=== PATIENT | male | born 1980 | race Caucasian/White ===

== ENCOUNTER 2020-01-01 17:26 | Emergency (ER) | payer MEDICARE, SELFPAY ==
[2020-01-01 17:37] VITALS: BP 135/84; PULSE 85; RESP 17; TEMP 37; O2SAT 96; BMI 36.6
--- NOTE | 2020-01-01 18:02 | ED_ITS ---
Entered by Sabrina Gilmore, acting as scribe for Jeny Michelle DO Jan 01, 2020 17:26 HPI - Extremity Problem General: Chief complaint: Extremity Injury, Lower Stated complaint: Left leg pain Time Seen by Provider: 01/01/20 18:02 Source: patient Mode of arrival: ambulatory Limitations: other (DEAF) History of Present Illness: HPI Narrative: 39 yo Male presents to ED with complaint of left lower extremity pain. Pt has had a DVT in the past and states that the pain is in the same place and feels the same. MD Complaint: extremity pain Onset (ago): hour(s) Pain Consistency: constant Location: left and lower extremity Severity scale (1-10): 10 Quality: sharp Relieving factors: nothing Exacerbating factors: nothing Associated symptoms: Deny chest pain, fever(s) or rash Context: history of DVT Review of Systems Const: Denies: fever, chills, change in appetite or malaise Eyes: Denies: change in vision, blurry vision, eye discharge or eye redness ENMT: Denies: throat pain, uvular edema, painful swallowing, mouth pain, dental pain, nasal congestion or facial/sinus pain Card: Denies: chest pain, irregular heart rhythm, swelling of feet/ankles, shortness of breath on exertion, shortness of breath when lying down or leg pain with exertion Resp: Denies: shortness of breath, productive cough, wheezing or coughing up blood GI: Denies: abdominal pain, nausea, vomiting, diarrhea, constipation or fecal incontinence : Denies: flank pain, painful urination, urinary frequency, urinary urgency or urinary hesitancy Musc: Reports: extremity pain (left lower); Denies: neck pain, back pain or extremity swelling Skin/Breast: Denies: rash, itching, redness, yellow skin or dry skin Neuro: Denies: headache, numbness in extremities, weakness in extremities, changes in sensation, lack of coordination or difficulty walking Psych: Denies: anxiety, depression, mood swings, panic attacks, sleeping less, suicidal ideation or homicidal ideation Endo: Denies: excessive urination, excessive thirst or tired all the time [place]/Lymph: Denies: easy bruising, petechiae or enlarged lymph nodes All/Imm: Denies: hives, throat swelling, facial swelling, acute wheezing or seasonal allergies PFSH ED PFSH: Statuses (acute, chronic, etc) shown below reflect problem list status as previously entered and may not be historically accurate Medical History (Updated 01/01/20 @ 19:00 by Jeny Michelle DO) DVT (deep venous thrombosis) (Acute) Social History Smoking and tobacco status: never smoked Physical Exam Const: COMMON NORMALS: no apparent distress, oriented x3, no limitations, healthy appearing, alert and well nourished GENERAL APPEARANCE: cooperative, comfortable, well kempt and well developed ORIENTATION/CONSCIOUSNESS: Yes awake, Yes oriented to person, Yes oriented to place and Yes oriented to time HENMT: COMMON NORMALS: normocephalic, head/scalp atraumatic, hearing grossly normal bilaterally, external ears normal, EAC's normal, TM's normal bilaterally, external nose normal, nasal mucous membranes and turbinates normal, moist oral mucous membranes, oropharynx normal, dentition normal and gingiva normal HEAD & SCALP: normal to inspection, normocephalic and atraumatic FACE & SINUS: normal facial exam NOSE: external nose normal and nasal mucous membranes and turbinates normal EXTERNAL EAR: Yes external ears normal EXTERNAL AUDITORY CANAL: EAC's normal TYMPANIC MEMBRANE: TM's normal bilaterally MOUTH: oral and palatal mucosa normal, lip normal and tongue normal THROAT: no uvular edema Eye: COMMON NORMALS: PERRL, EOMs intact bilaterally, conjunctivae normal, no scleral icterus and normal visual randall by confrontation GENERAL EYE: normal appearance of both eyes and normal light reflex VISUAL ACUITY: Yes acuity normal ALIGNMENT: Yes alignment normal PERIORBITAL: periorbital findings normal EYELID: eyelids normal CONJUNCTIVA: Yes conjunctivae normal SCLERA: sclerae normal PUPIL: Yes PERRL and Yes accommodation reflex normal DIRECT OPHTHALMOSCOPY: Yes normal light reflex Neck/C-Spine: COMMON NORMALS: full ROM, no lymphadenopathy, supple, no meningeal signs and no JVD GENERAL: Yes normal visual inspection CAROTIDS: Yes normal carotid upstroke CERVICAL SPINE: Yes cervical ROM normal Lymph: LYMPHATIC: no lymphadenopathy noted Chest: COMMONS NORMALS: inspection of chest normal CHEST: Yes symmetrical chest wall rise Resp: COMMON NORMALS: normal respiratory effort, no retractions, no use of accessory muscles and clear to auscultation bilaterally EFFORT & INSPECTION: Yes able to speak in complete sentences and Yes symmetric chest movement AUSCULTATION: clear to auscultation bilaterally Cardio: COMMON NORMALS: no JVD, regular rate, regular rhythm, S1 normal heart sound, S2 normal heart sound, no murmurs and peripheral pulses 2+ throughout RATE: regular rate RHYTHM: regular rhythm HEART SOUNDS: S1 normal and S2 normal PERIPHERAL PULSES: pulses 2+ throughout GI: COMMON NORMALS: normal to inspection, nondistended, normoactive bowel sounds and non-tender : COMMON NORMALS: Yes no CVA tenderness BLADDER/KIDNEY EXAM: Yes no CVA tenderness Back/Pelvis: COMMON NORMALS: no CVA tenderness, thoracic and lumbar spine normal to inspection, no thoracic nor lumbar tenderness and thoraco-lumbar ROM normal Extremity: COMMON NORMALS: normal to inspection, full ROM, normal capillary refill, no calf tenderness and no pedal edema Neuro: COMMON NORMALS: oriented x3, CN's II-XII intact bilaterally, moves all extremities, no focal motor deficits, no sensory deficits noted and gait normal SENSORIUM/ORIENTATION: Yes alert, Yes oriented to person, Yes oriented to place and Yes oriented to time MENINGEAL SIGNS: Yes no meningeal signs SPEECH: speech normal GAIT: Yes normal gait MOTOR EXAM: strength 5/5 throughout, no pronator drift and no tremor noted Psych: COMMON NORMALS: mental status grossly normal, thought process normal, cooperative, affect normal, speech normal and activity/motor behavior normal APPEARANCE: Yes well kempt SPEECH: Yes normal speech THOUGHT PROCESS: normal thought process THOUGHT CONTENT: Yes normal thought content INSIGHT: insight good Skin: COMMON NORMALS: no rashes or lesions noted, no wounds, skin turgor normal and no jaundice GENERAL SKIN EXAM: no rashes or lesions noted and turgor normal Course Vital Signs: Vital signs: Vital Signs Temperature 98.6 F 01/01/20 17:37 Pulse Rate 85 01/01/20 17:37 Respiratory Rate 17 01/01/20 17:37 Blood Pressure 135/84 01/01/20 17:37 Pulse Oximetry 96 01/01/20 17:37 Discharge Plan Discharge Patient Disposition: Home, Self-Care Clinical Impression: Claudication, intermittent Leg pain, posterior Qualifiers: Laterality: left Qualified Code(s): M79.605 - Pain in left leg Condition: Stable Prescriptions: [employer] Aspirin 325 mg tablet 325 mg PO DAILY Qty: 30 RF: 0 Discharge Orders: Discharge Order (Routine); Ordered 01/01/20 Ordered By: Jeny Michelle Referrals: Bunny Friend MD [Primary Care Provider] - Discharge Diet: Usual diet Discharge Activity: Resume usual activity Patient Instructions: Leg Cramps (ED) Coding Level of Care Code ED Pediatric Anesthesiologist for Chg Fwd Exam Problem Focused The documentation recorded by the Mando hanna Carmen, accurately reflects the service I personally performed and the decisions made by Viviana cardoza Amanda, DO Jan 01, 2020 17:26
--- NOTE | 2020-01-01 18:06 | USCV_ITS ---
Raad Miguel Angel Age: 39 Gender: M : 1980 Exam Date: 01/01/2020 18:21 Ordering Phys: Jeny Michelle DO Technologist: Celi Beltre [place] [facility] [place]: KNOWN SUPERFICIAL THROMBUS LT LSV. TODAY IT HURTS AT THAT AREA HISTORY: Known superficial thrombus lt LSV. Today it hurts at that same area PROCEDURES: Venous duplex imaging was performed in only the left lower extremity. The following venous structures were evaluated: common femoral vein, profunda vein, proximal portion of the greater saphenous vein, superficial femoral vein, and the popliteal vein. In addition, the posterior tibial, Lt LSV andd peroneal trunk were evaluated. Serial compression, augmentation maneuvers, and spectral Doppler flow evaluation were performed. FINDINGS: No DVT seen in any vessel examined today. There is old thrombus in the Lt LSV in the Pop fossa. There is flow in the Lt LSV. CONCLUSIONS 1. No evidence of left lower extremity occlusive or obvious non occlusive DVT. 2. Improved left lower extremity superficial thrombophlebitis. Jens Kirkland MD (Electronically Signed) Final Date: 02 January 2020 11:29 S
[2020-01-01 19:05] VITALS: BP 182/92; PULSE 86; RESP 18; O2SAT 97
== END 2020-01-01 19:05 | disposition home or self-care (01) ==
PROVIDERS: Emergency Provider Emergency Medicine; Family Provider Family Medicine; PCP Family Medicine
DX: M79.605 Pain in left leg (principal); I73.9 Peripheral vascular disease, unspecified; Z86.718 Personal history of other venous thrombosis and embolism
CPT/HCPCS: 93971; 99281; 99282

== ENCOUNTER 2020-02-22 13:25 | Emergency (ER) | payer MEDICARE, MEDICAID, SELFPAY ==
[2020-02-22 13:27] VITALS: BP 151/92; PULSE 74; RESP 16; TEMP 36.7; O2SAT 96; BMI 36.6
--- NOTE | 2020-02-22 13:36 | W.ED.BACK ---
HPI - Back Pain/Injury General: Chief Complaint: Back Pain/Injury Stated Complaint: BACK PAIN Time Seen by Provider: 02/22/20 13:35 Source: patient Mode of arrival: ambulatory Limitations: language barrier (pt is deaf) History of Present Illness: HPI Narrative: Patient is a 40-year-old male who presents to ED today with complaints of lower back pain. Patient is deaf and all communication involved writing questions and answers on paper. He tells me back pain initially began about 5 days ago. He had no known injury or trauma. He denies any radicular symptoms to his pain. Patient does have a history of previous back pains. He denies any saddle anesthesia. He has not had any problems with urinating or defecating. Patient was seen at urgent care recently but continues to have pain. Patient states his primary care provider is at [facility]. MD elicited complaint: back pain Pertinent past history: prior back pain Onset (ago): day(s) Timing: constant Severity: moderate Similar Symptoms Previously: Yes Location: lumbar spine Radiation: none Exacerbating factors: movement and lifting Relieving factors: none Associated symptoms: Reports no associated symptoms; Deny abdominal pain, chills, dysuria, fever(s), nausea, urinary urgency or vomiting Review of Systems Const: Denies: fever or chills Card: Denies: chest pain Resp: Denies: shortness of breath GI: Denies: abdominal pain, nausea or vomiting : Denies: flank pain, difficulty urinating, painful urination, urinary frequency or urinary urgency Musc: Reports: back pain; Denies: neck pain, extremity pain, extremity swelling, joint pain or joint swelling Neuro: Denies: headache, numbness in extremities, weakness in extremities or changes in sensation [facility] PFSH: Medical History (Updated 02/22/20 @ 14:01 by ZEKE Johnson) DVT (deep venous thrombosis) Social History Smoking and tobacco status: never smoked Physical Exam Const: COMMON NORMALS: no apparent distress, oriented x3 and alert NUTRITIONAL APPEARANCE: obese HENMT: COMMON NORMALS: normocephalic and head/scalp atraumatic HEAD & SCALP: normocephalic and atraumatic Resp: COMMON NORMALS: normal respiratory effort and clear to auscultation bilaterally AUSCULTATION: clear to auscultation bilaterally Cardio: COMMON NORMALS: regular rate and regular rhythm RATE: regular rate RHYTHM: regular rhythm : COMMON NORMALS: Yes no CVA tenderness BLADDER/KIDNEY EXAM: Yes no CVA tenderness Back/Pelvis: COMMON NORMALS: no CVA tenderness, thoraco-lumbar ROM normal and straight leg raise negative bilaterally THORACIC SPINE/UPPER BACK: Yes normal to inspection, No thoracic spinal tenderness and No paraspinal muscle spasm LUMBAR SPINE/LOWER BACK: Yes lumbar spinal tenderness Lumbar spinal tenderness location: L3, L4 and L5 and Yes paraspinal muscle tenderness Lumbar paraspinal muscle tenderness: bilateral PELVIS: Yes buttocks normal SACROILIAC JOINTS: Yes SI joints normal Extremity: COMMON NORMALS: normal to inspection, full ROM, normal capillary refill, no joint enlargement, no calf tenderness and no pedal edema Neuro: COMMON NORMALS: oriented x3, no focal motor deficits, no sensory deficits noted and gait normal SENSORIUM/ORIENTATION: Yes alert GAIT: Yes normal gait MOTOR EXAM: strength 5/5 throughout Skin: COMMON NORMALS: no rashes or lesions noted GENERAL SKIN EXAM: no rashes or lesions noted Course Vital Signs: Vital signs: Vital Signs Temperature 98.1 F 02/22/20 13:27 Pulse Rate 74 02/22/20 13:27 Respiratory Rate 16 02/22/20 14:28 Blood Pressure 171/91 02/22/20 14:28 Pulse Oximetry 96 02/22/20 13:27 MDM - Back Pain/Injury MDM Narrative: Medical decision making narrative: Explained to patient how XRs will be of very low yield on today's visit. There is no neurological deficits to warrant emergent CT imaging. Recommend he follow-up with his primary care provider for continued pain. Discharge Plan Discharge Patient Disposition: Home, Self-Care Clinical Impression: Acute back pain Qualifiers: Back pain location: low back pain Back pain laterality: midline Sciatica presence: without sciatica Qualified Code(s): M54.5 - Low back pain Condition: Stable Prescriptions: New cyclobenzaprine 10 mg tablet 10 mg PO TID Qty: 14 RF: 0 tramadol 50 mg tablet 50 mg PO Q6H PRN (Reason: pain) Qty: 14 RF: 0 No Action ketorolac 30 mg/mL solution 60 mg IM ONCE Qty: 2 RF: 0 baclofen 10 mg tablet 10 mg PO TID PRN (Reason: muscle spasm) Qty: 15 RF: 0 aspirin 325 mg tablet 325 mg PO DAILY PRN (Reason: pain) Qty: 30 RF: 0 Discharge Orders: Discharge Order (Routine); Ordered 02/22/20 Ordered By: Michelle Powers Referrals: Bunny Friend MD [Primary Care Provider] - Discharge Diet: Usual diet Discharge Activity: Increase activity as tolerated Patient Instructions: Acute Low Back Pain (ED), Back Pain (ED) Activity Restrictions/Additional Instructions: 1) Finish your prednisone prescription as directed 2) You may take the cyclobenzaprine prescription for a muscle relaxer if you are out of your baclofen-DO NOT TAKE THESE MEDICATIONS TOGETHER 3) You may continue the aspirin that was prescribed OR you may try 800mg Ibuprofen ever 6-8 hours. DO NOT TAKE BOTH TOGETHER. 4) Please follow up with your primary care provider for further evaluation. Coding Level of Care Code ED Nursing Resident for Nati Pierce
[2020-02-22] MEDS: orphenadrine 30 mg/mL Inj 2 mL 60 MG IM (14:02)
[2020-02-22] MEDS: dexamethasone 10 mg/mL INJ IM (14:02)
[2020-02-22 14:28] VITALS: BP 171/91; RESP 16
== END 2020-02-22 14:38 | disposition home or self-care (01) ==
PROVIDERS: Emergency Provider Physician Assistant; Family Provider Family Medicine; PCP Family Medicine
DX: M54.5 Low back pain (principal); E66.9 Obesity, unspecified; Z68.36 Body mass index [BMI] 36.0-36.9, adult
CPT/HCPCS: 12345; 96372; 99281; 99283; J1100; J2360

== ENCOUNTER 2020-05-30 08:42 | Emergency (ER) | payer MEDICARE, MEDICAID, SELFPAY ==
[2020-05-30 08:48] VITALS: BP 164/113; PULSE 81; RESP 18; TEMP 36.6; O2SAT 96; BMI 36.6
[2020-05-30 09:07] VITALS: BP 147/91; PULSE 78; RESP 17; O2SAT 96
--- NOTE | 2020-05-30 09:08 | ECG_ITS ---
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 Measurements Intervals [place] Rate: 82 P: 57 [place]: 185 QRS: 23 QRSD: 112 T: 35 QT: 366 QTc: 429 Interpretive Statements SINUS RHYTHM POSSIBLE LEFT ATRIAL ENLARGEMENT [-0.1mV P WAVE IN V1/V2] MODERATE INTRAVENTRICULAR CONDUCTION DELAY [110+ ms QRS DURATION] NONSPECIFIC T-WAVE ABNORMALITY Compared to ECG 01/20/2016 09:16:03 Intraventricular conduction delay now present T-wave abnormality now present Electronically Signed On 05-30-2020 21:40:43 CDT by Joseph Otero M.D. [id number] f
--- NOTE | 2020-05-30 09:08 | XRR_ITS ---
PROCEDURE INFORMATION: Exam: XR Chest, 1 View Exam date and time: 05/30/2020 9:33 AM Age: 40 years old Clinical indication: Chest pain; Type not specified TECHNIQUE: Imaging protocol: XR of the chest Views: 1 view. COMPARISON: CR Chest 2 views* [id number] 10/06/2018 9:28 PM FINDINGS: Lungs: Unremarkable. No consolidation. Pleural space: Unremarkable. No pleural effusion. No pneumothorax. Heart/Mediastinum: Unremarkable. No cardiomegaly. Bones/joints: Unremarkable. XR/XR chest 1V portable [id number] IMPRESSION: No acute findings.
--- NOTE | 2020-05-30 09:16 | W.ED.CHESTPA ---
HPI - Chest Pain General: Chief Complaint: Chest Pain Stated Complaint: CP/GOLDBERG Time Seen by Provider: 05/30/20 08:50 History of Present Illness: HPI narrative: 40-year-old male presents emergency room with complaint of chest pain. Patient is a chest pain for last 2 to 3 days is worse with moving his arms when he pushes or pulls things he has been slightly short of breath with it he is diaphoretic. Patient is not able to speak he is mute and deaf he communicated with me with a friend who signs for him. He denies any nausea or vomitiing. He has noticed that with palpation across the chest wall it actually gets worse he can reproduce the pain in the chest pressure on the lateral left chest wall. He denies any GI or symptoms not had any cough or shortness of breath or fevers not been around anyone positive for [place] that he is aware of. MD complaint: chest pain Onset (ago): day(s) (2) Timing of current episode: episodic Prior episodes: No Onset: during exertion Pain location: left chest Pain radiation: none Quality: aching Relieving factors: remaining still and sitting upright Exacerbating factors: palpation (Left chest wall and lateral pectoralis muscle) Associated symptoms: Reports no associated symptoms; Deny abdominal pain, dyspnea, fever(s), nausea or vomiting Review of Systems Const: Denies: fever(s), chills, body aches, change in appetite, fatigue or malaise ENMT: Denies: throat pain, ear or mastoid pain, nasal discharge or nasal congestion Card: Denies: chest pain, edema, dyspnea on exertion or orthopnea Resp: Denies: dyspnea, productive cough or non-productive cough GI: Denies: abdominal pain, nausea, vomiting, hematemesis, coffee ground emesis, diarrhea, constipation, bloating, hematochezia or melena : Denies: flank pain, dysuria, urinary frequency or urinary urgency Skin/Breast: Denies: rash or pruritus PFSH ED PFSH: Medical History Deaf DVT (deep venous thrombosis) Surgical History H/O left knee surgery Social History Smoking and tobacco status: never smoked Physical Exam Const: COMMON NORMALS: no acute distress GENERAL APPEARANCE: cooperative and comfortable ORIENTATION/CONSCIOUSNESS: Yes awake, Yes oriented to person, Yes oriented to place and Yes oriented to time HENMT: COMMON NORMALS: normocephalic, atraumatic, Normal nasal mucous membranes and turbinates present, moist oral mucous membranes and oropharynx normal HEAD & SCALP: normocephalic and atraumatic NOSE: Normal nasal mucous membranes and turbinates present Eye: COMMON NORMALS: Equal, round and reactive pupils present, EOMs intact bilaterally, conjunctivae normal and no scleral icterus CONJUNCTIVA: Yes conjunctivae normal PUPIL: Yes Equal, round and reactive pupils present Neck/C-Spine: COMMON NORMALS: full ROM, no lymphadenopathy, supple and no JVD Lymph: LYMPHATIC: no lymphadenopathy noted and no lymphedema noted Chest: OTHER: Reproducible chest wall pain in the left lateral pectoralis muscle and anterior axillary line patient states that reproduce the pain that brought him in today. Resp: COMMON NORMALS: normal respiratory effort, No retractions, No use of accessory muscles and clear to auscultation bilaterally AUSCULTATION: clear to auscultation bilaterally Cardio: COMMON NORMALS: no JVD, regular rate, regular rhythm and No murmurs present (Cardio) RATE: regular rate RHYTHM: regular rhythm GI: COMMON NORMALS: Soft to palpation and No hepatosplenomegaly present AUSCULTATION: Yes normoactive bowel sounds PALPATION: Yes Soft to palpation, No Tenderness to palpation present (GI), No Guarding due to palpation present (GI) and Yes No hepatosplenomegaly present Extremity: COMMON NORMALS: normal to inspection, capillary refill normal, no clubbing, cyanosis or edema, no calf tenderness and no pedal edema Neuro: SENSORIUM/ORIENTATION: Yes oriented to person, Yes oriented to place and Yes oriented to time Skin: COMMON NORMALS: no rashes or lesions noted GENERAL SKIN EXAM: no rashes or lesions noted Course Vital Signs: Vital signs: Vital Signs Temperature 97.8 F 05/30/20 08:48 Pulse Rate 85 05/30/20 12:17 Respiratory Rate 15 05/30/20 12:17 Blood Pressure 144/105 05/30/20 12:17 Pulse Oximetry 96 05/30/20 12:17 MDM - Chest Pain MDM Narrative: Medical decision making narrative: His blood pressure did improve slightly while he was here we will hold off on treating anything that have him follow-up with his primary care doctor we will have him start taking an aspirin daily and we will set him up for an exercise test as worsening change symptoms return to the emergency room Lab Data: Labs: Lab Results 05/30/20 05/30/20 05/30/20 Range/Units 09:07 09:07 09:07 WBC 8.9 (4.0-10.0) 10^3/ uL RBC 5.28 (4.1-5.3) 10^6/u L Hgb 14.9 (11.7-16.6) g/dL Hct 45.1 (42.0-52.0) % MCV 85.4 (80-94) fL MCH 28.2 (28.0-34.0) pg MCHC 33.0 (30.0-36.0) g/dL RDW 12.5 (12.1-15.1) % Plt Count 339 (130-400) 10^3/c mm MPV 9.4 (7.4-10.4) fL Neut % (Auto) 57.5 % Lymph % (Auto) 28.5 % [place] % (Auto) 8.7 % Eos % (Auto) 4.2 % Baso % (Auto) 0.7 % Neut # (Auto) 5.1 (1.8-7.7) 10^3/u L Lymph # (Auto) 2.5 (0.8-4.8) 10^3/u L [place] # (Auto) 0.8 (0.2-0.9) 10^3/u L Eos # (Auto) 0.4 (0.0-0.8) 10^3/u L Baso # (Auto) 0.1 (0.0-0.1) 10^3/u L Nucleated RBC % (a uto) 0 % Nucleated RBCs # 0.0 /100WBC Sodium 139 (136-145) mmol/L Potassium 4.2 (3.5-5.1) mmol/L Chloride 102 (98-107) mmol/L Carbon Dioxide 25 (22-29) mmol/L Anion Gap 16.2 (5-19) BUN 15 (6-20) mg/dL Creatinine 0.9 (0.7-1.2) mg/dL GFR Calculation 94.4 (90-130) mL/min Glucose 96 (65-115) mg/dL Calculated Osmolal ity 284 L (285-295) mOsm/k g Calcium 10.2 (8.5-10.5) mg/dL Total Bilirubin 0.3 (0.15-1.2) mg/dL AST 19 (0-40) U/L ALT 27 (0-41) U/L Alkaline Phosphata se 94 (40-130) IU/L Troponin T Baselin e 8 (0-15) ng/L Troponin T 120 Min [place] (0-15) ng/L Delta Troponin T (0-10) ABS# Total Protein 7.0 (6.6-8.7) g/dL Albumin 4.9 (3.5-5.2) g/dL Globulin 2.1 (1.3-4.6) g/dL 05/30/20 Range/Units 11:07 WBC (4.0-10.0) 10^3/ uL RBC (4.1-5.3) 10^6/u L Hgb (11.7-16.6) g/dL Hct (42.0-52.0) % MCV (80-94) fL MCH (28.0-34.0) pg MCHC (30.0-36.0) g/dL RDW (12.1-15.1) % Plt Count (130-400) 10^3/c mm MPV (7.4-10.4) fL Neut % (Auto) % Lymph % (Auto) % [place] % (Auto) % Eos % (Auto) % Baso % (Auto) % Neut # (Auto) (1.8-7.7) 10^3/u L Lymph # (Auto) (0.8-4.8) 10^3/u L [place] # (Auto) (0.2-0.9) 10^3/u L Eos # (Auto) (0.0-0.8) 10^3/u L Baso # (Auto) (0.0-0.1) 10^3/u L Nucleated RBC % (a uto) % Nucleated RBCs # /100WBC Sodium (136-145) mmol/L Potassium (3.5-5.1) mmol/L Chloride (98-107) mmol/L Carbon Dioxide (22-29) mmol/L Anion Gap (5-19) BUN (6-20) mg/dL Creatinine (0.7-1.2) mg/dL GFR Calculation (90-130) mL/min Glucose (65-115) mg/dL Calculated Osmolal ity (285-295) mOsm/k g Calcium (8.5-10.5) mg/dL Total Bilirubin (0.15-1.2) mg/dL AST (0-40) U/L ALT (0-41) U/L Alkaline Phosphata se (40-130) IU/L Troponin T Baselin e (0-15) ng/L Troponin T 120 Min [place] 7.76 (0-15) ng/L Delta Troponin T -0.24 L (0-10) ABS# Total Protein (6.6-8.7) g/dL Albumin (3.5-5.2) g/dL Globulin (1.3-4.6) g/dL Discharge Plan Discharge Patient Disposition: Home, Self-Care Clinical Impression: Atypical chest pain, Hypertension Condition: Stable Prescriptions: New Adult Low Dose Aspirin 81 mg tablet,delayed release (DR/EC) 81 mg PO DAILY Qty: 30 RF: 0 No Action No Known Home Medications RF: 0 Discharge Orders: Discharge Order (Routine); Ordered 05/30/20 Ordered By: Román Richard Referrals: Bunny Friend MD [Primary Care Provider] - Discharge Diet: Usual diet Discharge Activity: Resume usual activity Activity Restrictions/Additional Instructions: Case management will call to make an appointment for exercise test Interventions: ED Discharge Assessment Last Done: 05/30/20 12:17 ED Charges Last Done: 05/30/20 12:17 Discharge Date/Time: 05/30/20 12:17 Coding Level of Care Code ED Manufacturing Design Engineer for Nati Pierce
[2020-05-30] MEDS: HYDROcodone-acetaminophen 7.5-325 mg Tablet 1 TAB PO (09:30)
[2020-05-30 09:34] LABS: Basophils # 0.1 10^3/uL (0.0-0.1); Basophils % 0.7 %; Eosinophils # 0.4 10^3/uL (0.0-0.8); Eosinophils % 4.2 %; Hematocrit 45.1 % (42.0-52.0); Hemoglobin 14.9 g/dL (11.7-16.6); Lymphocytes # 2.5 10^3/uL (0.8-4.8); Lymphocytes % 28.5 %; Mean Corpuscular Hemoglobin 28.2 pg (28.0-34.0); Mean Corpuscular Volume 85.4 fL (80-94); Mean Platelet Volume 9.4 fL (7.4-10.4); Monocytes # 0.8 10^3/uL (0.2-0.9); Monocytes % 8.7 %; Neutrophils # 5.1 10^3/uL (1.8-7.7); Neutrophils % 57.5 %; Nucleated Red Blood Cells % 0 %; Platelet Count 339 10^3/cmm (130-400); Red Blood Count 5.28 10^6/uL (4.1-5.3); Red Cell Distribution Width 12.5 % (12.1-15.1); White Blood Count 8.9 10^3/uL (4.0-10.0)
[2020-05-30 09:53] LABS: Alanine Aminotransferase 27 U/L (0-41); Albumin Level 4.9 g/dL (3.5-5.2); Alkaline Phosphatase 94 IU/L (40-130); Anion Gap 16.2 (5-19); Aspartate Amino Transferase 19 U/L (0-40); Blood Urea Nitrogen 15 mg/dL (6-20); Calcium 10.2 mg/dL (8.5-10.5); Carbon Dioxide 25 mmol/L (22-29); Chloride 102 mmol/L (98-107); Globulin 2.1 g/dL (1.3-4.6); Glomerular Filtration Rate 94.4 mL/min (90-130); Glucose 96 mg/dL (65-115); Osmolality Calculated 284 mOsm/kg (285-295); Potassium 4.2 mmol/L (3.5-5.1); Sodium 139 mmol/L (136-145); Total Bilirubin 0.3 mg/dL (0.15-1.2)
[2020-05-30 09:55] LABS: Troponin(5th) Baseline 8 ng/L (0-15)
[2020-05-30 10:25] VITALS: BP 153/97; PULSE 76; RESP 15; O2SAT 96
[2020-05-30 11:03] VITALS: BP 154/100; PULSE 69; RESP 18; O2SAT 97
--- NOTE | 2020-05-30 11:08 | ECG_ITS ---
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 Measurements Intervals [place] Rate: 63 P: 43 [place]: 197 QRS: 16 QRSD: 100 T: 29 QT: 403 QTc: 413 Interpretive Statements SINUS RHYTHM Compared to ECG 05/30/2020 09:00:11 Intraventricular conduction delay no longer present T-wave abnormality no longer present Electronically Signed On 05-30-2020 21:45:53 CDT by Joseph Otero M.D. [id number]
[2020-05-30 11:30] LABS: Troponin 5 2HR 7.76 ng/L (0-15)
[2020-05-30 11:33] LABS: Troponin 5 2HR Delta -0.24 ABS# (0-10)
[2020-05-30 12:17] VITALS: BP 144/105; PULSE 85; RESP 15; O2SAT 96
--- NOTE | 2020-05-31 15:28 | DCPLANNER ---
water resource project manager had message to schedule an out patient stress test for patient. water resource project manager faxed order to centralized scheduling, will call for appointment information.
--- NOTE | 2020-06-06 14:56 | DCPLANNER ---
Patient has a stress scheduled for 06.07.20, the test has been cancelled.
== END 2020-05-30 12:17 | disposition home or self-care (01) ==
PROVIDERS: Emergency Provider Family Medicine; Family Provider Family Medicine; PCP Family Medicine
DX: R07.89 Other chest pain (principal); I10 Essential (primary) hypertension
CPT/HCPCS: 12345; 36415; 71045; 80053; 84484; 85025; 93005; 99283

== ENCOUNTER 2020-08-02 12:58 | Emergency (ER) | payer MEDICARE, MEDICAID, SELFPAY ==
[2020-08-02 13:09] VITALS: BP 154/100; PULSE 63; RESP 18; TEMP 36.2; O2SAT 95; BMI 37.2
[2020-08-02 15:25] VITALS: BP 177/107; PULSE 67; RESP 19
--- NOTE | 2020-08-02 15:42 | ED_ITS ---
HPI - Headache General: Chief Complaint: Headache Stated Complaint: head ache/ thinks from hit head in 2002-3/not sure Time Seen by Provider: 08/02/20 15:09 History of Present Illness: HPI Narrative: 40-year-old male patient presents to the emergency department with complaints of headache that started this morning. He reports headache is located in the back of his head. He reports ear pain and slight sore throat. He denies ill contacts. He reports attempted to take [id number] medication this morning without help. He denies nausea vomiting, cough congestion, fever or chills. He reports sore throat and earache started this afternoon. He denies further symptoms. Associated symptoms: Deny chest pain, confusion, diaphoresis, fever(s), nausea, rash or vomiting Review of Systems General: Reports: 10 or more systems reviewed and unremarkable except in HPI and below Const: Denies: fever(s), chills, body aches or diaphoresis Eyes: Denies: blurry vision or eye redness ENMT: Reports: throat pain, ear or mastoid pain and nasal congestion; Denies: dental pain or disequilibrium Card: Denies: chest pain, palpitations or irregular heart rhythm Resp: Denies: dyspnea, productive cough, non-productive cough or wheezing GI: Denies: abdominal pain, nausea or vomiting : Denies: dysuria Musc: Denies: back pain Skin/Breast: Denies: rash or pruritus Neuro: Reports: headache(s); Denies: numbness in extremities, weakness in extremities, lack of coordination, difficulty walking, frequent falls, dizziness, vertigo, confusion, behavioral changes, Slurred speech present, difficulty communicating thoughts, seizure-like activity or involuntary movements Carlton/Lymph: Denies: easy bruising [facility] ED PFS: Medical History (Updated 08/02/20 @ 15:59 by ROSEMARIE Bob) Deaf DVT (deep venous thrombosis) Surgical History H/O left knee surgery Social History Smoking and tobacco status: never smoked Physical Exam Const: COMMON NORMALS: no acute distress, patient oriented x3, healthy appearing and alert GENERAL APPEARANCE: cooperative, comfortable, well developed and well hydrated NUTRITIONAL APPEARANCE: obese ORIENTATION/CONSCIOUSNESS: Yes awake, Yes oriented to person and Yes oriented to place; not confused HENMT: COMMON NORMALS: normocephalic, external ears normal, Normal external nose present and moist oral mucous membranes HEAD & SCALP: normocephalic FACE & SINUS: normal facial exam and sinus tenderness maxillary (Bilateral) NOSE: Normal external nose present EXTERNAL EAR: Yes external ears normal TYMPANIC MEMBRANE: TM abnormal (Slight erythema, no deviation of light reflex, slightly retracted) TM laterality: bilateral MOUTH: Normal oral and palatal mucosa present THROAT: posterior oropharynx normal, tonsils normal and uvula midline Eye: COMMON NORMALS: Equal, round and reactive pupils present and EOMs intact bilaterally GENERAL EYE: appearance normal, both eyes and all related structures PUPIL: Yes Equal, round and reactive pupils present Neck/C-Spine: COMMON NORMALS: full ROM, no lymphadenopathy and no meningeal signs GENERAL: Yes normal visual inspection and Yes trachea midline CERVICAL SPINE: Yes cervical ROM normal Lymph: LYMPHATIC: lymphadenopathy (Slight tenderness of the right sub- tonsillar node, no enlargement) Chest: COMMONS NORMALS: normal inspection of the chest Resp: COMMON NORMALS: normal respiratory effort and clear to auscultation bilaterally AUSCULTATION: clear to auscultation bilaterally Cardio: COMMON NORMALS: regular rhythm, S1 normal heart sound present and S2 normal heart sound present RHYTHM: regular rhythm HEART SOUNDS: S1 normal heart sound present and S2 normal heart sound present GI: COMMON NORMALS: Soft to palpation and non-tender INSPECTION: Yes normal to inspection PALPATION: Yes Soft to palpation : COMMON NORMALS: Yes no CVA tenderness BLADDER/KIDNEY EXAM: Yes no CVA tenderness Back/Pelvis: COMMON NORMALS: no CVA tenderness and thoracic and lumbar spine normal to inspection Extremity: COMMON NORMALS: normal to inspection and capillary refill normal Neuro: SAKSHI COMA SCALE: document GCS findings Smilax coma scale eye opening: Spontaneous Sakshi coma scale verbal response: Orientated Smilax coma scale motor response: Obey commands Sakshi coma scale total score: 15 COMMON NORMALS: patient oriented x3 and no focal motor deficits SENSORIUM/ORIENTATION: Yes alert, Yes oriented to person and Yes oriented to place MENINGEAL SIGNS: Yes no meningeal signs CRANIAL NERVES: Yes CN normal except as noted COORDINATION/BALANCE: [id number] test normal SPEECH: abnormal speech (deaf since childhood) GAIT: Yes Normal gait present MOTOR EXAM: 5/5 motor strength present throughout COORDINATION: [id number] test normal and Romberg test normal Right pupil size (mm): 4 Left pupil size (mm): 4 Psych: COMMON NORMALS: mental status grossly normal, Normal thought process present and cooperative ACTIVITY/MOTOR BEHAVIOR: Yes appropriate eye contact THOUGHT PROCESS: Normal thought process present Skin: COMMON NORMALS: no rashes or lesions noted and turgor normal GENERAL SKIN EXAM: no rashes or lesions noted and turgor normal Course Vital Signs: Vital signs: Vital Signs Temperature 97.2 F L 08/02/20 13:09 Pulse Rate 67 08/02/20 16:35 Respiratory Rate 19 H 08/02/20 16:35 Blood Pressure 150/82 08/02/20 16:35 Pulse Oximetry 95 08/02/20 13:09 Discharge Plan Discharge Patient Disposition: Home Clinical Impression: Headache Qualifiers: Headache type: unspecified Headache chronicity pattern: episodic headache Intractability: intractable Qualified Code(s): R51 - Headache Sinusitis Qualifiers: Sinusitis location: maxillary Chronicity: acute Recurrence: non-recurrent Qualified Code(s): J01.00 - Acute maxillary sinusitis, unspecified Condition: Stable Prescriptions: New fluticasone propionate 50 mcg/actuation spray,suspension 2 spray INTRANASAL Q12H PRN (Reason: nasal congestion) Qty: 15.8 RF: 0 No Action aspirin [Adult Low Dose Aspirin] 81 mg tablet,delayed release (DR/EC) 81 mg PO DAILY Qty: 30 RF: 0 Discharge Orders: Discharge Order (Routine); Ordered 08/02/20 Ordered By: Milli Cox Referrals: Bunny Friend MD [Primary Care Provider] - Discharge Diet: Usual diet Discharge Activity: Resume usual activity Patient Instructions: Sinusitis (ED), Acute Headache (ED) Activity Restrictions/Additional Instructions: Use nasal spray as needed for nasal congestion You may take Tylenol as needed for headache If fever or chills occur, contact your primary care provider, antibiotics may be warranted Antibiotics were not warranted at this time as you do not have fever or chills. Symptoms have not persisted for longer than 10 days. If you develop the worst headache of your life, return to the emergency department for further evaluation especially if nausea vomiting and confusion occur. Discharge Date/Time: 08/02/20 16:30 Coding Level of Care Code ED Colon And Rectal Surgeon for Chg Fwd Exam Comprehensive
[2020-08-02] MEDS: diphenhydrAMINE 50 mg/mL SDV 1mL IM (15:55)
[2020-08-02] MEDS: ketorolac 60 mg/2 mL INJ IM (15:55)
[2020-08-02 16:35] VITALS: BP 150/82; PULSE 67; RESP 19
== END 2020-08-02 16:30 | disposition home or self-care (01) ==
PROVIDERS: Emergency Provider Nurse Practitioner Family; PCP Family Medicine
DX: R51 Headache (principal); J01.00 Acute maxillary sinusitis, unspecified
CPT/HCPCS: 12345; 96375; 99283; J1200; J1885

== ENCOUNTER 2021-04-25 07:12 | Emergency (ER) | payer MEDICARE, MEDICAID, SELFPAY ==
--- NOTE | 2021-04-25 07:15 | ED_ITS ---
HPI - Extremity Injury (Upper) General: Chief Complaint: Extremity Injury, Upper Stated Complaint: RUE INJURY - PATIENT IS DEAF Time Seen by Provider: 04/25/21 07:14 History of Present Illness: HPI narrative: 41 year old male with complaints of R wrist pain. Began after he was at work he was lifting something in felt like a popping sensation in his wrist and discomfort after that no other injury. No previous injury to the wrist injury. Patient is deaf communication via written MD complaint: injury to: left and wrist Onset (ago): day(s) Other injuries: none Handedness: right Place: work Severity: moderate Relieving factors: immobilization and rest Exacerbating factors: movement of extremity Context: other Associated symptoms: Denies crepitus, foreign body sensation, numbness or weakness in extremities Review of Systems Musc: Reports: joint pain; Denies: extremity swelling, joint swelling, joint redness, joint warmth or joint stiffness Neuro: Denies: weakness in extremities PFSH ED PFSH: Medical History Bursitis and tendinitis of shoulder region Deaf Deaf, nonspeaking DVT (deep venous thrombosis) Elevated blood pressure reading in office with diagnosis of hypertension Obesity (BMI 35.0-39.9 without comorbidity) Surgical History H/O left knee surgery Social History Smoking and tobacco status: never smoked Physical Exam Const: COMMON NORMALS: no acute distress GENERAL APPEARANCE: cooperative and comfortable ORIENTATION/CONSCIOUSNESS: Yes awake, Yes oriented to person, Yes oriented to place and Yes oriented to time HENMT: COMMON NORMALS: normocephalic and atraumatic HEAD & SCALP: normocephalic and atraumatic Neck/C-Spine: COMMON NORMALS: no JVD Resp: COMMON NORMALS: normal respiratory effort, No retractions, No use of accessory muscles and clear to auscultation bilaterally AUSCULTATION: clear to auscultation bilaterally Cardio: COMMON NORMALS: no JVD, regular rate, regular rhythm and No murmurs present (Cardio) RATE: regular rate RHYTHM: regular rhythm Extremity: NARRATIVE EXTREMITY EXAM: Mild discomfort with range of motion no pain to anatomical snuffbox no pain with axial loading no deformity on examination of the right wrist. Neuro: SENSORIUM/ORIENTATION: Yes oriented to person, Yes oriented to place and Yes oriented to time Course Vital Signs: Vital signs: Vital Signs Temperature 97.3 F L 04/25/21 07:49 Pulse Rate 67 04/25/21 07:49 Respiratory Rate 20 H 04/25/21 07:49 Blood Pressure 163/91 04/25/21 07:49 Pulse Oximetry 97 04/25/21 07:49 MDM - Extremity Injury (Upper) MDM Narrative: Medical decision making narrative: Right wrist x-ray is negative. Discharge home with anti-inflammatories increase activity as tolerated recheck if not improving Discharge Plan Discharge Patient Disposition: Home Clinical Impression: Sprain of left wrist Condition: Stable Prescriptions: No Action naproxen [EC-Naproxen] 500 mg tablet,delayed release (DR/EC) 500 mg PO BID Qty: 20 RF: 0 Discharge Orders: Discharge ED (Routine); Ordered 04/25/21 Ordered By: Román Richard Referrals: Kirit Martino MD [Primary Care Provider] - Discharge Diet: Usual diet Discharge Activity: Resume usual activity Patient Instructions: Opioid Safety Coding Level of Care Code ED Food Safety Director for Nati Pierce
[2021-04-25 07:49] VITALS: BP 163/91; PULSE 67; RESP 20; TEMP 36.3; O2SAT 97; BMI 37.2
--- NOTE | 2021-04-25 07:57 | XRR_ITS ---
PROCEDURE INFORMATION: Exam: XR Right Wrist Exam date and time: 04/25/2021 7:59 AM Age: 41 years old Clinical indication: Injury or trauma; Fall; Blunt trauma (contusions or hematomas); Wrist; Right; Injury details: Fell off horse; Additional info: Wrist pain TECHNIQUE: Imaging protocol: XR Right wrist. Views: 3 or more views. COMPARISON: No relevant prior studies available. FINDINGS: Bones/joints: Radial ulnar joint normal. Carpus is normal. Metacarpals normal. Visualized portions of the phalanges normal. No triquetral fracture. Soft tissues: Normal. XR/XR wrist RT w scaphoid [id number] IMPRESSION: Normal wrist.
[2021-04-25 09:00] VITALS: RESP 18
== END 2021-04-25 09:00 | disposition home or self-care (01) ==
PROVIDERS: Emergency Provider Family Medicine; PCP Family Medicine Adult Medicine
DX: S63.502A Unspecified sprain of left wrist, initial encounter (principal); X50.0XXA Overexertion from strenuous movement or load, initial encounter; Y99.0 Civilian activity done for income or pay
CPT/HCPCS: 73110; 99282

== ENCOUNTER → 2021-05-12 10:45 | Outpatient (BNVA) | payer MEDICARE, MEDICAID, SELFPAY | PROVIDERS: PCP Family Medicine Adult Medicine; Visit Provider Nurse Practitioner | DX: M79.641 Pain in right hand (principal) | CPT/HCPCS: 73130 ==

== ENCOUNTER 2021-05-13 | Emergency (ER) | payer MEDICARE, MEDICAID, SELFPAY ==
[2021-05-13 00:39] VITALS: BP 166/99; PULSE 83; RESP 18; TEMP 36.8; O2SAT 96; BMI 29.6
--- NOTE | 2021-05-13 01:17 | W.ED.EXTPRO ---
HPI - Extremity Problem General: Chief complaint: Extremity Injury, Upper Stated complaint: Rt hand is swollen, PT dizzy Time Seen by Provider: 05/13/21 01:17 History of Present Illness: HPI Narrative: 41-year-old fit male patient comes in today with redness and swelling to the fourth knuckle on the right hand. Patient had been seen earlier today at primary care office and had an x-ray which showed no fracture. Patient was then placed on some cephalexin to help with a probable cellulitis. Patient reports that the cephalexin causes him to feel dizzy. Patient denies any other concerns. Review of Systems General: Reports: 10 or more systems reviewed and unremarkable except in HPI and below Skin/Breast: Reports: erythema PFSH ED PFSH: Medical History Bursitis and tendinitis of shoulder region Deaf Deaf, nonspeaking DVT (deep venous thrombosis) Elevated blood pressure reading in office with diagnosis of hypertension Obesity (BMI 35.0-39.9 without comorbidity) Surgical History H/O left knee surgery Social History Smoking and tobacco status: never smoked Physical Exam Const: COMMON NORMALS: no acute distress and patient oriented x3 GENERAL APPEARANCE: cooperative HENMT: COMMON NORMALS: normocephalic and Normal external nose present HEAD & SCALP: normal to inspection and normocephalic NOSE: Normal external nose present MOUTH: Normal oral and palatal mucosa present Eye: GENERAL EYE: appearance normal, both eyes and all related structures Neck/C-Spine: COMMON NORMALS: full ROM Chest: COMMONS NORMALS: normal inspection of the chest Resp: COMMON NORMALS: normal respiratory effort EFFORT & INSPECTION: Yes able to speak in complete sentences Cardio: COMMON NORMALS: regular rate and regular rhythm RATE: regular rate RHYTHM: regular rhythm GI: COMMON NORMALS: non-tender Back/Pelvis: COMMON NORMALS: thoracic and lumbar spine normal to inspection Extremity: NARRATIVE EXTREMITY EXAM: Redness and mild swelling noted to the dorsal right hand. Some decreased range of motion due to swelling. Distal cap refill is intact. Neuro: COMMON NORMALS: patient oriented x3 and moves all extremities Psych: COMMON NORMALS: mental status grossly normal and cooperative Skin: COMMON NORMALS: no rashes or lesions noted GENERAL SKIN EXAM: no rashes or lesions noted Course Vital Signs: Vital signs: Vital Signs Temperature 98.2 F 05/13/21 00:39 Pulse Rate 83 05/13/21 00:39 Respiratory Rate 18 05/13/21 00:39 Blood Pressure 166/99 05/13/21 00:39 Pulse Oximetry 96 05/13/21 00:39 MDM - Extremity (Nontraumatic) MDM Narrative: Medical decision making narrative: Patient presents with some redness and swelling to the dorsal right hand. The redness and swelling seems to be located around the ring finger MCP joint. Patient has range of motion of the hand with decrease flexion due to swelling. Pulses are intact. Differential diagnosis includes arthritis, cellulitis, contusion. Patient had an x-ray done at a primary care office earlier in the day which showed no fracture. Patient came in tonight due to the cephalexin causing dizziness. We plan to give the patient a dose of ceftriaxone, and then we will continue patient on Augmentin. Patient was also given a dose of Toradol and dexamethasone to help with pain and inflammation. Patient will continue Augmentin at home. And follow-up with primary care for further treatment and instructions. Patient reported understanding. Discharge Plan Discharge Patient Disposition: Home Clinical Impression: Cellulitis of hand Adverse drug effect Qualifiers: Encounter type: initial encounter Qualified Code(s): T50.905A - Adverse effect of unspecified drugs, medicaments and biological substances, initial encounter Condition: Stable Prescriptions: New Augmentin 875-125 mg tablet 1 tab PO BID Qty: 14 RF: 0 diclofenac sodium 75 mg tablet,delayed release (DR/EC) 75 mg PO BID Qty: 14 RF: 0 Discontinued cephalexin 500 mg capsule 500 mg PO TID 7 Days Qty: 21 RF: 0 No Action methylprednisolone [Medrol (Vaibhav)] 4 mg tablets,dose pack See Rx Instructions PO PER PKG DIR Qty: 21 RF: 0 Discharge Orders: Discharge ED (Routine); Ordered 05/13/21 Ordered By: Roberto Sánchez Discharge Diet: Usual diet Discharge Activity: Increase activity as tolerated Patient Instructions: Cellulitis (ED), Opioid Safety Activity Restrictions/Additional Instructions: Take antibiotic as directed. Drink plenty of water with antibiotic. Use medication diclofenac twice a day to help with pain and inflammation. Use acetaminophen, Tylenol, otherwise for other pain relief. Increase activity as tolerated. Follow-up with primary care as needed. Return to the ER for new concerns or worsening symptoms. Coding Level of Care Code ED Senior Environmental Scientist for Nati Pierce
[2021-05-13 02:23] VITALS: BP 166/99; PULSE 83; RESP 20; O2SAT 96
== END 2021-05-13 02:10 | disposition home or self-care (01) ==
PROVIDERS: Emergency Provider Nurse Practitioner Family
DX: L03.113 Cellulitis of right upper limb (principal); T50.905A Adverse effect of unspecified drugs, medicaments and biological substances, initial encounter
CPT/HCPCS: 99282

== ENCOUNTER 2021-05-21 12:46 | Emergency (ER) | payer MEDICARE, MEDICAID, SELFPAY ==
[2021-05-21 13:16] VITALS: BP 183/107; PULSE 75; RESP 16; TEMP 36.7; O2SAT 96; BMI 37.3
--- NOTE | 2021-05-21 13:28 | W.ED.SKABFB ---
HPI - Skin/Abscess/Foreign Bdy General: Chief complaint: Skin/Abscess/Foreign Body Stated complaint: RUE pain/swelling Time Seen by Provider: 05/21/21 12:50 History of Present Illness: HPI narrative: Presents with swelling still present in the right hand has pain with that. Has improved slightly compared to last visit has been his medicine. complaint: other (Right hand cellulitis) Onset (ago): week(s) Tetanus up to date: unsure Location: R hand Severity: mild Severity scale (1-10): 2 Quality: aching Associated symptoms: Reports no associated symptoms; Deny chills, fever(s), nausea or vomiting Review of Systems Const: Denies: fever(s), chills or body aches Eyes: Denies: change in vision or blurry vision ENMT: Denies: throat pain or nasal congestion Card: Denies: chest pain or dyspnea on exertion Resp: Denies: dyspnea, productive cough or non-productive cough GI: Denies: abdominal pain, nausea or vomiting : Denies: difficulty urinating Musc: Reports: extremity pain and extremity swelling Skin/Breast: Denies: rash Neuro: Denies: headache(s) Psych: Denies: anxiety or depression Carlton/Lymph: Denies: easy bruising PFSH ED PFSH: Medical History Bursitis and tendinitis of shoulder region Deaf Deaf, nonspeaking DVT (deep venous thrombosis) Elevated blood pressure reading in office with diagnosis of hypertension Obesity (BMI 35.0-39.9 without comorbidity) Surgical History H/O left knee surgery Social History Smoking and tobacco status: never smoked Physical Exam Const: COMMON NORMALS: no acute distress Extremity: RIGHT UPPER EXTREMITY: Yes hand & digits (Mild swelling above #4 digit tender to the touch has good range of motion) Right hand and digits: Yes neurovascular exam ( neurovascular intact hand is warm) Psych: COMMON NORMALS: mental status grossly normal Course Vital Signs: Vital signs: Vital Signs Temperature 98.5 F 05/21/21 13:57 Pulse Rate 72 05/21/21 13:57 Respiratory Rate 18 05/21/21 13:57 Blood Pressure 152/90 05/21/21 13:57 Pulse Oximetry 99 05/21/21 13:57 MDM - Skin/Abscess/Foreign Bdy MDM Narrative: Medical decision making narrative: Patient's hand did not look bad although no real erythema does have swelling compared to the right but patient is in pain and said he did not feel it is improving. Patient has not been febrile. Discharge Plan Discharge Patient Disposition: Home Clinical Impression: Cellulitis Qualifiers: Site of cellulitis: extremity Site of cellulitis of extremity: upper extremity Laterality: right Qualified Code(s): L03.113 - Cellulitis of right upper limb Condition: Stable Prescriptions: New Bactrim DS 800-160 mg tablet 1 tab PO BID 7 Days Qty: 14 RF: 0 tramadol 50 mg tablet 50 mg PO TID PRN (Reason: pain) Qty: 7 RF: 0 No Action methylprednisolone [Medrol (Vaibhav)] 4 mg tablets,dose pack See Rx Instructions PO PER PKG DIR Qty: 21 RF: 0 Augmentin 875-125 mg tablet 1 tab PO BID Qty: 14 RF: 0 diclofenac sodium 75 mg tablet,delayed release (DR/EC) 75 mg PO BID Qty: 14 RF: 0 Discharge Orders: Discharge ED (Routine); Ordered 05/21/21 Ordered By: Carl Escalera Discharge Diet: Usual diet Discharge Activity: Resume usual activity Patient Instructions: Opioid Safety Activity Restrictions/Additional Instructions: Follow-up with medical provider as directed. Take medications as prescribed. Return to the ER or your medical provider if condition worsens. Please read and understand discharge instructions. If any questions ask please. Follow-up primary care provider in the next week. Coding Level of Care Code ED Manager Quality Compliance for Nati Fwd Exam Expanded Problem Focused
[2021-05-21] MEDS: cefTRIAXone 1,000 MG in lidocaine 1% 2.1 ML 3 MG IM (13:43)
[2021-05-21 13:48] VITALS: PULSE 74; RESP 16; O2SAT 98
[2021-05-21 13:57] VITALS: BP 152/90; PULSE 72; RESP 18; TEMP 36.9; O2SAT 99
== END 2021-05-21 14:02 | disposition home or self-care (01) ==
PROVIDERS: Emergency Provider Nurse Practitioner Family
DX: L03.113 Cellulitis of right upper limb (principal)
CPT/HCPCS: 96372; 99283; J0696

== ENCOUNTER 2021-06-23 06:35 | Outpatient (CLI) | payer MEDICARE, MEDICAID, SELFPAY ==
--- NOTE | 2021-06-23 06:51 | US_ITS ---
WS: [id number] INDICATION: Lump right hand TECHNIQUE: Ultrasound right fourth metacarpal head FINDINGS: Ultrasound area of concern right fourth metacarpal head. In the area of concern, there is a hypoechoic subcutaneous lesion measuring 2.3 x 0.6 x 2.2 cm. Small amount of peripheral vascularity. This has a nonspecific appearance and is not cystic or drainable. This can be further evaluated with MRI without and with gadolinium enhancement for better anatomic detail. US/US soft tissue/extremity [id number] IMPRESSION: 1. In the area of concern, there is a hypoechoic subcutaneous lesion measuring 2.3 x 0.6 x 2.2 CM. This has a nonspecific appearance on ultrasound and could be further evaluated with MRI without and with gadolinium for better anatomic detail. Some differential considerations include lipoma, fibroma, giant cell tu mor of tendon sheath, and nerve sheath lesions. 2. No drainable fluid collections.
== END 2021-06-23 06:36 | disposition home or self-care (01) ==
PROVIDERS: Visit Provider Nurse Practitioner Family
DX: R22.9 Localized swelling, mass and lump, unspecified (principal)
CPT/HCPCS: 76882

== ENCOUNTER 2021-08-18 17:43 | Emergency (ER) | payer MEDICARE, MEDICAID, SELFPAY ==
[2021-08-18 17:51] VITALS: BP 152/101; PULSE 87; RESP 18; TEMP 35.9; O2SAT 98; BMI 37.7
--- NOTE | 2021-08-18 18:04 | CTR_ITS ---
PROCEDURE INFORMATION: Exam: CT Abdomen And Pelvis Without Contrast Exam date and time: 08/18/2021 6:04 PM Age: 41 years old Clinical indication: Abdominal pain; Left; Patient HX: New onset L flank pain; Additional info: Left flank pain, sudden onset, PT is deaf TECHNIQUE: Imaging protocol: Computed tomography of the abdomen and pelvis without contrast. Radiation optimization: All CT scans at this facility use at least one of these dose optimization techniques: automated exposure control; mA and/or kV adjustment per patient size (includes targeted exams where dose is matched to clinical indication); or iterative reconstruction. COMPARISON: US soft tissue/extremity [id number] 06/23/2021 7:08 AM RADIATION DOSE METRICS: Total DLP (mGy-cm): 2031.27 FINDINGS: Lungs: Lung bases are clear. Liver: The liver is normal. Gallbladder and bile ducts: The gallbladder is decompressed, preventing meaningful evaluation of wall thickness. Pancreas: Normal. No ductal dilation. Spleen: The spleen is unremarkable. Adrenal glands: The adrenal glands are unremarkable. Kidneys and ureters: There is a 2 mm obstructive stone in the distal left ureter at the ureterovesical junction. There is mild left hydronephrosis. There is a nonobstructive intrarenal stone in the left lower pole collecting system. There is a nonobstructive stone in the right kidney. There is no hydronephrosis or ureteral dilation on the right. Stomach and bowel: The stomach is unremarkable. The small bowel is nondilated. The colon is unremarkable. Appendix: The appendix is normal. Intraperitoneal space: There is no free air or significant intraperitoneal free fluid. Vasculature: The aorta is unremarkable. There is no aneurysm. Lymph nodes: There is no lymphadenopathy in the retroperitoneum, mesentery, pelvis or inguinal regions. Urinary bladder: The urinary bladder is unremarkable. Reproductive: The prostate and seminal vesicles are unremarkable. Bones/joints: There is mild degenerative disease in the lumbar spine. The pelvis and proximal femora are intact. Soft tissues: The abdominal wall is intact. CT/CT kidney stone [id number] IMPRESSION: 1. 2 mm obstructive stone at the left ureterovesical junction producing mild hydronephrosis. 2. Bilateral nonobstructive nephrolithiasis. Radiation Dose CTDIVOL = (mGy): DLP = 2.27 (mGy-cm)
--- NOTE | 2021-08-18 18:06 | ED_ITS ---
HPI - General Adult General: Chief complaint: General Medical Stated complaint: POSS KIDNEY STONE Time Seen by Provider: 08/18/21 17:49 History of Present Illness: HPI narrative: Mr. Shankar presents here with left flank pain sudden onset about 1700 this afternoon with difficulty voiding since then. Denies any other health problems presently patient is deaf and does communicate through written language. MD complaint: Left flank pain Onset (ago): hour(s) Location: abdomen Severity: moderate Severity scale (1-10): 5 Quality: aching Pain Consistency: constant Relieving factors: none Exacerbating factors: none Associated symptoms: Reports nausea; Deny chest pain, headache(s) or rash Treatments prior to arrival: none Review of Systems Const: Denies: fever(s), chills or body aches Eyes: Denies: eye discharge ENMT: Reports: other (Patient is deaf); Denies: throat pain, oral sores or nasal congestion Card: Denies: chest pain or dyspnea on exertion Resp: Reports: non-productive cough; Denies: wheezing or stridor GI: Reports: nausea : Reports: flank pain (Left side started at 1700 today) and difficulty urinating Musc: Denies: back pain Skin/Breast: Denies: rash Neuro: Denies: headache(s) Psych: Denies: anxiety or depression Carlton/Lymph: Denies: easy bruising PFSH ED PFSH: Medical History Bursitis and tendinitis of shoulder region Deaf Deaf, nonspeaking DVT (deep venous thrombosis) Elevated blood pressure reading in office with diagnosis of hypertension Obesity (BMI 35.0-39.9 without comorbidity) Surgical History H/O left knee surgery Social History Smoking and tobacco status: never smoked Physical Exam Narrative: EXAM NARRATIVE: Patient is bending over table classic kidney stone posterior. Appears uncomfortable. Const: COMMON NORMALS: no acute distress, average body habitus and patient oriented x3 GENERAL APPEARANCE: cooperative HENMT: COMMON NORMALS: normocephalic, external ears normal, EAC's normal, TM's normal bilaterally and Normal external nose present HEAD & SCALP: normal to inspection and normocephalic FACE & SINUS: normal facial exam NOSE: Normal external nose present and No nasal discharge present EXTERNAL EAR: Yes external ears normal EXTERNAL AUDITORY CANAL: EAC's normal TYMPANIC MEMBRANE: TM's normal bilaterally MOUTH: Normal oral and palatal mucosa present THROAT: posterior oropharynx normal Eye: COMMON NORMALS: conjunctivae normal GENERAL EYE: appearance normal, b oth eyes and all related structures CONJUNCTIVA: Yes conjunctivae normal Neck/C-Spine: COMMON NORMALS: no JVD Lymph: LYMPHATIC: no lymphadenopathy noted Chest: COMMONS NORMALS: normal inspection of the chest Resp: COMMON NORMALS: normal respiratory effort, No retractions, No use of accessory muscles and clear to auscultation bilaterally AUSCULTATION: clear to auscultation bilaterally Cardio: COMMON NORMALS: no JVD, regular rate and regular rhythm RATE: regular rate RHYTHM: regular rhythm GI: COMMON NORMALS: Normal to inspection, nondistended, normoactive bowel sounds present : BLADDER/KIDNEY EXAM: Yes CVA tenderness (Radiates to groin) on the left Back/Pelvis: GENERAL BACK: Yes CVA tenderness (Radiates to groin) Extremity: COMMON NORMALS: normal to inspection Neuro: COMMON NORMALS: patient oriented x3 Skin: COMMON NORMALS: no rashes or lesions noted GENERAL SKIN EXAM: no rashes or lesions noted Course Vital Signs: Vital signs: Vital Signs Temperature 96.7 F L 08/18/21 17:51 Pulse Rate 87 08/18/21 17:51 Respiratory Rate 18 08/18/21 17:51 Blood Pressure 152/101 08/18/21 17:51 Pulse Oximetry 98 08/18/21 17:51 Coding Level of Care Code ED Sheetmetal Patternmaker for Nati Pierce
[2021-08-18 18:25] LABS: Basophils % 0.4 %; Eosinophils # 0.3 10^3/uL (0.0-0.8); Eosinophils % 2.2 %; Hematocrit 44.2 % (42.0-52.0); Hemoglobin 15.1 g/dL (11.7-16.6); Lymphocytes # 2.7 10^3/uL (0.8-4.8); Lymphocytes % 23.7 %; Mean Corpuscular HGB Conc 34.2 g/dL (30.0-36.0); Mean Platelet Volume 9.4 fL (7.4-10.4); Monocytes % 8.7 %; Neutrophils # 7.33 10^3/uL (1.8-7.7); Neutrophils % 64.6 %; Nucleated Red Blood Cells % 0 %; Platelet Count 329 10^3/cmm (130-400); Red Cell Distribution Width 12.2 % (12.1-15.1); White Blood Count 11.3 10^3/uL (4.0-10.0)
[2021-08-18] MEDS: sodium chloride 0.9% 1,000 ML 999 ML IV (18:30)
[2021-08-18] MEDS: ketorolac 30 mg/mL INJ IVP (18:30)
[2021-08-18] MEDS: ondansetron 2 mg/ML SDV 2 mL 4 MG IVP (18:30)
[2021-08-18 18:43] VITALS: BP 124/97; PULSE 88; RESP 12; TEMP 36.6; O2SAT 100
[2021-08-18 18:51] LABS: Alanine Aminotransferase 21 U/L (0-41); Albumin Level 4.6 g/dL (3.5-5.2); Alkaline Phosphatase 112 IU/L (40-130); Anion Gap 15.8 (5-19); Aspartate Amino Transferase 15 U/L (0-40); Blood Urea Nitrogen 14 mg/dL (6-20); Calcium 9.1 mg/dL (8.5-10.5); Carbon Dioxide 25 mmol/L (22-29); Chloride 101 mmol/L (98-107); Globulin 2.9 g/dL (1.3-4.6); Glomerular Filtration Rate 93.9 mL/min (90-130); Glucose 96 mg/dL (65-115); Lipase 18 U/L (13-60); Osmolality Calculated 286 mOsm/kg (285-295); Potassium 3.8 mmol/L (3.5-5.1); Sodium 138 mmol/L (136-145); Total Bilirubin 0.4 mg/dL (0.15-1.2); Total Protein 7.5 g/dL (6.6-8.7)
[2021-08-18 19:00] LABS: Add Urine Microscopic? YES; Bilirubin Urine Neg (Negative); Blood Urine 3+ (Negative); Glucose Urine UA Norm (Normal); Ketones Urine 1+ (Negative); Leukocyte Esterase Urine Negative (Negative); Nitrate Urine Negative (Negative); Protein Urine 1+ (Negative); Specific Gravity, Urine 1.025 (1.005-1.030); Urine Appearance SL Hazy (CLEAR); Urine Color Yellow (Yellow); Urobilinogen Urine Norm (Negative); pH Urine 5 (5-7)
[2021-08-18 19:01] LABS: Add Urine Culture? Yes; Bacteria Urine TRACE /hpf; Calcium Oxalate Crystals Urine 0-4 /hpf; Mucus Urine 2+ /hpf; RBC Urine 25-40 /hpf (0-2); Squamous Epithelial Cell Urine 0-4 /hpf (0-5); WBC Urine 0-4 /hpf (0-5)
[2021-08-18] MEDS: HYDROcodone-acetaminophen 7.5-325 mg Tablet 2 TAB PO (20:29)
[2021-08-18] MEDS: tamsulosin 0.4 mg Capsule 0.8 MG PO (20:29)
--- NOTE | 2021-08-21 14:15 | DCPLANNER ---
terminal operations manager had message to schedule a follow up appointment for patient with Dr. Trivedi. terminal operations manager called the office of Dr. Trivedi, spoke with Shashi, gave clinic patients information. terminal operations manager was told that patients information would be printed and reviewed. Clinic will call patient with appointment information.
--- NOTE | 2021-08-25 08:48 | DCPLANNER ---
Patient had a follow up appointment scheduled for 08.23.[address] Trivedi - patient did attend appointment.
== END 2021-08-18 21:03 | disposition home or self-care (01) ==
PROVIDERS: Emergency Provider Nurse Practitioner Family
DX: R10.9 Unspecified abdominal pain (principal)
CPT/HCPCS: 74176; 80053; 81001; 83690; 85025; 87086; 96361; 96374; 96375; 99284; J1885; J2405; J7030

== ENCOUNTER 2021-08-22 09:57 | Emergency (ER) | payer MEDICARE, MEDICAID, SELFPAY ==
[2021-08-22 10:06] VITALS: BP 133/87; PULSE 79; RESP 16; TEMP 36.7; O2SAT 96; BMI 37.7
--- NOTE | 2021-08-22 10:49 | W.ED.MALEGU ---
HPI - Male Genitourinary General: Chief complaint: Urogenital-Male Stated complaint: Lower Back Pain, Kidney Time Seen by Provider: 08/22/21 09:59 History of Present Illness: HPI Narrative: 41-year-old male who presents to the emergency room with a renal stone. He was seen several days ago here in the emergency room discharged home with Zofran tamsulosin one hydrocodone and ketorolac he states he had a little bit of relief from the ketorolac but not from the hydrocodone. He still having flank pain. No fevers no vomiting or diarrhea reported. Patient is unable to speak or hear all communication done written. Onset (ago): day(s) Duration: constant Location: left flank Severity: moderate Quality: sharp Relieving factors: none Exacerbating factors: none Associated symptoms: Reports hematuria; Deny dysuria, fevers/chills, nausea or vomiting Review of Systems GI: Denies: nausea or vomiting : Reports: hematuria; Denies: dysuria [facility] ED PFSH: Medical History Bursitis and tendinitis of shoulder region Deaf Deaf, nonspeaking DVT (deep venous thrombosis) Elevated blood pressure reading in office with diagnosis of hypertension Obesity (BMI 35.0-39.9 without comorbidity) Surgical History H/O left knee surgery Social History Smoking and tobacco status: never smoked Physical Exam Const: COMMON NORMALS: no acute distress GENERAL APPEARANCE: cooperative and comfortable HENMT: COMMON NORMALS: normocephalic and atraumatic HEAD & SCALP: normocephalic and atraumatic Neck/C-Spine: COMMON NORMALS: no JVD Resp: COMMON NORMALS: normal respiratory effort, No retractions, No use of accessory muscles and clear to auscultation bilaterally AUSCULTATION: clear to auscultation bilaterally Cardio: COMMON NORMALS: no JVD, regular rate, regular rhythm and No murmurs present (Cardio) RATE: regular rate RHYTHM: regular rhythm : BLADDER/KIDNEY EXAM: Yes CVA tenderness Back/Pelvis: GENERAL BACK: Yes CVA tenderness CVA tenderness: left (Mild) Extremity: COMMON NORMALS: normal to inspection, capillary refill normal, no clubbing, cyanosis or edema, no calf tenderness and no pedal edema Skin: COMMON NORMALS: no rashes or lesions noted GENERAL SKIN EXAM: no rashes or lesions noted Course Vital Signs: Vital signs: Vital Signs Temperature 98.1 F 08/22/21 10:06 Pulse Rate 79 08/22/21 10:06 Respiratory Rate 16 08/22/21 10:06 Blood Pressure 133/87 08/22/21 10:06 Pulse Oximetry 96 08/22/21 10:06 Discharge Plan Discharge Prescriptions: No Action hydrocodone-acetaminophen 5-325 mg tablet 1 tab PO TID PRN (Reason: pain) Qty: 14 RF: 0 ibuprofen 800 mg tablet 800 mg PO Q8H PRN (Reason: Pain) RF: 0 ondansetron HCl 4 mg tablet 4 mg PO Q8H PRN (Reason: Nausea And Vomiting) RF: 0 ketorolac 10 mg tablet 10 mg PO Q8H PRN (Reason: Pain) RF: 0 simvastatin 20 mg tablet 20 mg PO DAILY RF: 0 lisinopril 10 mg tablet 10 mg PO DAILY RF: 0 Flomax 0.4 mg capsule 0.4 mg PO DAILY RF: 0 Coding Level of Care Code ED Informatica Developer for Nati Pierce
[2021-08-22] MEDS: sodium chloride 0.9% 1,000 ML 999 ML IV (11:10)
[2021-08-22] MEDS: ondansetron 2 mg/ML SDV 2 mL 4 MG IVP (11:11)
[2021-08-22 11:12] VITALS: RESP 18; O2SAT 98
[2021-08-22] MEDS: morphine 4 mg/mL SDV 1 mL 6 MG IVP (11:12)
--- NOTE | 2021-08-22 11:12 | PC.PHAR ---
PT AND PTS FAMILY IS DEF SO THEY WROTE OUT SOME OF THE MEDICATIONS THE PT TAKES-WROTE THE PT IS OUT OF THE MEDICATION THAT STARTS WITH K KETOROLAC 10MG Q8H PRN FILLED ON 08/19/21 2D/S-MEDICATIONS ENTERED ARE SOME OF THE MEDS THE PT AND FAMILY VERIFIED AND WHAT SHOWS ON EXT MED HISTORY HAS BEEN FILLED
[2021-08-22 11:19] LABS: Basophils # 0.1 10^3/uL (0.0-0.1); Basophils % 0.6 %; Eosinophils # 0.3 10^3/uL (0.0-0.8); Eosinophils % 3.4 %; Hematocrit 41.4 % (42.0-52.0); Hemoglobin 13.7 g/dL (11.7-16.6); Lymphocytes # 1.7 10^3/uL (0.8-4.8); Lymphocytes % 19.7 %; Mean Corpuscular HGB Conc 33.1 g/dL (30.0-36.0); Mean Corpuscular Hemoglobin 28.6 pg (28.0-34.0); Mean Corpuscular Volume 86.4 fl (80-94); Mean Platelet Volume 9.2 fL (7.4-10.4); Monocytes # 0.6 10^3/uL (0.2-0.9); Monocytes % 6.4 %; Neutrophils # 6.12 10^3/uL (1.8-7.7); Neutrophils % 69.7 %; Nucleated Red Blood Cells % 0 %; Platelet Count 292 10^3/cmm (130-400); Red Blood Count 4.79 10^6/uL (4.1-5.3); Red Cell Distribution Width 12.1 % (12.1-15.1); White Blood Count 8.8 10^3/uL (4.0-10.0)
[2021-08-22 11:42] LABS: Anion Gap 13.1 (5-19); Blood Urea Nitrogen 15 mg/dL (6-20); Calcium 9.3 mg/dL (8.5-10.5); Carbon Dioxide 28 mmol/L (22-29); Chloride 100 mmol/L (98-107); Glomerular Filtration Rate 93.9 mL/min (90-130); Glucose 88 mg/dL (65-115); Osmolality Calculated 284 mOsm/kg (285-295); Potassium 4.1 mmol/L (3.5-5.1); Sodium 137 mmol/L (136-145)
[2021-08-22 12:28] LABS: Urine Appearance Clear (CLEAR); Urine Color Yellow (Yellow)
[2021-08-22 12:29] LABS: Bilirubin Urine Neg (Negative); Blood Urine 3+ (Negative); Glucose Urine UA Norm (Normal); Ketones Urine Negative (Negative); Leukocyte Esterase Urine Negative (Negative); Nitrate Urine Negative (Negative); Protein Urine Neg (Negative); Urobilinogen Urine Norm (Negative); pH Urine 5 (5-7)
[2021-08-22 12:30] LABS: Add Urine Culture? No; Add Urine Microscopic? YES; Bacteria Urine TRACE /hpf; Mucus Urine TRACE /hpf; Squamous Epithelial Cell Urine 0-4 /hpf (0-5); WBC Urine 0-4 /hpf (0-5)
== END 2021-08-22 12:40 | disposition home or self-care (01) ==
PROVIDERS: Emergency Provider Family Medicine; PCP Urology
DX: M54.5 Low back pain (principal)
CPT/HCPCS: 80048; 81001; 85025; 96361; 96374; 96375; 99284; J2270; J2405; J7030

== ENCOUNTER 2021-08-23 12:50 | Outpatient (CLI) | payer MEDICARE, MEDICAID, SELFPAY ==
--- NOTE | 2021-08-23 13:01 | XR_ITS ---
WS: [id number] Exam: XR KUB [id number] Date/Time of Exam: 08/23/2021 1:03 PM Reason For Exam: KIDNEY STONE No bowel obstruction or free air. Tiny calcification superimpose the left kidney and may represent re nal stones. No sign of organ enlargement. Regional bony elements are intact. XR/XR KUB [id number] IMPRESSION: 1. No acute abdominal finding. 2. Tiny calcification superimpose the lower pole the left kidney and may repres ent tiny renal stones.
== END 2021-08-23 12:51 | disposition home or self-care (01) ==
PROVIDERS: PCP Urology; Visit Provider Urology
DX: N20.0 Calculus of kidney (principal)
CPT/HCPCS: 74018; 81003

== ENCOUNTER 2021-09-01 09:00 | Outpatient (CLI) | payer MEDICARE, MEDICAID, SELFPAY ==
--- NOTE | 2021-09-01 09:00 | XR_ITS ---
WS: [id number] XR KUB [id number] REASON FOR EXAM: RENAL AND URETERAL STONE FINDINGS: Cannot identify previously demonstrated by CT 08/18/2021 less than 2 mm calculus in the right kidney. 2 to 3 mm calculus overlying the lower pole of the left kidney congruent with previous CT scan. 2 mm calcific density seen in the left pelvis adjacent to 2 phleboliths. No change from the previous examination of 08/23/2021. No other significant abdominal abnormality. XR/XR KUB [id number] IMPRESSION: Equivocal identification of previously CT demonstrated calculus at the left ure teral vesicle junction.
== END 2021-09-01 09:01 | disposition home or self-care (01) ==
LOC: RAD 09:01
PROVIDERS: PCP Urology; Visit Provider Urology
DX: N20.2 Calculus of kidney with calculus of ureter (principal)
CPT/HCPCS: 74018; 81003

== ENCOUNTER 2022-03-23 08:19 | Emergency (ER) | payer MEDICARE, MEDICAID, SELFPAY ==
[2022-03-23 08:32] VITALS: BP 151/111; PULSE 69; RESP 14; O2SAT 96; BMI 36.6
[2022-03-23 08:43] VITALS: BP 151/111; PULSE 90; RESP 18; O2SAT 100
--- NOTE | 2022-03-23 08:44 | XRR_ITS ---
PROCEDURE INFORMATION: Exam: XR Left Knee Exam date and time: 03/23/2022 8:49 AM Age: 42 years old Clinical indication: Left; Prior surgery; Patient HX: PT is deaf and i could not get history from him. Order states PT is having lt knee pain and has HX of surgery; Additional info: Pain, HX of surgery, PT is deaf TECHNIQUE: Imaging protocol: XR Left knee. Views: 3 views. COMPARISON: CR Knee 3 views, LEFT* [id number] 10/30/2017 11:59 AM FINDINGS: Bones/joints: Normal. Soft tissues: Normal. XR/XR knee LT 3V* [id number] IMPRESSION: No acute findings.
--- NOTE | 2022-03-23 08:45 | ED_ITS ---
HPI - Extremity Problem General: Chief complaint: Extremity Injury, Lower Stated complaint: left knee pain Time Seen by Provider: 03/23/22 08:37 History of Present Illness: Patient states ongoing worsening pain in his left knee. He has a history of surgery and had some arthroscopic work done on it. Patient complains about pain that radiates from the medial aspect over to the lateral aspect almost right below the kneecap. Denies any recent injury. Patient is deaf and I communicated with him and his significant other through written communication. Associated symptoms: Deny fever(s) or rash Review of Systems Const: Denies: fever(s) GI: Denies: abdominal pain Musc: Reports: joint pain (Left knee has been getting worse over the last few months); Denies: back pain or limited range of motion Skin/Breast: Denies: rash Psych: Denies: depression or suicidal ideation PFSH ED PFSH: Medical History Bilateral renal stones Bursitis and tendinitis of shoulder region Deaf Deaf, nonspeaking DVT (deep venous thrombosis) Elevated blood pressure reading in office with diagnosis of hypertension Left ureteral stone Obesity (BMI 35.0-39.9 without comorbidity) Surgical History H/O left knee surgery Social History Alcohol intake: never Marital status: Single Current occupational status: employed Physical Exam Const: COMMON NORMALS: no acute distress Resp: COMMON NORMALS: normal respiratory effort Cardio: COMMON NORMALS: regular rate and regular rhythm RATE: regular rate RHYTHM: regular rhythm Extremity: LEFT LOWER EXTREMITY: Yes knee joint Left knee: Yes inspection (Normal), Yes ROM (Full), Yes neurovascular exam (Intact) and Yes special tests (Hypertension test was positive for pain) Left knee special tests: Maryjo test: Negative, Anterior drawer sign: Negative and Anterior Jovita test: Negative Course Vital Signs: Vital signs: Vital Signs Pulse Rate 86 03/23/22 09:16 Respiratory Rate 18 03/23/22 08:43 Blood Pressure 148/90 03/23/22 09:16 Pulse Oximetry 100 03/23/22 09:16 MDM - Extremity (Nontraumatic) Medical Decision Making Knee abrasions and contusion from fall. Lab Data Radiology Impressions Knee X-Ray 03/23/22 08:44 IMPRESSION: No acute findings. Discharge Plan Discharge Patient Disposition: Home Clinical Impression: Chronic knee pain Qualifiers: Laterality: left Qualified Code(s): M25.562 - Pain in left knee Condition: Stable Prescriptions: New Voltaren Arthritis Pain 1 % gel 4 g topical QID Qty: 100 0RF No Action hydrocodone-acetaminophen 5-325 mg tablet 1 tab PO TID PRN (Reason: pain) Qty: 14 0RF simvastatin 20 mg tablet 20 mg PO QPM 0RF Discharge Orders: Discharge ED (Routine); Ordered 03/23/22 Ordered By: Carl Escalera Discharge Diet: Usual diet Discharge Activity: Increase activity as tolerated Patient Instructions: Meniscus Tear (ED) Activity Restrictions/Additional Instructions: Follow-up with medical provider as directed. Take medications as prescribed. Return to the ER or your medical provider if condition worsens. Please read and understand discharge instructions. If any questions ask please. Hands knee brace. Follow-up with orthopedic as scheduled Hospital will contact you with appointment. Stand Alone Forms: Work/School Release Coding Level of Care Code ED Artist And Repertoire Manager for Courtg Fwd Exam Expanded Problem Focused
--- NOTE | 2022-03-23 08:54 | PC.NURSE ---
PT AND ARE DEAF. COMMUNICATION WITH NURSE AND PROVIDER DONE THROUGH WRITTEN COMMUNICATION.
--- NOTE | 2022-03-23 08:56 | PC.PHAR ---
PTS WROTE OUT THAT THE PT ONLY TAKES SIMVASTATIN DAILY-PTS WROTE THE PT TOOK HIS LAST NORCO 5/325MG TABS LAST NIGHT EXT MED HISTORY SHOWS LAST FILLED 08/19/21 4D/S
[2022-03-23 09:16] VITALS: BP 148/90; PULSE 86; O2SAT 100
--- NOTE | 2022-03-23 10:38 | DCPLANNER ---
Addendum entered by Makenzie Richard 03/28/22 19:37: Patient had a follow up appointment scheduled with ortho - patient did attend appointment. Addendum entered by Makenzie Richard 03/27/22 06:59: Patient has a follow up appointment scheduled for Sunday, March 27, 2022 at 3:15 with Sandeep Winters at ortho. Clinic will call patient with appointment information. Original Note: airline managerial supervisor had message to schedule a follow up appointment for patient with ortho. airline managerial supervisor sent patients information to the front office staff at ortho. Patients information will be printed and reviewed. Clinic will call patient with appointment information.
== END 2022-03-23 09:18 | disposition home or self-care (01) ==
PROVIDERS: Emergency Provider Nurse Practitioner Family
DX: M25.562 Pain in left knee (principal); G89.29 Other chronic pain; H91.90 Unspecified hearing loss, unspecified ear; I10 Essential (primary) hypertension
CPT/HCPCS: 73562; 99282

== ENCOUNTER → 2022-03-27 14:48 | Outpatient (BNVA) | payer MEDICARE, MEDICAID, SELFPAY | PROVIDERS: Referring Provider Nurse Practitioner Family; Visit Provider Physician Assistant | DX: M25.562 Pain in left knee (principal) | CPT/HCPCS: 99203; 99999 ==

== ENCOUNTER 2022-09-30 11:48 | Emergency (ER) | payer MEDICARE, MEDICAID, SELFPAY ==
[2022-09-30 11:56] VITALS: BP 146/90; PULSE 77; RESP 14; TEMP 36.8; O2SAT 97; BMI 37.0
--- NOTE | 2022-09-30 12:40 | ED_ITS ---
HPI - Abdominal Pain General: Chief Complaint: Abdominal Pain Stated Complaint: Pain Time Seen by Provider: 09/30/22 12:05 History of Present Illness: 42-year-old male presents with left lower quadrant abdominal pain. He reports it started yesterday. Patient denies any other associated complaints. He denies nausea, vomiting, urinary symptoms, fever, chills, flank pain. Patient does have a history of kidney stones. Patient is deaf and his son was signing for him so HPI may be incomplete and limited Associated Symptoms: Denies chills, constipation, dysuria, fever(s), nausea and vomiting Review of Systems Const: Denies: fever(s) or chills Card: Denies: chest pain or palpitations Resp: Denies: dyspnea or productive cough GI: Reports: abdominal pain; Denies: nausea, vomiting or constipation : Denies: flank pain, difficulty urinating or dysuria Musc: Denies: back pain Skin/Breast: Denies: rash Neuro: Denies: headache(s) or dizziness [facility] ED PFSH: Medical History (Updated 08/21/22 @ 09:28 by Kirit Martino MD) Bilateral renal stones Bursitis and tendinitis of shoulder region Deaf Deaf, nonspeaking DVT (deep venous thrombosis) Elevated blood pressure reading in office with diagnosis of hypertension Left ureteral stone Obesity (BMI 35.0-39.9 without comorbidity) Osteoarthritis of left hip Urolithiasis Multistone former. Spontaneously passed 2mm stone 2020. Additional bilateral small calculi Stone risk reduction strategies employed. Surgical History H/O left knee surgery Social History Smoking and tobacco status: never smoked Alcohol intake: never Marital status: Single Current occupational status: employed Physical Exam Const: COMMON NORMALS: no acute distress, average body habitus, patient orient ed x3 and healthy appearing HENMT: GENERAL EAR: hearing grossly impaired Eye: COMMON NORMALS: Equal, round and reactive pupils present and EOMs intact bilaterally PUPIL: Yes Equal, round and reactive pupils present Resp: COMMON NORMALS: normal respiratory effort, No use of accessory muscles and clear to auscultation bilaterally AUSCULTATION: clear to auscultation bilaterally Cardio: COMMON NORMALS: regular rate and regular rhythm RATE: regular rate RHYTHM: regular rhythm GI: COMMON NORMALS: Soft to palpation PALPATION: Yes Soft to palpation and Yes Tenderness to palpation present (GI) Details: LUQ : COMMON NORMALS: Yes no CVA tenderness BLADDER/KIDNEY EXAM: Yes no CVA tenderness Back/Pelvis: COMMON NORMALS: no CVA tenderness Extremity: COMMON NORMALS: normal to inspection and capillary refill normal Neuro: COMMON NORMALS: patient oriented x3, moves all extremities and no focal motor deficits Psych: COMMON NORMALS: mental status grossly normal, Normal thought process present and cooperative THOUGHT PROCESS: Normal thought process present Skin: COMMON NORMALS: no rashes or lesions noted and turgor normal GENERAL SKIN EXAM: no rashes or lesions noted and turgor normal Course Vital Signs: Vital signs: Vital Signs Temperature 98.2 F 09/30/22 11:56 Pulse Rate 77 09/30/22 11:56 Respiratory Rate 14 09/30/22 11:56 Blood Pressure 146/90 09/30/22 11:56 Pulse Oximetry 97 09/30/22 11:56 Oxygen Delivery Me thod 09/30/22 11:56 MDM - Abdominal Pain Medical Decision Making Patient with negative CT abdomen pelvis along with negative labs. I will prescribe him Bentyl since he states he still having some discomfort and Tylenol has not helped. I also recommended he try ibuprofen. He should follow-up with his primary care provider in 3 to 4 days if symptoms or not improving. Lab Data : 09/30/22 13:50 09/30/22 13:50 Labs/Radiology: Radiology Impressions Abdomen/Pelvis CT 09/30/22 14:29 IMPRESSION: There are no acute concerning abnormalities. Laboratory Results WBC 10.2 10^3/uL (4.0-10.0) H 09/30/22 13:50 Corrected WBC Cancelled 09/30/22 12:35 RBC 5.17 10^6/uL (4.1-5.3) 09/30/22 13:50 Hgb 14.7 g/dL (11.7-16.6) 09/30/22 13:50 Hct 43.6 % (42.0-52.0) 09/30/22 13:50 MCV 84.3 fl (80-94) 09/30/22 13:50 MCH 28.4 pg (28.0-34.0) 09/30/22 13:50 MCHC 33.7 g/dL (30.0-36.0) 09/30/22 13:50 RDW 12.2 % (12.1-15.1) 09/30/22 13:50 Plt Count 279 10^3/cmm (130-400) 09/30/22 13:50 MPV 9.8 fL (7.4-10.4) 09/30/22 13:50 Gran % Cancelled 09/30/22 12:35 Neut % (Auto) 68.5 % 09/30/22 13:50 Lymph % (Auto) 20.1 % 09/30/22 13:50 Carlton % (Auto) 7.4 % 09/30/22 13:50 Eos % (Auto) 3.0 % 09/30/22 13:50 Baso % (Auto) 0.6 % 09/30/22 13:50 Neut # (Auto) 6.97 10^3/uL (1.8-7.7) 09/30/22 13:50 Lymph # (Auto) 2.0 10^3/uL (0.8-4.8) 09/30/22 13:50 Carlton # (Auto) 0.8 10^3/uL (0.2-0.9) 09/30/22 13:50 Eos # (Auto) 0.3 10^3/uL (0.0-0.8) 09/30/22 13:50 Baso # (Auto) 0.1 10^3/uL (0.0-0.1) 09/30/22 13:50 Absolute Gran (auto) Cancelled 09/30/22 12:35 Nucleated RBC % (auto) 0 % 09/30/22 13:50 Nucleated RBCs # 0.0 /100WBC 09/30/22 13:50 Sodium 137 mmol/L (136-145) 09/30/22 13:50 Potassium 3.8 mmol/L (3.5-5.1) 09/30/22 13:50 Chloride 98 mmol/L (98-107) 09/30/22 13:50 Carbon Dioxide 25 mmol/L (22-29) 09/30/22 13:50 Anion Gap 17.8 (5-19) 09/30/22 13:50 BUN 16 mg/dL (6-20) 09/30/22 13:50 Creatinine 1.0 mg/dL (0.7-1.2) 09/30/22 13:50 GFR Calculation 82.8 mL/min (90-130) L 09/30/22 13:50 Glucose 136 mg/dL (65-115) H 09/30/22 13:50 Calculated Osmolality 287 mOsm/kg (285-295) 09/30/22 13:50 Calcium 9.4 mg/dL (8.5-10.5) 09/30/22 13:50 Total Bilirubin 0.6 mg/dL (0.15-1.2) 09/30/22 13:50 AST 15 U/L (0-40) 09/30/22 13:50 ALT 21 U/L (0-41) 09/30/22 13:50 Alkaline Phosphatase 107 U/L (40-130) 09/30/22 13:50 C-Reactive Protein 5.3 mg/L (0.0-4.9) H 09/30/22 13:50 Total Protein 6.6 g/dL (6.6-8.7) 09/30/22 13:50 Albumin 4.4 g/dL (3.5-5.2) 09/30/22 13:50 Globulin 2.2 g/dL (1.3-4.6) 09/30/22 13:50 Urine Color Yellow (Yellow) 09/30/22 12:50 Urine Appearance Clear (CLEAR) 09/30/22 12:50 Urine pH 7 (5-7) 09/30/22 12:50 Ur Specific [place] 1.010 (1.005-1.030) 09/30/22 12:50 Urine Protein Neg (Negative) 09/30/22 12:50 Urine Glucose (UA) Norm (Normal) 09/30/22 12:50 Urine Ketones Negative (Negative) 09/30/22 12:50 Urine Blood Neg (Negative) 09/30/22 12:50 Urine Nitrate Negative (Negative) 09/30/22 12:50 Urine Bilirubin Neg (Negative) 09/30/22 12:50 Urine Urobilinogen Norm mg/dL (Negative) 09/30/22 12:50 Ur Leukocyte Esterase Negative (Negative) 09/30/22 12:50 Discharge Plan Discharge Condition: Stable Prescriptions: No Action naproxen 500 mg tablet,delayed release (DR/EC) 500 mg PO BID PRN (Reason: pain) Qty: 60 1RF hydrochlorothiazide 25 mg tablet 25 mg PO DAILY lisinopril 40 mg tablet 40 mg PO DAILY Coding Level of Care Code ED Acupressure Therapist for Nati Fwd Exam Comprehensive
[2022-09-30 14:02] LABS: Basophils # 0.1 10^3/uL (0.0-0.1); Basophils % 0.6 %; Eosinophils # 0.3 10^3/uL (0.0-0.8); Hematocrit 43.6 % (42.0-52.0); Hemoglobin 14.7 g/dL (11.7-16.6); Lymphocytes % 20.1 %; Mean Corpuscular HGB Conc 33.7 g/dL (30.0-36.0); Mean Corpuscular Hemoglobin 28.4 pg (28.0-34.0); Mean Corpuscular Volume 84.3 fl (80-94); Mean Platelet Volume 9.8 fL (7.4-10.4); Monocytes # 0.8 10^3/uL (0.2-0.9); Monocytes % 7.4 %; Neutrophils # 6.97 10^3/uL (1.8-7.7); Neutrophils % 68.5 %; Nucleated Red Blood Cells % 0 %; Platelet Count 279 10^3/cmm (130-400); Red Blood Count 5.17 10^6/uL (4.1-5.3); Red Cell Distribution Width 12.2 % (12.1-15.1); White Blood Count 10.2 10^3/uL (4.0-10.0)
[2022-09-30 14:12] LABS: Add Urine Microscopic? NO; Charge for UA Resulting for Rev
[2022-09-30 14:21] LABS: Alanine Aminotransferase 21 U/L (0-41); Albumin Level 4.4 g/dL (3.5-5.2); Alkaline Phosphatase 107 U/L (40-130); Aspartate Amino Transferase 15 U/L (0-40); Blood Urea Nitrogen 16 mg/dL (6-20); C Reactive Protein 5.3 mg/L (0.0-4.9); Calcium 9.4 mg/dL (8.5-10.5); Carbon Dioxide 25 mmol/L (22-29); Chloride 98 mmol/L (98-107); Creatinine Clr Calc Pharmacy 141.3267; Globulin 2.2 g/dL (1.3-4.6); Glomerular Filtration Rate 82.8 mL/min (90-130); Glucose 136 mg/dL (65-115); Osmolality Calculated 287 mOsm/kg (285-295); Sodium 137 mmol/L (136-145); Total Bilirubin 0.6 mg/dL (0.15-1.2); Total Protein 6.6 g/dL (6.6-8.7)
[2022-09-30 14:22] LABS: Anion Gap 17.8 (5-19); Potassium 3.8 mmol/L (3.5-5.1)
[2022-09-30 14:27] LABS: Bilirubin Urine Neg (Negative); Blood Urine Neg (Negative); Glucose Urine UA Norm (Normal); Ketones Urine Negative (Negative); Leukocyte Esterase Urine Negative (Negative); Nitrate Urine Negative (Negative); Protein Urine Neg (Negative); Urine Appearance Clear (CLEAR); Urine Color Yellow (Yellow); Urobilinogen Urine Norm (Negative); pH Urine 7 (5-7)
--- NOTE | 2022-09-30 14:29 | CTR_ITS ---
PROCEDURE INFORMATION: Exam: CT Abdomen And Pelvis With Contrast Exam date and time: 09/30/2022 3:59 PM Age: 42 years old Clinical indication: Abdominal pain; Additional info: Left sided abd pain TECHNIQUE: Imaging protocol: Computed tomography of the abdomen and pelvis with contrast. Radiation optimization: All CT scans at this facility use at least one of these dose optimization techniques: automated exposure control; mA and/or kV adjustment per patient size (includes targeted exams where dose is matched to clinical indication); or iterative reconstruction. Contrast material: OMNIPAQUE 350; Contrast volume: 100 ml; Contrast route: INTRAVENOUS (IV); COMPARISON: CT kidney stone [id number] 08/18/2021 7:13 PM RADIATION DOSE METRICS: Total DLP (mGy-cm): 1395.03 FINDINGS: Liver: Findings consistent with fatty infiltration of the liver are identified. Gallbladder and bile ducts: Normal. No calcified stones. No ductal dilation. Pancreas: Normal. No ductal dilation. Spleen: Normal. No splenomegaly. Adrenal glands: Normal. No mass. Kidneys and ureters: Normal. No hydronephrosis. Stomach and bowel: Unremarkable. No obstruction. No mucosal thickening. Appendix: The appendix is visualized and appears normal. Intraperitoneal space: Unremarkable. No free air. No significant fluid collection. Vasculature: Unremarkable. No abdominal aortic aneurysm. Lymph nodes: Unremarkable. No enlarged lymph nodes. Urinary bladder: Unremarkable as visualized. Reproductive: Unremarkable as visualized. Bones/joints: There is deformity of the left femoral head. There is no evidence for acute fracture or malalignment. Soft tissues: Unremarkable. CT/CT abdomen pelvis w con* [id number] IMPRESSION: There are no acute concerning abnormalities.
[2022-09-30] MEDS: iohexol 350 mg/mL 500 mL Btl (per mL) IV (15:02)
[2022-09-30 16:55] VITALS: BP 146/90; PULSE 77; RESP 14; TEMP 36.8; O2SAT 97
== END 2022-09-30 16:56 | disposition home or self-care (01) ==
PROVIDERS: Emergency Provider Student in an Organized Health Care Education/Training Program
DX: R10.32 Left lower quadrant pain (principal); H91.90 Unspecified hearing loss, unspecified ear
CPT/HCPCS: 74177; 80053; 81003; 85025; 86140; 99284; Q9967

== ENCOUNTER → 2023-04-09 10:46 | Outpatient (BNVA) | payer MEDICARE, MEDICAID, SELFPAY | PROVIDERS: Visit Provider Emergency Medicine | DX: S89.91XA Unspecified injury of right lower leg, initial encounter (principal); X58.XXXA Exposure to other specified factors, initial encounter | CPT/HCPCS: 73562 ==

== ENCOUNTER 2023-05-13 12:16 | Emergency (ER) | payer MEDICARE, MEDICAID, SELFPAY ==
[2023-05-13 12:32] VITALS: BP 154/95; PULSE 80; RESP 16; TEMP 37; O2SAT 96
--- NOTE | 2023-05-13 12:32 | XR_ITS ---
WS: [id number] EXAMINATION: XR foot RT min 3V* [id number] REASON FOR EXAM: right foot pierced by nail COMPARISON: None available. ORDER DATE: 05/13/2023 12:34 PM TECHNIQUE: 3 views of the right foot were obtained. X-RAY FINDINGS: There are no fractures or dislocations. No focal abnormal soft tissue swelling. Joint spaces are pres erved. XR/XR foot RT min 3V* [id number] IMPRESSION: No fractures or dislocations of the right foot.
--- NOTE | 2023-05-13 12:42 | W.ED.EXTPRO ---
HPI - Extremity Problem General: Chief complaint: Extremity Injury, Lower Stated complaint: rt foot pierced by nail Time Seen by Provider: 05/13/23 12:39 History of Present Illness: Patient is a 43-year-old male who comes to the ED with right foot injury. Patient is deaf and nonverbal and communicates through writing. He states that 3 days ago he got a nail pierced into his right heel. There was a point of a nail sticking out on some steps a deep back to his right heel into the nail causing penetrating injury. He pulled his foot off the nail and there was a puncture wound on his right heel. Denies any embedded nail in right foot. He is now having pain in his right foot that he rates a 10 out of 10 and he describes it as an electric shocking type pain. Denies any purulent drainage from wound. He states he has been cleaning it and putting some cream on it and keeping it covered with a bandage. He is unsure of his last tetanus. Associated symptoms: Deny chest pain, fever(s) or rash Review of Systems Const: Denies: fever(s), chills or fatigue Eyes: Denies: change in vision or eye discomfort ENMT: Denies: throat pain, odynophagia, nasal discharge or nasal congestion Card: Denies: chest pain, palpitations, edema, swelling of feet/ankles, dyspnea on exertion or orthopnea Resp: Denies: dyspnea, productive cough or non-productive cough GI: Denies: abdominal pain, nausea, vomiting, diarrhea, constipation or hematochezia : Denies: flank pain, difficulty urinating, dysuria or hematuria Musc: Reports: extremity pain (Right foot); Denies: neck pain, back pain or extremity swelling Skin/Breast: Denies: rash or new lesions Neuro: Denies: headache(s), numbness in extremities or weakness in extremities PFSH ED PFSH: Medical History Bilateral renal stones Bursitis and tendinitis of shoulder region Deaf Deaf, nonspeaking DVT (deep venous thrombosis) Elevated blood pressure reading in office with diagnosis of hypertension Left ureteral stone Obesity (BMI 35.0-39.9 without comorbidity) Osteoarthritis of left hip Urolithiasis Multistone former. Spontaneously passed 2mm stone 2020. Additional bilateral small calculi Stone risk reduction strategies employed. Surgical History H/O left knee surgery Social History Smoking and tobacco status: never smoked Alcohol intake: never Marital status: Single Current occupational status: employed Physical Exam Const: COMMON NORMALS: no acute distress, patient oriented x3, healthy appearing and alert GENERAL APPEARANCE: cooperative and comfortable HENMT: COMMON NORMALS: normocephalic HEAD & SCALP: normocephalic MOUTH: Normal oral and palatal mucosa present THROAT: posterior oropharynx normal and uvula midline Neck/C-Spine: COMMON NORMALS: supple GENERAL: Yes normal visual inspection Resp: COMMON NORMALS: normal respiratory effort, No retractions, No use of accessory muscles and clear to auscultation bilaterally AUSCULTATION: clear to auscultation bilaterally Cardio: COMMON NORMALS: regular rate, regular rhythm, S1 normal heart sound present, S2 normal heart sound present, No gallops present (Cardio), No clicks present (Cardio), No murmurs present (Cardio) and Peripheral pulses 2+ throughout RATE: regular rate RHYTHM: regular rhythm HEART SOUNDS: S1 normal heart sound present and S2 normal heart sound present PERIPHERAL PULSES: Peripheral pulses 2+ throughout GI: COMMON NORMALS: Normal to inspection, nondistended, normoactive bowel sounds present, Soft to palpation, non-tender and no masses PALPATION: Yes Soft to palpation : COMMON NORMALS: Yes no CVA tenderness BLADDER/KIDNEY EXAM: Yes no CVA tenderness Back/Pelvis: COMMON NORMALS: no CVA tenderness Extremity: NARRATIVE EXTREMITY EXAM: Right foot?small puncture wound noted in back of right heel. Tender to palpation. No erythema, warmth or purulent drainage seen. Rest of exam of foot is benign. GENERAL: Yes normal exam except as noted Neuro: COMMON NORMALS: patient oriented x3 SENSORIUM/ORIENTATION: Yes alert GAIT: Yes Normal gait present Skin: GENERAL SKIN EXAM: dry skin Course Vital Signs: Vital signs: Vital Signs Temperature 98.6 F 05/13/23 12:32 Pulse Rate 72 05/13/23 14:04 Respiratory Rate 16 05/13/23 12:32 Blood Pressure 161/92 05/13/23 14:04 Pulse Oximetry 96 05/13/23 14:04 Oxygen Delivery Me thod Room Air 05/13/23 12:32 MDM - Extremity (Nontraumatic) Medical Decision Making Patient is a 43-year-old male who comes to the ED with right foot injury. Patient is deaf and nonverbal and communicates through writing. He states that 3 days ago he got a nail pierced into his right heel. There was a point of a nail sticking out on some steps a deep back to his right heel into the nail causing penetrating injury. He pulled his foot off the nail and there was a puncture wound on his right heel. Denies any embedded nail in right foot. He is now having pain in his right foot that he rates a 10 out of 10 and he describes it as an electric shocking type pain. Denies any purulent drainage from wound. He states he has been cleaning it and putting some cream on it and keeping it covered with a bandage. He is unsure of his last tetanus. Right foot?small puncture wound noted in back of right heel. Tender to palpation. No erythema, warmth or purulent drainage seen. Rest of exam of foot is benign. Right foot x-ray shows no acute fractures or findings. Patient was given updated tetanus here in the ED and a dose of Toradol to help with pain. Nurse irrigated and cleaned puncture wound on right heel with normal saline and then apply triple antibiotic ointment and bandage on wound. He was sent home with a prophylactic prescription for Keflex. Told to follow-up with his PCP in the next week for reevaluation. Return to ED precautions given. Patient was diagnosed with puncture wound of foot and was discharged home. He understood and agreed with plan Lab Data Radiology Impressions Foot X-Ray 05/13/23 12:32 IMPRESSION: No fractures or dislocations of the right foot. Discharge Plan Discharge Patient Disposition: Home Clinical Impression: Puncture wound of foot Qualifiers: Encounter type: initial encounter Laterality: right Qualified Code(s): S91.331A - Puncture wound without foreign body, right foot, initial encounter Condition: Stable Prescriptions: New cephalexin 500 mg capsule 500 mg PO Q6H 7 Days Qty: 28 0RF naproxen 500 mg tablet 500 mg PO BID PRN (Reason: pain) Qty: 20 0RF No Action naproxen 500 mg tablet,delayed release (DR/EC) 500 mg PO BID PRN (Reason: pain) Qty: 60 1RF ibuprofen 600 mg tablet 600 mg PO Q8H PRN (Reason: pain) Qty: 60 0RF lisinopril 40 mg tablet 40 mg PO DAILY Discharge Orders: Discharge ED (Routine); Ordered 05/13/23 Ordered By: Miguel Angel Alexandre Discharge Diet: Regular Discharge Activity: Increase activity as tolerated Patient Instructions: Puncture Wound (DC) Activity Restrictions/Additional Instructions: Follow-up with medical provider as directed in the next 5 to 7 days for reevaluation. Take medications as prescribed. Return to the ER or your medical provider if condition worsens. Please read and understand discharge instructions. Thank you for choosing [facility] for your healthcare needs today. Please realize this is an emergency room and that we are providing you with a medical screening exam and this may not be complete and all inclusive of all the testing and or work up that you may need to determine your ailment or severity of your illness. It is very important that you follow up as instructed or that you return to the Emergency Department should you have concerns or if your condition changes or worsens in any way. Stand Alone Forms: Work/School Release Coding Level of Care Code ED Chamber Walker for Nati Pierce
[2023-05-13] MEDS: tetanus-dipt-pertussis 0.5 mL SDV IM (13:06)
[2023-05-13] MEDS: neomycin-poly-bacitracin oint 28 gm 1 APPLIC TOPICAL (13:07)
[2023-05-13] MEDS: ketorolac 60 mg/2 mL INJ IM (13:07)
[2023-05-13 14:04] VITALS: BP 161/92; PULSE 72; O2SAT 96
== END 2023-05-13 14:05 | disposition home or self-care (01) ==
PROVIDERS: Emergency Provider Physician Assistant
DX: S91.331A Puncture wound without foreign body, right foot, initial encounter (principal); W45.0XXA Nail entering through skin, initial encounter; Z23 Encounter for immunization
CPT/HCPCS: 73630; 90471; 90715; 96372; 99284; J1885

== ENCOUNTER 2023-05-29 21:20 | Emergency (ER) | payer MEDICARE, MEDICAID, SELFPAY ==
[2023-05-29 21:58] VITALS: BP 155/93; PULSE 72; RESP 18; TEMP 36.7; O2SAT 98
--- NOTE | 2023-05-29 22:39 | XRR_ITS ---
PROCEDURE INFORMATION: Exam: XR Left Hip Exam date and time: 05/29/2023 10:50 PM Age: 43 years old Clinical indication: Hip pain; Left hip; Additional info: Worsening chronic hip pain TECHNIQUE: Imaging protocol: Radiologic exam of the left hip. Views: 2 or 3 views hip with pelvis when performed. COMPARISON: CT abdomen pelvis w con* [id number] 09/30/2022 3:59 PM FINDINGS: Bones/joints: Chronic foreshortening of the left femoral neck which is unchanged comparison. Widening and flattening of the left femoral head is unchanged. Negative for acute fractures. Negative for joint dislocation. Soft tissues: Unremarkable. XR/XR hip LT 2-3V wo/w pel* [id number] IMPRESSION: 1. Negative for acute pathology. 2. 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
--- NOTE | 2023-05-29 23:59 | W.ED.EXTPRO ---
HPI - Extremity Problem General: Chief complaint: Extremity Injury, Lower Stated complaint: HIP PAIN Time Seen by Provider: 05/29/23 23:28 History of Present Illness: Patient is a 43-year-old male who comes to the ED with left hip pain. Patient is deaf and uses sign language to talk. His son is present and translating history. Endorses having some chronic left hip pain, but it is gotten worse over the past 2 weeks. At rest the pain is very mild and minimal. Any movement of left leg bending or ambulating causes worsening pain that he rates a 10 out of 10. Patient did state that he fell twice within the last 2 weeks worsening his left hip pain as well. He states that he has a popping feeling in his left hip every time he goes to stand up. Associated symptoms: Deny chest pain, fever(s) or rash Review of Systems Const: Denies: fever(s), chills or fatigue Eyes: Denies: change in vision or eye discomfort ENMT: Denies: throat pain, odynophagia, nasal discharge or nasal congestion Card: Denies: chest pain, palpitations, edema, swelling of feet/ankles, dyspnea on exertion or orthopnea Resp: Denies: dyspnea, productive cough or non-productive cough GI: Denies: abdominal pain, nausea, vomiting, diarrhea, constipation or hematochezia : Denies: flank pain, difficulty urinating, dysuria or hematuria Musc: Reports: extremity pain (Left hip pain); Denies: neck pain, back pain or extremity swelling Skin/Breast: Denies: rash or new lesions Neuro: Denies: headache(s), numbness in extremities or weakness in extremities PFS ED PFSH: Medical History Bilateral renal stones Bursitis and tendinitis of shoulder region Deaf Deaf, nonspeaking DVT (deep venous thrombosis) Elevated blood pressure reading in office with diagnosis of hypertension Left ureteral stone Obesity (BMI 35.0-39.9 without comorbidity) Osteoarthritis of left hip Urolithiasis Multistone former. Spontaneously passed 2mm stone 2020. Additional bilateral small calculi Stone risk reduction strategies employed. Surgical History H/O left knee surgery Social History (Reviewed 04/09/23 @ 10:37 by ABDIRAHMAN Rivas Smoking and tobacco status: never smoked Alcohol intake: never Marital status: Single Current occupational status: employed Physical Exam Const: COMMON NORMALS: patient oriented x3 HENMT: COMMON NORMALS: normocephalic HEAD & SCALP: normocephalic MOUTH: Normal oral and palatal mucosa present THROAT: posterior oropharynx normal and uvula midline Neck/C-Spine: COMMON NORMALS: supple GENERAL: Yes normal visual inspection Resp: COMMON NORMALS: normal respiratory effort, No retractions, No use of accessory muscles and clear to auscultation bilaterally AUSCULTATION: clear to auscultation bilaterally Cardio: COMMON NORMALS: regular rate, regular rhythm, S1 normal heart sound present, S2 normal heart sound present, No gallops present (Cardio), No clicks present (Cardio), No murmurs present (Cardio) and Peripheral pulses 2+ throughout RATE: regular rate RHYTHM: regular rhythm HEART SOUNDS: S1 normal heart sound present and S2 normal heart sound present PERIPHERAL PULSES: Peripheral pulses 2+ throughout GI: COMMON NORMALS: Normal to inspection, nondistended, normoactive bowel sounds present, Soft to palpation, non-tender and no masses PALPATION: Yes Soft to palpation : COMMON NORMALS: Yes no CVA tenderness BLADDER/KIDNEY EXAM: Yes no CVA tenderness Back/Pelvis: COMMON NORMALS: no CVA tenderness Extremity: COMMON NORMALS: normal to inspection and no calf tenderness NARRATIVE EXTREMITY EXAM: Left hip?no point tenderness noted. Limited range of motion due to pain. Neurovascular intact distally. Rest of exam is benign. Neuro: COMMON NORMALS: patient oriented x3 GAIT: Yes Normal gait present Skin: GENERAL SKIN EXAM: dry skin Course Vital Signs: Vital signs: Vital Signs Temperature 98.0 F 05/29/23 21:58 Pulse Rate 70 05/30/23 00:18 Respiratory Rate 18 05/30/23 00:18 Blood Pressure 172/105 05/30/23 00:18 Pulse Oximetry 98 05/30/23 00:18 Oxygen Delivery Me thod Room Air 05/30/23 00:18 MDM - Extremity (Nontraumatic) Medical Decision Making Patient is a 43-year-old male who comes to the ED with left hip pain. Patient is deaf and uses sign language to talk. His son is present and translating history. Endorses having some chronic left hip pain, but it is gotten worse over the past 2 weeks. At rest the pain is very mild and minimal. Any movement of left leg bending or ambulating causes worsening pain that he rates a 10 out of 10. Patient did state that he fell twice within the last 2 weeks worsening his left hip pain as well. He states that he has a popping feeling in his left hip every time he goes to stand up. Vital stable. Patient appears nontoxic in no acute distress or pain. Left hip?no point tenderness noted. Limited range of motion due to pain. Neurovascular intact distally. Rest of exam is benign. Patient was given dose of hydrocodone here in the ED to help with pain. X-ray of the left hip showed no acute findings but showed some chronic dysplasia changes of proximal left femur. I placed an order with case management for patient referred to Ortho for follow-up on left hip pain. He was stable for discharge home and sent home with a prescription for meloxicam. Return to ED precautions given. Use crutches at home to help with ambulation as needed. Patient understood and agreed with plan. Lab Data Radiology Impressions Hip/Pelvis X-Ray 05/29/23 22:39 IMPRESSION: 1. Negative for acute pathology. 2. 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 Discharge Plan Discharge Patient Disposition: Home Clinical Impression: Hip pain, left Condition: Stable Prescriptions: New meloxicam 15 mg tablet 15 mg PO DAILY PRN (Reason: hip pain) Qty: 20 0RF No Action naproxen 500 mg tablet,delayed release (DR/EC) 500 mg PO BID PRN (Reason: pain) Qty: 60 1RF ibuprofen 600 mg tablet 600 mg PO Q8H PRN (Reason: pain) Qty: 60 0RF lisinopril 40 mg tablet 40 mg PO DAILY naproxen 500 mg tablet 500 mg PO BID PRN (Reason: pain) Qty: 20 0RF Discharge Orders: Discharge ED (Routine); Ordered 05/30/23 Ordered By: Miguel Angel Alexandre Discharge Diet: Regular Discharge Activity: Use walker/crutches as instructed Patient Instructions: Hip Pain (ED) Activity Restrictions/Additional Instructions: Follow-up with medical provider as directed. Case management should be contacted in the next several days to set up an appointment with Ortho for follow-up on left hip pain. You can use crutches and limit weightbearing for the next couple days to help with ambulation. take medications as prescribed. Return to the ER or your medical provider if condition worsens. Please read and understand discharge instructions. Thank you for choosing [facility] for your healthcare needs today. Please realize this is an emergency room and that we are providing you with a medical screening exam and this may not be complete and all inclusive of all the testing and or work up that you may need to determine your ailment or severity of your illness. It is very important that you follow up as instructed or that you return to the Emergency Department should you have concerns or if your condition changes or worsens in any way. Stand Alone Forms: Work/School Release Coding Level of Care Code ED Line Assembly Utility Worker for Nati Pierce
[2023-05-30 00:18] VITALS: BP 172/105; PULSE 70; RESP 18; O2SAT 98
[2023-05-30] MEDS: HYDROcodone-acetaminophen 7.5-325 mg Tablet 1 TAB PO (00:19)
[2023-05-30] MEDS: HYDROcodone-acetaminophen 5-325 mg Tablet 1 TAB PO (00:22)
--- NOTE | 2023-05-30 07:42 | DCPLANNER ---
Addendum entered by Makenzie Richard 06/12/23 12:46: Patient had a follow up appointment scheduled with ortho - patient did attend appointment. Original Note: manager sales training had message to schedule a follow up appointment for patient with ortho. manager sales training sent patients information to the front office staff at ortho. Patients information will be printed and reviewed. Clinic will call patient with appointment information.
--- NOTE | 2023-05-30 07:56 | DCPLANNER ---
senior asset manager was triggered to call patient due to no primary care physician - unable to speak with patient.
== END 2023-05-30 00:28 | disposition home or self-care (01) ==
PROVIDERS: Emergency Provider Physician Assistant
DX: M25.552 Pain in left hip (principal)
CPT/HCPCS: 73502; 99283

== ENCOUNTER → 2023-06-07 08:55 | Outpatient (BNVA) | payer MEDICARE, MEDICAID, SELFPAY | PROVIDERS: Visit Provider Nurse Practitioner Family | DX: Q65.89 Other specified congenital deformities of hip (principal) | CPT/HCPCS: 99214 ==

== ENCOUNTER → 2023-07-10 08:36 | Outpatient (BNVA) | payer MEDICARE, MEDICAID, SELFPAY | PROVIDERS: Referring Provider Student in an Organized Health Care Education/Training Program; Visit Provider Anesthesiology Pain Medicine | DX: M25.552 Pain in left hip (principal); Q65.89 Other specified congenital deformities of hip | CPT/HCPCS: 99204 ==

== ENCOUNTER → 2023-07-18 12:28 | Outpatient (BNVA) | payer MEDICARE, MEDICAID, SELFPAY | PROVIDERS: Visit Provider Anesthesiology Pain Medicine | DX: M16.12 Unilateral primary osteoarthritis, left hip (principal) | CPT/HCPCS: 20610; 77002; J1030; J3490 ==

== ENCOUNTER → 2023-08-01 10:35 | Outpatient (BNVA) | payer MEDICARE, MEDICAID, SELFPAY | PROVIDERS: Visit Provider Anesthesiology Pain Medicine | DX: Q65.89 Other specified congenital deformities of hip; M25.562 Pain in left knee; M16.12 Unilateral primary osteoarthritis, left hip; M17.11 Unilateral primary osteoarthritis, right knee | CPT/HCPCS: 73562; 99214 ==

== ENCOUNTER 2023-10-25 21:25 | Emergency (ER) | payer MEDICARE, MEDICAID, SELFPAY ==
[2023-10-25 21:44] VITALS: BP 188/108; PULSE 69; RESP 17; TEMP 36.7; O2SAT 98; BMI 37.2
--- NOTE | 2023-10-26 00:01 | USR_ITS ---
PROCEDURE INFORMATION: Exam: US Duplex Left Lower Extremity Veins, Limited Exam date and time: 10/26/2023 12:30 AM Age: 43 years old Clinical indication: Pain; Leg, lower; Left; Additional info: L leg pain, edema TECHNIQUE: Imaging protocol: Real-time duplex ultrasound of the left extremity with 2-D benavides scale, color Doppler flow and spectral waveform analysis including responses to compression and other maneuvers (when performed) with image documentation. Limited exam focused on the left lower extremity veins. COMPARISON: US soft tissue/extremity [id number] 06/23/2021 7:08 AM FINDINGS: Left deep veins: Unremarkable. The common femoral, femoral, proximal profunda femoral and popliteal veins are patent without thrombus. Normal Doppler waveforms. Normal compressibility and/or augmentation response. Imaged posterior tibial and peroneal veins are also patent. Superficial veins: Nonocclusive venous thrombus within the small saphenous vein. Saphenofemoral junction is patent without thrombus Soft tissues: Unremarkable. US/[place] [id number] IMPRESSION: 1. No evidence of deep vein thrombosis. 2. Nonocclusive thrombus within the small saphenous vein.
[2023-10-26] MEDS: oxyCODONE-APAP 5-325 mg Tablet 2 TAB PO (01:10)
[2023-10-26] MEDS: aspirin 325 mg Tablet PO (01:10)
--- NOTE | 2023-10-26 17:19 | ED_ITS ---
HPI - Extremity Problem General: Chief complaint: Extremity Problem,Nontraumatic Stated complaint: patient thinks another blood clot L leg Time Seen by Provider: 10/25/23 23:34 History of Present Illness: 43 year old male with left lateral leg p ain. It is non traumatic period he has some redness and warmth as well. No fever. He is worried about a blood clot. No shortness of breath. No chest pain. Associated symptoms: Deny chest pain or fever(s) Review of Systems Const: Denies: fever(s), chills or body aches Card: Denies: chest pain or palpitations Resp: Denies: dyspnea, productive cough, non-productive cough or wheezing GI: Denies: abdominal pain, nausea, vomiting, diarrhea or hematochezia PFSH ED PFSH: Medical History Bilateral renal stones Bursitis and tendinitis of shoulder region Deaf Deaf, nonspeaking DVT (deep venous thrombosis) Elevated blood pressure reading in office with diagnosis of hypertension Left ureteral stone Obesity (BMI 35.0-39.9 without comorbidity) Osteoarthritis of left hip Urolithiasis Multistone former. Spontaneously passed 2mm stone 2020. Additional bilateral small calculi Stone risk reduction strategies employed. Surgical History H/O left knee surgery Social History Smoking and tobacco/nicotine status: never used tobacco/nicotine Alcohol intake: never Marital status: Single Current occupational status: employed Physical Exam Const: COMMON NORMALS: no acute distress GENERAL APPEARANCE: cooperative; not ill appearing and not frail appearing HENMT: COMMON NORMALS: normocephalic, atraumatic and Normal external nose present HEAD & SCALP: normocephalic and atraumatic FACE & SINUS: normal facial exam and face symmetric NOSE: Normal external nose present Eye: COMMON NORMALS: Equal, round and reactive pupils present and EOMs intact bilaterally PUPIL: Yes Equal, round and reactive pupils present Neck/C-Spine: GENERAL: Yes trachea midline Chest: CHEST: Yes Symmetrical chest wall rise Resp: COMMON NORMALS: normal respiratory effort, No retractions, No use of accessory muscles and clear to auscultation bilaterally AUSCULTATION: clear to auscultation bilaterally Cardio: COMMON NORMALS: regular rate and regular rhythm RATE: regular rate RHYTHM: regular rhythm GI: COMMON NORMALS: Normal to inspection, nondistended, normoactive bowel sounds present Extremity: COMMON NORMALS: no pedal edema NARRATIVE EXTREMITY EXAM: Some left lateral calf tenderness. no popliteal tenderness. Minimal redness. no edema. No defomity. Neuro: SAKSHI COMA SCALE: document GCS findings Wadsworth coma scale eye opening: Spontaneous Wadsworth coma scale verbal response: Orientated Sakshi coma scale motor response: Obey commands Wadsworth coma scale total score: 15 SENSORY EXAM: Yes extremities (intact) Psych: COMMON NORMALS: speech normal SPEECH: Yes normal speech Course Vital Signs: Vital signs: Vital Signs Temperature 98.1 F 10/25/23 21:44 Pulse Rate 69 10/25/23 21:44 Respiratory Rate 17 10/25/23 21:44 Blood Pressure 188/108 10/25/23 21:44 Pulse Oximetry 98 10/25/23 21:44 Oxygen Delivery Me thod Room Air 10/25/23 21:44 MDM - Extremity (Nontraumatic) Medical Decision Making Ultrasound with Doppler of the left lower extremity reveals no DVT. There is non occlusive clot in the small saphenous vein. This is causing a superficial thrombophlebitis. Aspirin, pain relief, ice and elevation with compression. Outpatient follow up. Lab Data Radiology Impressions Venous Duplex 10/26/23 00:01 IMPRESSION: 1. No evidence of deep vein thrombosis. 2. Nonocclusive thrombus within the small saphenous vein. All radiology interpretation(s) finalized by discharge Discharge Plan Discharge Patient Disposition: Home Clinical Impression: Superficial thrombophlebitis Condition: Stable Prescriptions: New aspirin 325 mg capsule 325 mg PO DAILY Qty: 30 0RF No Action naproxen 500 mg tablet,delayed release (DR/EC) 500 mg PO BID PRN (Reason: pain) Qty: 60 1RF ibuprofen 600 mg tablet 600 mg PO Q8H PRN (Reason: pain) Qty: 60 0RF lisinopril 40 mg tablet 40 mg PO DAILY naproxen 500 mg tablet 500 mg PO BID PRN (Reason: pain) Qty: 20 0RF meloxicam 15 mg tablet 15 mg PO DAILY PRN (Reason: hip pain) Qty: 20 0RF Discharge Orders: Discharge ED (Routine); Ordered 10/26/23 Ordered By: Teo Howard Patient Instructions: Superficial Thrombophlebitis (ED), Opioid Safety, Pain Management Activity Restrictions/Additional Instructions: Ice and elevate your leg for pain and swelling. A compression stocking may help as well. Take aspirin daily, as it can reduce pain and inflammation in the area and keep it from worsening. Return for worsening swelling despite treatment, worsening pain redness or fever, other concerning symptoms. Coding Level of Care Code ED Dye Reel Operator for Nati Pierce
== END 2023-10-26 01:16 | disposition home or self-care (01) ==
PROVIDERS: Emergency Provider Emergency Medicine
DX: I80.02 Phlebitis and thrombophlebitis of superficial vessels of left lower extremity (principal); Z86.718 Personal history of other venous thrombosis and embolism
CPT/HCPCS: 93971; 99284

== ENCOUNTER → 2023-10-30 08:54 | Outpatient (BNVA) | payer MEDICARE, SELFPAY | PROVIDERS: Visit Provider Anesthesiology Pain Medicine | DX: M54.9 Dorsalgia, unspecified (principal); Q65.89 Other specified congenital deformities of hip; M25.562 Pain in left knee; M16.12 Unilateral primary osteoarthritis, left hip | CPT/HCPCS: 99214 ==

== ENCOUNTER → 2023-11-05 13:30 | Outpatient (BNVA) | payer MEDICARE, SELFPAY | PROVIDERS: Visit Provider Anesthesiology Pain Medicine | DX: M16.12 Unilateral primary osteoarthritis, left hip (principal) | CPT/HCPCS: 20610; J1030; J3490 ==

== ENCOUNTER → 2023-11-27 13:54 | Outpatient (BNVA) | payer MEDICARE, MEDICAID, SELFPAY | PROVIDERS: Visit Provider Anesthesiology Pain Medicine | DX: M17.11 Unilateral primary osteoarthritis, right knee (principal) | CPT/HCPCS: 20610; J1030; J3490 ==

== ENCOUNTER → 2024-02-10 08:29 | Outpatient (BNVA) | payer MEDICARE, SELFPAY | PROVIDERS: Visit Provider Anesthesiology Pain Medicine | DX: M17.11 Unilateral primary osteoarthritis, right knee (principal); Q65.89 Other specified congenital deformities of hip; M16.12 Unilateral primary osteoarthritis, left hip; M54.50 Low back pain, unspecified | CPT/HCPCS: 99214 ==

== ENCOUNTER → 2024-02-18 13:43 | Outpatient (BNVA) | payer MEDICARE, SELFPAY | PROVIDERS: Visit Provider Anesthesiology Pain Medicine | DX: M54.9 Dorsalgia, unspecified; Q65.89 Other specified congenital deformities of hip; M16.12 Unilateral primary osteoarthritis, left hip | CPT/HCPCS: 20610; 99214; J1030; J3490 ==

== ENCOUNTER → 2024-03-19 14:29 | Outpatient (BNVA) | payer MEDICARE, SELFPAY | PROVIDERS: Visit Provider Anesthesiology Pain Medicine | DX: M16.12 Unilateral primary osteoarthritis, left hip (principal) | CPT/HCPCS: 20610; 77002; J1010; J3490 ==

== ENCOUNTER 2024-05-23 20:03 | Emergency (ER) | payer MEDICARE, MEDICAID, SELFPAY ==
[2024-05-23 20:09] VITALS: BP 171/140; PULSE 91; RESP 18; TEMP 36.6; O2SAT 95
--- NOTE | 2024-05-23 20:18 | W.ED.EXTPRO ---
HPI - Extremity Problem General: Chief complaint: Extremity Injury, Lower Stated complaint: Left knee injury Time Seen by Provider: 05/23/24 20:07 History of Present Illness: 44-year-old man who tripped and fell and is hurt his right knee. He said he had a tear in it before. He has not been able to bear weight. This happened about an hour ago. No other injuries. He has some swelling/effusion. This happened about an hour ago. Review of Systems Narrative: Constitutional symptoms: Negative except as documented in HPI. Skin symptoms: Negative except as documented in HPI. Eye symptoms: Negative except as documented in HPI. ENMT symptoms: Negative except as documented in HPI. Respiratory symptoms: Negative except as documented in HPI. Cardiovascular symptoms: Negative except as documented in HPI. Gastrointestinal symptoms: Negative except as documented in HPI. Genitourinary symptoms: Negative except as documented in HPI. Musculoskeletal symptoms: Negative except as documented in HPI. Neurologic symptoms: Negative except as documented in HPI. Psychiatric symptoms: Negative except as documented in HPI. Endocrine symptoms: Negative except as documented in HPI. PFSH ED PFSH: Medical History Osteoarthritis of left hip Urolithiasis Multistone former. Spontaneously passed 2mm stone 2020. Additional bilateral small calculi Stone risk reduction strategies employed. Bilateral renal stones Left ureteral stone Bursitis and tendinitis of shoulder region Elevated blood pressure reading in office with diagnosis of hypertension Obesity (BMI 35.0-39.9 without comorbidity) Deaf, nonspeaking Deaf DVT (deep venous thrombosis) Surgical History H/O left knee surgery Social History Smoking and tobacco/nicotine status: never used tobacco/nicotine Alcohol intake: never Marital status: Single Current occupational status: employed Physical Exam Narrative: EXAM NARRATIVE: General: Alert, no acute distress. Skin: warm and dry Head: Normocephalic Neck: Trachea midline Eye: Extraocular movements are intact. Ears, nose, mouth and throat: Oral mucosa moist Respiratory: Respirations are non-labored Musculoskeletal: Mild effusion of the right knee. No obvious deformities. No redness. Limited range of motion from pain. Neurological: Alert and oriented, No focal neurological deficit observed. Psychiatric: Cooperative, appropriate mood & affect. Course Vital Signs: Vital signs: Vital Signs Temperature 98 F 05/23/24 20:09 Pulse Rate 91 05/23/24 20:09 Respiratory Rate 18 05/23/24 20:09 Blood Pressure 171/140 05/23/24 20:09 Pulse Oximetry 95 05/23/24 20:09 Oxygen Delivery Me thod Room Air 05/23/24 20:09 MDM - Extremity (Nontraumatic) Medical Decision Making X-ray of the right knee: No fracture. No dislocation. This was reviewed and interpreted by myself the emergency room physician. There appears to be some old surgical changes in his tibia. There is absolutely no pain to palpation at his tibial plateau area Assessment and plan: Knee sprain ?[place] in the emergency room - Discharged home - Discussed plan with patient. Answered any questions. - Evaluation and treatment of this problem were appropriate in the emergency setting. XR interpretation done by ED provider, pending radiology final review Discharge Plan Discharge Patient Disposition: Home Clinical Impression: Knee sprain, Deaf, nonspeaking Condition: Stable Prescriptions: New hydrocodone-acetaminophen 5-325 mg tablet 1 tab PO Q6H PRN (Reason: pain) Qty: 20 0RF Miralax 17 gram/dose powder 17 g PO DAILY Qty: 510 0RF Rx Instructions: Take 1 scoop daily while taking pain medications. No Action naproxen 500 mg tablet,delayed release (DR/EC) 500 mg PO BID PRN (Reason: pain) Qty: 60 1RF ibuprofen 600 mg tablet 600 mg PO Q8H PRN (Reason: pain) Qty: 60 0RF lisinopril 40 mg tablet 40 mg PO DAILY naproxen 500 mg tablet 500 mg PO BID PRN (Reason: pain) Qty: 20 0RF meloxicam 15 mg tablet 15 mg PO DAILY PRN (Reason: hip pain) Qty: 20 0RF aspirin 325 mg capsule 325 mg PO DAILY Qty: 30 0RF Discharge Orders: Discharge ED (Routine); Ordered 05/23/24 Ordered By: Noris Berrios Referrals: Scooby Mullins DO [Physician] - 4-7 days (Please call for an appointment if pain persists) Discharge Diet: Usual diet Discharge Activity: Increase activity as tolerated Patient Instructions: Knee Sprain (ED) Activity Restrictions/Additional Instructions: Use crutches as needed. Use brace as needed. Follow with Ortho Thank you for choosing [facility] for your healthcare needs today. Please realize this is an emergency room and that we are providing you with a medical screening exam and this may not be complete and all inclusive of all the testing and or work up that you may need to determine your ailment or severity of your illness. You have been screened and evaluated and felt safe for discharge. Health conditions do change or evolve sometimes and as such it is important that you follow up with your Primary Doctor to be re checked, 3-5 days is a general good time frame for follow up. 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
--- NOTE | 2024-05-23 20:25 | XRR_ITS ---
PROCEDURE INFORMATION: Exam: XR Right Knee Exam date and time: 05/23/2024 8:27 PM Age: 44 years old Clinical indication: Injury or trauma; Fall; Other: General pain; Prior surgery; Surgery date: 6+ months; Surgery type: Acl; Additional info: Knee injury RT knee, pain and swelling after fall TECHNIQUE: Imaging protocol: Radiologic exam of the right knee. Views: 3 views. COMPARISON: CR XR knee RT 3V* [id number] 08/01/2023 10:38 AM FINDINGS: Bones/joints: Normal mineralization and alignment. No evidence of acute fracture. Evidence of prior ACL repair. Moderate tricompartmental degenerative change. [id number] joint effusion. Soft tissues: Normal. XR/XR knee RT 3V* [id number] IMPRESSION: No evidence of acute fracture.
[2024-05-23] MEDS: HYDROcodone-acetaminophen 10-325 mg Tablet 1 TAB PO (21:12)
[2024-05-23 21:44] VITALS: PULSE 78; O2SAT 98
== END 2024-05-23 21:47 | disposition home or self-care (01) ==
PROVIDERS: Emergency Provider Emergency Medicine
DX: S83.91XA Sprain of unspecified site of right knee, initial encounter (principal); H91.3 Deaf nonspeaking, not elsewhere classified; Z79.82 Long term (current) use of aspirin; W01.0XXA Fall on same level from slipping, tripping and stumbling without subsequent striking against object, initial encounter
CPT/HCPCS: 29530; 73562; 99283

== ENCOUNTER → 2024-06-11 15:15 | Outpatient (BNVA) | payer MEDICARE, MEDICAID, SELFPAY | PROVIDERS: Visit Provider Orthopaedic Surgery | DX: M25.561 Pain in right knee | CPT/HCPCS: 73562; 99203 ==

== ENCOUNTER 2024-06-23 07:35 | Outpatient (CLI) | payer MEDICARE, MEDICAID, SELFPAY ==
--- NOTE | 2024-06-23 08:34 | MR_ITS ---
WS: [id number] MRI RIGHT KNEE HISTORY: M25.561 - Pain in right knee COMPARISON: 04/01/2013 Anterior cruciate ligament: No full-thickness ACL tear identified. There is very slight thinning of t he distal ACL but no tear. Posterior cruciate ligament: Prior posterior cruciate ligament repair. The PCL is identified and redu ndant and overlapping in its appearance. Seen only on a couple sequences is fluid traversing the keiry rity of the PCL suggesting an interval tear. Medial collateral ligament: Small amount of fluid between the tibial metaphysis and the MCL but no MC L tear. Posterior lateral corner structures: Intact. Medial menisci: Abnormal signal throughout a large portion of the posterior horn extending to the inf erior articular surface. There is a tear in an intrasubstance degeneration. Significant blunting of t he free edge. Increasing signal towards the meniscal root. Progression of tears within the posterior horn since the prior study from 2012. Lateral meniscus: Intact. Normal signal, size and shape. Extensor mechanism: Distal quadriceps tendon and patellar tendons are intact. Fluid and soft tissue: Small suprapatellar joint effusion. No Campuzano's cyst. Osseous and articular structures: Patellofemoral compartment: Mild narrowing of the patellofemoral joint space. Medial compartment: Mild narrowing of the medial compartment. There is significant thinning and fissu ring of the cartilage greatest along the weightbearing surfaces. No marrow edema. Lateral compartment: Mild narrowing of the lateral compartment with mild chondromalacia. No marrow ed shilpi or fracture. MR/MR knee RT wo con* [id number] IMPRESSION: 1. Status post remote PCL repair. 2. Fluid signal in a small portion of the PCL is highly concerning for recurre nt tear. The PCL is also redundant. 3. ACL intact. 4. Diffuse abnormal signal throughout the posterior horn medial meniscus consi stent with intrasubstance degeneration and a horizontal tear extending to the i ntra-articular surface. There is also a tear involving the free edge. 5. Small joint effusion. 6. Mild narrowing of the medial compartment with moderate diffuse chondromalac ia along the weightbearing surfaces. 7. Mild MCL sprain.
== END 2024-06-23 07:36 | disposition home or self-care (01) ==
LOC: RAD 07:35
PROVIDERS: Visit Provider Orthopaedic Surgery
DX: M94.261 Chondromalacia, right knee; S83.241A Other tear of medial meniscus, current injury, right knee, initial encounter; S83.411A Sprain of medial collateral ligament of right knee, initial encounter; X58.XXXA Exposure to other specified factors, initial encounter
CPT/HCPCS: 73721

== ENCOUNTER → 2024-07-17 07:59 | Outpatient (BNVA) | payer MEDICARE, MEDICAID, SELFPAY | PROVIDERS: Visit Provider Physician Assistant | DX: S83.206A Unspecified tear of unspecified meniscus, current injury, right knee, initial encounter; S89.91XA Unspecified injury of right lower leg, initial encounter; X58.XXXA Exposure to other specified factors, initial encounter | CPT/HCPCS: 73560; 73565; 99214 ==

== ENCOUNTER 2024-08-05 08:52 | Day surgery (SDC) | payer MEDICARE, MEDICAID, SELFPAY ==
[2024-08-05] VITALS (10 sets, daily range): BP systolic 120–167; BP diastolic 72–108; PULSE 55–73; RESP 13–18; TEMP 36.1–36.5; O2SAT 92–98
[2024-08-05] MEDS: sodium chloride 0.9% 1,000 ML 30 ML IV (10:16)
[2024-08-05] MEDS: acetaminophen 1,000 MG/100 ML PIGGYBACK 400 MG IV (10:17)
[2024-08-05] MEDS: ketorolac 30 mg/mL INJ IVP (10:18)
[2024-08-05] MEDS: scopolamine 1.5 Patch 1 PATCH TRANSDERMA (10:18)
--- NOTE | 2024-08-05 10:36 | ANES.PREANE2 ---
Pre-Anesthetic Assessment Height/Weight: Height 1.83 m Operation Date: 08/05/24 10:25 Proposed Procedures p Knee Arthroscopy Knee Arthroscopy w/partial Medial Menisectomy(Right) - DO Willem Stephenson anesthetic complications: None Was Beta Kinza taken within 24 hours: N/A Was Clonidine taken within 24 hours: N/A Last intake: > 8 hrs Social No alcohol and No tobacco Exam alert, oriented x 3, clear to auscultation bilaterally and regular rate & rhythm Airway Mallampati: Class IV Dentition: full Comments: Comments: large neck circumference CV/HEM Hypertension Metabolic Morbid Obesity Anesthetic Plan ASA status: 2 Anesthesia: General Risk of > 500 ml blood loss (7ml/kg in children): No Medications/Allergies Home Medications Medication Instructions Recorded Confirmed Last Taken Type naproxen 500 mg tablet,delayed 500 mg PO BID PRN pain #60 tabs 08/21/22 08/04/24 Unknown Rx release lisinopril 40 mg tablet 40 mg PO DAILY 09/30/22 08/05/24 08/05/24 History ibuprofen 600 mg tablet 600 mg PO Q8H PRN pain #60 tabs 04/09/23 08/04/24 Unknown Rx naproxen 500 mg tablet 500 mg PO BID PRN pain #20 tabs 05/13/23 08/04/24 Unknown Rx meloxicam 15 mg tablet 15 mg PO DAILY PRN hip pain #20 05/30/23 08/04/24 Unknown Rx tabs aspirin 325 mg capsule 325 mg PO DAILY #30 caps 10/26/23 08/04/24 07/28/24 Rx polyethylene glycol 3350 17 17 g PO DAILY #510 grams 05/23/24 08/04/24 Unknown Rx gram/dose oral powder (Miralax) hydrocodone 5 mg-acetaminophen 325 1 tab PO Q12H PRN pain 10 days #20 07/03/24 Unknown Rx mg tablet tabs hydrocodone 5 mg-acetaminophen 325 1 tab PO Q6H PRN pain 5 days #20 07/17/24 08/04/24 08/03/24 Rx mg tablet tabs ibuprofen 800 mg tablet 800 mg PO Q8H PRN pain #30 tabs 07/17/24 08/04/24 Unknown Rx hydrocodone 7.5 mg-acetaminophen 1 tab PO Q6H PRN pain #20 tabs 08/05/24 Unknown Rx 325 mg tablet Allergies Allergy/AdvReac Type Severity Reaction Status Date / Time No Known Allergies Allergy Verified 08/04/24 08:43 Current Medications Generic Name Dose Route Start Last Admin Trade Name Benito PRN Reason Stop Dose Admin Sodium Chloride 1,000 mls @ 30 mls/hr 08/05/24 09:00 08/05/24 10:16 Sodium Chloride 0.9% IV 08/06/24 08:59 30 mls/hr .Q24H OFELIA Administration PFSH Anesthesia Medical History Osteoarthritis of left hip Urolithiasis Multistone former. Spontaneously passed 2mm stone 2020. Additional bilateral small calculi Stone risk reduction strategies employed. Bilateral renal stones Left ureteral stone Bursitis and tendinitis of shoulder region Elevated blood pressure reading in office with diagnosis of hypertension Obesity (BMI 35.0-39.9 without comorbidity) Deaf, nonspeaking Deaf DVT (deep venous thrombosis) Surgical History H/O left knee surgery Social History Smoking and tobacco/nicotine status: unknown if used tobacco/nicotine Alcohol intake: never Marital status: Single Current occupational status: employed Data Anesthesia Cardiac Studies: No Data to Display
--- NOTE | 2024-08-05 11:44 | P.HPUD_ITS ---
Surgery/Procedure H&P Update DATE OF PROCEDURE: August 05, 2024 DATE H&P PERFORMED: 07/17/24 H&P UPDATE INFORMATION: I have reviewed H&P completed within last 30 days, I have examined patient prior to procedure and No changes to prior documentation CHANGES TO PREVIOUS DOCUMENTATION: Patient is deaf and had to utilize tablet for sign language and discussion. I once again reviewed his MRI which does show that he had a previous PCL repair that does have concerning findings for possible a retear this does appear to be an isolated injury as well as he does have a meniscal tear. We talked about it in detail given an isolated PCL ligamentous injury in the extensive recovery process if patient were wanting to have this fixed. Ultimately I stated that I do not perform this procedure and he would have to see elsewhere which was addr brian in the office. Ultimately would like to just have the meniscus addressed and fixed and I feel as though this is a good reasonable option as this will be a less recovery process and he can work through therapy to rehab his PCL injury. I did also express that he does have some arthritic changes evident with moderate chondromalacia on the medial compartment and as a result I feel that eventually a total knee replacement will be in his future at some point but we talked about hopefully prolonging this as well as this hopefully addressing his pain and more acute symptoms currently. I do feel as though his knee would be amenable for some improvement with this arthroscopy procedure which I detailed out below. Personally had talked about with him and states that I feel as though if this were my knee I would approach this with the same mentality of just addressing the meniscus and rehabbing the isolated possible PCL injury. He understands and agrees with current plan. All questions have been answered at this time we will proceed with surgery for left knee diagnostic and surgical arthroscopy with partial medial meniscectomy versus repair. All questions answered at this time. PREOP DIAGNOSIS: Left knee medial meniscus tear possible PCL injury PRIMARY INDICATION FOR PROCEDURE: Left knee medial meniscus tear, possible PCL injury PLANNED PROCEDURE: Operation Date: 08/05/24 10:25 Proposed Procedures p Knee Arthroscopy Knee Arthroscopy w/partial Medial Menisectomy(Right) - Duane Alexandre DO
[2024-08-05] MEDS: ceFAZolin 3,000 MG in sodium chloride 0.9% (plus) 100 ML 200 MG IV (12:00)
[2024-08-05] MEDS: lidocaine-epi 2% PF 1:200,000 20 mL SDV XX ×2 (12:10→12:50)
--- NOTE | 2024-08-05 13:07 | W.PM.BPON ---
Date of Procedure: [August 05, 2024] Surgeon: [Dr. Bettie DO] Molding Process Technician(s): [Miguel Angel Alexandre PA-C] Procedure(s) performed: [Right knee diagnostic and surgical arthroscopy Partial medial meniscectomy Extensive synovectomy Medial and patellofemoral chondroplasty] Findings of the procedure(s): [Right knee extensive synovitis with medial meniscectomy tear and root. Grade 3 medial joint compartment chondromalacia, grade 2 lateral joint compartment chondral malacia and grade 3-4 patellofemoral chondromalacia] Estimated blood loss: [5 mL] Specimen(s) removed: [n/a] Post-operative diagnosis: [Right knee medial meniscus tear and extensive synovitis. Patient has extensive moderate to severe degenerative joint disease of the knee]
--- NOTE | 2024-08-05 13:14 | PM.OP ---
Operative Report Date of procedure: August 05, 2024 Surgeon: Duane Alexandre DO Wire Winding Machine Tender: Miguel Angel Alexandre PA-C: PA was necessary for assistance in this case with leg positioning, assistance with instrumentation, wound closure and dressing application. 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 Right knee PCL partial tear Procedure done: Right?knee?diagnostic and surgical arthroscopy partial medial meniscectomy Right?knee?diagnostic and surgical arthroscopy with extensive synovectomy of the medial lateral and patellofemoral compartments Right?knee?diagnostic and surgical arthroscopy with medial and patellofemoral compartment chondroplasty Surgeon: Duane Alexandre DO Estimated blood loss: 5 Tourniquet: No tourniquet was used IV fluids: See anesthesia record Complications: None Findings: See operative report narrative Condition: stable Disposition: same day Brief History: Patient is a 44-year-old male with right?knee?pain.? Patient has failed conservative treatment who has been worked up for right??knee?pain in the outpatient setting. MRI findings consistent with tear of the medial meniscus as well as PCL tear from a previous reconstruction. He is also noted to have moderate chondromalacia/knee arthritis. talked in the office about treatment options patient would like to proceed with a right?knee?diagnostic and surgical arthroscopy with partial medial meniscectomy versus repair.? Patient understand the ins and outs of the procedure the risk benefits complication alternatives to treatment options.? Understanding risk of surgery they agree to proceed with surgical intervention.? Patient understand this may not provide patient with complete symptomatic relief of? pain as patient does have some underlying arthritis.? Understanding this and patient agree to proceed with surgical intervention all questions answered. Procedure: Patient seen and evaluated in the preoperative holding area.? Consent was reviewed and signed with patient.? Correct extremity was then marked.? Patient seen evaluated Anesthesia Department once cleared for surgery patient was taken back to the operative suite.? Patient was transported onto the OR table in supine position.? All bony prominences well-padded patient was appropriate secured to the bed.? Once appropriately anesthetized a nonsterile tourniquet was applied to the right thigh.? The right lower extremity was then prepped and draped in standard orthopedic fashion.? Final timeout performed.? Patient received appropriate preoperative antibiotics. Patient received local anesthetic of lidocaine with epinephrine into the joint as well as around the portal sites.? No tourniquet was inflated A standard 2 portal vertical incision diagnostic and surgical arthroscopy of the right?knee?was performed in standard fashion.? Small stab incision made in the inferolateral portal introduced trocar and arthroscope into the suprapatellar pouch.? Suprapatellar pouch was subsequently visualized and found to have significant synovitis but no loose bodies.? Patient had noticeable significant inflamed infrapatellar fat pad and thickening hypertrophic within the patellofemoral compartment.? ?The medial gutter was free of loose bodies I then introduced the arthroscope into the medial compartment.? Within the medial compartment I then established my inferior medial working portal utilizing spinal needle outside in technique.? Once established I then visualized our articular cartilage of the medial compartment with a valgus stress.? Patient was found to have grade 3 chondromalacia throughout the medial compartment.? Next I inspected the meniscus.? With an arthroscopic probe was utilized to visual? all aspects of the meniscus.? Meniscal root was found to be intact.? Meniscus was found to be complex tear at the body to posterior horn junction.? I then subsequently introduced a basket forceps as well as arthroscopic shaver to perform a partial medial meniscectomy to stable meniscal tissue and then utilized a thermal wand to anneal the edges.? Next, I then performed a synovectomy of the medial compartment.? Given patient's chondromalacia there was areas of unstable articular cartilage and I subsequently performed a chondroplasty with arthroscopic shaver and thermal wand.? This completed medial compartment work. Next a introduced the arthroscope to the intercondylar notch.? ACL intact, the PCL was inspected and was found to be some intact fibers but redundant PCL was appreciated consistent with a partial tear. PCL was left alone. Patient had significant thickening of the infrapatellar fat pad spanning into the medial and lateral compartments.? I then performed an extensive synovectomy with the arthroscopic shaver of the patellofemoral medial and lateral compartments as well as the intercondylar notch. Advance the?scope?into the retrocruciate space and no loose bodies were found. Next I introduced the arthroscope into the lateral compartment the lateral compartment was found to have grade 2 chondromalacia.? Lateral meniscus was found to be intact.? The root was intact.? Given the grade II chondromalacia there is no unstable cartilage pieces to perform chondroplasty.? This completed my work of the lateral compartment and then performed a synovectomy of the lateral compartment.? Next of the arthroscope was placed into the lateral gutter and this was free of loose bodies.? Finally I reintroduced the arthroscope into the patellofemoral compartment.? The patellofemoral was found to have grade 3-4 chondromalacia of the patellofemoral compartment. Patient had exposed subchondral bone exposed on the trochlea as well as the undersurface of the patella. I subsequently performed a patellofemoral compartment chondroplasty of arthroscopic shaver and thermal wand to stable articular tissue prevent any propagation of loose bodies. At this point I utilized arthroscopic shaver as well as thermal wand to perform extensive synovectomy of the patellofemoral compartment. This completed my work of the patellofemoral space.? I then switch my portal sites to the medial working portal.? Completed the rest of my synovectomy and the rest of my examination arthroscopy was normal. All fluid was suctioned from the joint.? ?All instruments were withdrawn.? Portal sites were closed with interrupted nylon suture.? portal sites were then covered with with Xeroform 4 x 4's ABD Curlex and Klever wrap.? Patient was then subsequently awakened from anesthesia and taken to PACU in stable condition. Disposition: Patient taken to PACU in stable condition recovering well.? Will receive appropriate discharge structure as well as pain medication postoperatively as well as? DVT prophylaxis.we will have patient follow-up with us in the office in 2 weeks.? We will weightbearing as tolerated to the right lower extremity.? Patient understands and agrees with current plan.? All questions answered.
--- NOTE | 2024-08-05 13:18 | PM.PACU ---
PACU note Narrative: Patient is a 44-year-old male just doing right knee diagnostic and surgical arthroscopy. Pt transferred to PACU in stable condition. Dressing is dry. pt is awake and alert. pt can wiggle toes and plantarflex and dorsiflex foot. pt able to perform straight leg raise, Femoral nerve intact. Distal pulses are palpable toes are warm and well-perfused. Cap refill is normal and under 2 seconds. Sensation to foot is intact. Pain is controlled. Exam: awake Disposition: discharged
[2024-08-05] MEDS: HYDROcodone-acetaminophen 7.5-325 mg Tablet 1 TAB PO (14:03)
--- NOTE | 2024-08-05 14:25 | ANE.PACU2 ---
Inpatient post-anesthesia follow up: Airway intact: Yes Vital signs: Temperature 97.7 F Pulse Rate 66 Respiratory Rate 16 Blood Pressure 135/87 Pulse Oximetry 97 Oxygen Delivery Me thod Nasal Cannula Oxygen Flow Rate Fraction of Inspir ed Oxygen Hydration adequate: Yes Nausea and vomiting: No Pain level: 1 Mental status: Baseline
--- NOTE | 2024-08-10 13:54 | PC.SOCIAL ---
Pre-Cert Crutches: [facility] from [facility] calls and requests Pre-cert for crutches. Pre-cert completed. Confirmation # [id number]. Faxed to [facility] @ this time.
== END 2024-08-05 14:28 | disposition home or self-care (01) ==
PROVIDERS: Visit Provider Student in an Organized Health Care Education/Training Program
PROC: (CPT 29870; principal; 2024-08-05 10:25)
DX: S83.241A Other tear of medial meniscus, current injury, right knee, initial encounter (principal); X58.XXXA Exposure to other specified factors, initial encounter; M65.862 Other synovitis and tenosynovitis, left lower leg; M94.261 Chondromalacia, right knee; I10 Essential (primary) hypertension; E66.01 Morbid (severe) obesity due to excess calories; Z68.41 Body mass index [BMI] 40.0-44.9, adult; Z86.718 Personal history of other venous thrombosis and embolism
CPT/HCPCS: 29876; 29881; J0131; J0690; J1100; J1885; J2250; J2371; J2405; J2704; J3010; J7030

== ENCOUNTER → 2024-08-20 14:53 | Outpatient (BNVA) | payer MEDICARE, MEDICAID, SELFPAY | PROVIDERS: Visit Provider Physician Assistant | DX: Z98.890 Other specified postprocedural states (principal) | CPT/HCPCS: 99024 ==

== ENCOUNTER 2024-08-26 08:40 | Outpatient (RCR) | payer MEDICARE, MEDICAID, SELFPAY | END 2024-09-24 23:59 | disposition home or self-care (01) | LOC: SPT 08:40 | PROVIDERS: Visit Provider Physician Assistant | DX: Z98.890 Other specified postprocedural states (principal) | CPT/HCPCS: 97110; 97161 ==

== ENCOUNTER → 2024-09-15 09:00 | Outpatient (BNVA) | payer MEDICARE, MEDICAID, SELFPAY | PROVIDERS: Visit Provider Physician Assistant | DX: Z98.890 Other specified postprocedural states (principal) | CPT/HCPCS: 99024 ==

== ENCOUNTER 2024-10-29 19:54 | Emergency (ER) | payer MEDICARE, MEDICAID, SELFPAY ==
[2024-10-29 19:59] VITALS: BP 173/90; PULSE 67; RESP 18; TEMP 36.6; O2SAT 97; BMI 37.2
--- NOTE | 2024-10-29 21:15 | ED_ITS ---
HPI - Extremity Problem General: Chief complaint: Extremity Injury, Lower Stated complaint: back and hip pain (deaf) Time Seen by Provider: 10/29/24 20:09 Source: patient Mode of arrival: ambulatory Limitations: no limitations History of Present Illness: Patient is a 44-year-old deaf/nonspeaking male here for complaints of left hip pain. History is conducted via handwriting with pen and paper [id number]. He tells me he has had left hip pain since . 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 Patient tells me he used to see Dr. Levin and get intra articular injections into the hip every 6 months or so. He states his next appointment is not until November 2024. He is requesting something (injection) to help with his pain until that time. MD Complaint: joint pain Onset (ago): year(s) Pain Consistency: constant Location: left and lower extremity (hip) Radiation: none Relieving factors: other (IM injection by pain management) Associated symptoms: Reports no associated symptoms; Deny fever(s) Related Data Home Medications Medication Instructions Recorded Confirmed lisinopril 40 mg tablet 40 mg PO DAILY 09/30/22 09/15/24 Previous Rx's Medication Instructions Recorded naproxen 500 mg tablet,delayed 500 mg PO BID PRN pain #60 tabs 08/21/22 release ibuprofen 600 mg tablet 600 mg PO Q8H PRN pain #60 tabs 04/09/23 naproxen 500 mg tablet 500 mg PO BID PRN pain #20 tabs 05/13/23 aspirin 325 mg capsule 325 mg PO DAILY #30 caps 10/26/23 hydrocodone 5 mg-acetaminophen 325 1 tab PO Q12H PRN pain 10 days #20 07/03/24 mg tablet tabs ibuprofen 800 mg tablet 800 mg PO Q8H PRN pain #30 tabs 07/17/24 hydrocodone 7.5 mg-acetaminophen 1 tab PO Q6H PRN pain 5 days #20 08/17/24 325 mg tablet tabs hydrocodone 5 mg-acetaminophen 325 1 tab PO Q6H PRN pain 5 days #20 09/02/24 mg tablet tabs hydrocodone 5 mg-acetaminophen 325 1 tab PO Q6H PRN pain 5 days #20 10/20/24 mg tablet tabs Allergies Allergy/AdvReac Type Severity Reaction Status Date / Time No Known Allergies Allergy Verified 09/15/24 09:29 Review of Systems Const: Denies: fever(s), chills, body aches, fatigue or malaise Musc: Reports: joint pain (L hip); Denies: neck pain, back pain, joint swelling, joint redness, joint warmth or limited range of motion Neuro: Denies: numbness in extremities, weakness in extremities or sensory changes PFSH ED PFSH: Medical History Osteoarthritis of left hip Urolithiasis Multistone former. Spontaneously passed 2mm stone 2020. Additional bilateral small calculi Stone risk reduction strategies employed. Bilateral renal stones Left ureteral stone Bursitis and tendinitis of shoulder region Elevated blood pressure reading in office with diagnosis of hypertension Obesity (BMI 35.0-39.9 without comorbidity) Deaf, nonspeaking Deaf DVT (deep venous thrombosis) Surgical History H/O left knee surgery Social History Smoking and tobacco/nicotine status: tobacco/nicotine user, details unknown Alcohol intake: never Marital status: Single Current occupational status: employed Physical Exam Const: COMMON NORMALS: no acute distress, patient oriented x3, no limitations, alert and well nourished GENERAL APPEARANCE: cooperative Back/Pelvis: COMMON NORMALS: thoracic and lumbar spine normal to inspection, no thoracic nor lumbar tenderness, thoraco-lumbar ROM normal and straight leg raise negative bilaterally THORACIC SPINE/UPPER BACK: No thoracic spinal tenderness LUMBAR SPINE/LOWER BACK: No lumbar spinal tenderness PELVIS: Yes buttocks normal SACROILIAC JOINTS: Yes SI joints normal SACRUM: no tenderness COCCYX: no tenderness Extremity: COMMON NORMALS: capillary refill normal, no joint enlargement, no clubbing, cyanosis or edema, no calf tenderness and no pedal edema GENERAL: Yes normal exam except as noted LEFT LOWER EXTREMITY: Yes hip joint Left hip: Yes inspection (normal gross inspection) and Yes neurovascular exam (normal) Neuro: COMMON NORMALS: patient oriented x3, moves all extremities, no focal motor deficits and no sensory deficits noted SENSORIUM/ORIENTATION: Yes alert Course Vital Signs: Vital signs: Vital Signs Temperature 98 F 10/29/24 19:59 Pulse Rate 65 12/05/24 21:30 Respiratory Rate 18 10/29/24 19:59 Blood Pressure 160/90 10/29/24 21:30 Pulse Oximetry 97 10/29/24 21:30 MDM - Extremity (Nontraumatic) Medical Decision Making Patient was given an IM Depo-Medrol injection here and will recommend he follow up with Dr. Levin as scheduled. Medical Records I reviewed the patient's medical records. No radiology studies performed this visit Discharge Plan Discharge Patient Disposition: Home Clinical Impression: Congenital dysplasia of left hip Condition: Stable Prescriptions: No Action naproxen 500 mg tablet,delayed release (DR/EC) 500 mg PO BID PRN (Reason: pain) Qty: 60 1RF ibuprofen 600 mg tablet 600 mg PO Q8H PRN (Reason: pain) Qty: 60 0RF ibuprofen 800 mg tablet 800 mg PO Q8H PRN (Reason: pain) Qty: 30 1RF hydrocodone-acetaminophen 5-325 mg tablet 1 tab PO Q12H PRN (Reason: pain) 10 Days Qty: 20 0RF hydrocodone-acetaminophen 7.5-325 mg tablet 1 tab PO Q6H PRN (Reason: pain) 5 Days Qty: 20 0RF hydrocodone-acetaminophen 5-325 mg tablet 1 tab PO Q6H PRN (Reason: pain) 5 Days Qty: 20 0RF hydrocodone-acetaminophen 5-325 mg tablet 1 tab PO Q6H PRN (Reason: pain) 5 Days Qty: 20 0RF lisinopril 40 mg tablet 40 mg PO DAILY naproxen 500 mg tablet 500 mg PO BID PRN (Reason: pain) Qty: 20 0RF aspirin 325 mg capsule 325 mg PO DAILY Qty: 30 0RF Discharge Orders: Discharge ED (Routine); Ordered 10/29/24 Ordered By: Michelle Powers Activity Restrictions/Additional Instructions: Please follow-up with Dr. Levin as scheduled in November. Coding Level of Care Code ED Cost Estimating Engineer for Nati Pierce
[2024-10-29 21:30] VITALS: BP 160/90; PULSE 65; O2SAT 97
[2024-10-29] MEDS: methylPREDNISolone (DEPO) 80 MG/ML INJ 1 mL IM (21:30)
== END 2024-10-29 21:31 | disposition home or self-care (01) ==
PROVIDERS: Emergency Provider Physician Assistant
DX: Q65.89 Other specified congenital deformities of hip (principal); Z79.82 Long term (current) use of aspirin
CPT/HCPCS: 96372; 99284; J1010

== ENCOUNTER → 2024-12-07 14:21 | Outpatient (BNVA) | payer MEDICARE, MEDICAID, OTHER, SELFPAY | PROVIDERS: Visit Provider Anesthesiology Pain Medicine | DX: M54.9 Dorsalgia, unspecified (principal); M25.559 Pain in unspecified hip; M25.562 Pain in left knee; Q65.89 Other specified congenital deformities of hip; M16.12 Unilateral primary osteoarthritis, left hip; M25.552 Pain in left hip | CPT/HCPCS: 99214 ==

== ENCOUNTER → 2024-12-16 14:10 | Outpatient (BNVA) | payer OTHER, MEDICARE, MEDICAID, SELFPAY | PROVIDERS: Visit Provider Anesthesiology Pain Medicine | DX: M16.9 Osteoarthritis of hip, unspecified (principal) | CPT/HCPCS: 20610; 77002; J1010; J3490 ==

== ENCOUNTER → 2024-12-18 10:16 | Outpatient (BNVA) | payer OTHER, MEDICARE, MEDICAID, SELFPAY | PROVIDERS: Visit Provider Physician Assistant | DX: Z98.890 Other specified postprocedural states (principal); M17.11 Unilateral primary osteoarthritis, right knee | CPT/HCPCS: 20610; 99213; J3301 ==

== ENCOUNTER 2025-03-05 20:51 | Emergency (ER) | payer OTHER, SELFPAY ==
[2025-03-05 20:52] VITALS: BP 151/104; PULSE 72; RESP 18; TEMP 36.7; O2SAT 96; BMI 37.8
--- NOTE | 2025-03-05 22:01 | W.ED.EXTPRO ---
HPI - Extremity Problem General: Chief complaint: Extremity Injury, Lower Stated complaint: right leg popping severe pain back of calf Time Seen by Provider: 03/05/25 20:53 Source: patient and immigration law specialist Mode of arrival: ambulatory Limitations: no limitations History of Present Illness: Patient is a 45-year-old male who presents to ED today with a complaint of right calf pain. Patient states he was walking in a grocery store when he felt a pop to his right calf and immediately began having pain. He feels like the calf is swollen. He states pain is worse with ambulation and palpation. He has not noticed any redness or warmth. MD Complaint: extremity pain and extremity swelling Onset (ago): hour(s) Pain Consistency: constant Location: right and lower extremity (calf) Radiation: none Relieving factors: immobilization Exacerbating factors: walking and palpation Associated symptoms: Reports no associated symptoms; Deny chest pain Related Data Home Medications ?Medication ?Instructions ?Recorded ?Confirmed lisinopril 40 mg tablet 40 mg PO DAILY 09/30/22 12/18/24 metoprolol succinate 25 mg mg PO 12/07/24 12/18/24 tablet,extended release 24 hr Previous Rx's ?Medication ?Instructions ?Recorded aspirin 325 mg capsule 325 mg PO DAILY #30 caps 10/26/23 hydrocodone 5 mg-acetaminophen 325 1 tab PO Q6H PRN pain #14 tabs 03/05/25 mg tablet ibuprofen 800 mg tablet 800 mg PO Q8H PRN pain #30 tabs 03/05/25 Allergies Allergy/AdvReac Type Severity Reaction Status Date / Time No Known Allergies Allergy Verified 03/05/25 21:00 Review of Systems Card: Denies: chest pain Resp: Denies: dyspnea Musc: Reports: extremity pain and extremity swelling; Denies: neck pain, back pain, joint pain, joint swelling or joint redness Neuro: Reports: difficulty walking (due to pain in R calf); Denies: numbness in extremities, weakness in extremities or sensory changes PFSH ED PFSH: Medical History Osteoarthritis of left hip Urolithiasis Multistone former. Spontaneously passed 2mm stone 2020. Additional bilateral small calculi Stone risk reduction strategies employed. Bilateral renal stones Left ureteral stone Bursitis and tendinitis of shoulder region Elevated blood pressure reading in office with diagnosis of hypertension Obesity (BMI 35.0-39.9 without comorbidity) Deaf, nonspeaking Deaf DVT (deep venous thrombosis) Surgical History H/O left knee surgery Social History Smoking and tobacco/nicotine status: never used tobacco/nicotine Alcohol intake: never Marital status: Single Current occupational status: employed Physical Exam Const: COMMON NORMALS: no acute distress, patient oriented x3, no limitations, alert and well nourished Extremity: COMMON NORMALS: full ROM, capillary refill normal, no joint enlargement and no clubbing, cyanosis or edema GENERAL: Yes normal exam except as noted RIGHT LOWER EXTREMITY: Yes lower leg (TTP lateral R calf; edema; no ecchymosis; pain worse with plantar movements) Right lower leg: Yes neurovascular exam (normal) EXTREMITY IMAGE (BACK):  1. TTP Neuro: COMMON NORMALS: patient oriented x3, moves all extremities, no focal motor deficits and no sensory deficits noted SENSORIUM/ORIENTATION: Yes alert Course Vital Signs: Vital signs: Vital Signs Temperature 98.0 F 03/05/25 20:52 Pulse Rate 66 03/05/25 22:12 Respiratory Rate 16 03/05/25 22:12 Blood Pressure 157/83 03/05/25 22:12 Pulse Oximetry 97 03/05/25 22:12 Oxygen Delivery Me thod Room Air 03/05/25 22:12 MDM - Extremity (Nontraumatic) Medical Decision Making Patient here for right calf pain after he was walking and feeling a pop to his right calf. Suspect muscle sprain/strain, tendon tear/rupture, etc. Patient states he has crutches at home. Will place in a cam boot with heel lift here and have him follow-up with ortho. Discussed ice/elevation. Medical Records I reviewed the patient's medical records. No radiology studies performed this visit Discharge Plan Discharge Patient Disposition: Home Clinical Impression: Strain of right calf muscle Condition: Stable Prescriptions: New hydrocodone-acetaminophen 5-325 mg tablet 1 tab PO Q6H PRN (Reason: pain) Qty: 14 0RF Continued ibuprofen 800 mg tablet 800 mg PO Q8H PRN (Reason: pain) Qty: 30 0RF No Action metoprolol succinate 25 mg tablet extended release 24 hr PO lisinopril 40 mg tablet 40 mg PO DAILY aspirin 325 mg capsule 325 mg PO DAILY Qty: 30 0RF Discharge Orders: Discharge ED (Routine); Ordered 03/05/25 Ordered By: Michelle Powers Activity Restrictions/Additional Instructions: As we discussed, you need to ice and elevate the extremity is much as possible. You may use your crutches at home as needed for ambulation. You may use your cam boot-this should have included a heel lift-to help minimize tension on your calf. Case management should reach out to you to help set you up with your follow-up appointment with orthopedics. You may also follow-up with your primary care provider. Print Language: Martiniquais Coding Level of Care Code ED Field Operations Farm Manager for Nati Pierce
[2025-03-05 22:12] VITALS: BP 157/83; PULSE 66; RESP 16; O2SAT 97
[2025-03-05] MEDS: ketorolac 60 mg/2 mL INJ IM (22:24)
[2025-03-05 22:27] VITALS: RESP 16
[2025-03-05] MEDS: morphine 4 mg/mL SDV 1 mL IM (22:27)
[2025-03-05 22:56] VITALS: BP 159/89; PULSE 71; RESP 16; O2SAT 95
== END 2025-03-05 22:58 | disposition home or self-care (01) ==
PROVIDERS: Emergency Provider Physician Assistant
DX: S86.811A Strain of other muscle(s) and tendon(s) at lower leg level, right leg, initial encounter (principal); Z79.82 Long term (current) use of aspirin; X58.XXXA Exposure to other specified factors, initial encounter
CPT/HCPCS: 96372; 99284; J1885; J2270

== ENCOUNTER → 2025-03-16 07:37 | Outpatient (BNVA) | payer OTHER, SELFPAY | PROVIDERS: Visit Provider Podiatrist Foot & Ankle Surgery | DX: S86.111A Strain of other muscle(s) and tendon(s) of posterior muscle group at lower leg level, right leg, initial encounter (principal); X58.XXXA Exposure to other specified factors, initial encounter | CPT/HCPCS: 99204 ==

== ENCOUNTER 2025-03-19 12:03 | Emergency (ER) | payer OTHER, SELFPAY ==
[2025-03-19 12:25] VITALS: BP 166/86; PULSE 75; RESP 18; TEMP 36.6; O2SAT 99
--- NOTE | 2025-03-19 12:27 | W.ED.EXTPRO ---
HPI - Extremity Problem General: Chief complaint: Extremity Injury, Lower Stated complaint: rt calf pain Time Seen by Provider: 03/19/25 12:08 Source: patient Mode of arrival: ambulatory Limitations: no limitations History of Present Illness: Patient is a 45-year-old male who presents to the ED today for continued right calf pain presents with an individual who helps with translation as patient is deaf. Patient was seen by myself on 03/05 following a Injury where he was walking and heard a pop . He since followed up with Dr. Melchor on 03/16 where he was diagnosed with a strain/sprain of his Achilles tendon with plan for conservative management. He was prescribed Meloxicam. He states this medication is not helping with his pain and is causing headaches. He is requesting something stronger to help with his discomfort. He does mention the hydrocodone he was prescribed on his initial visit did help. He is icing and elevating the extremity to help with swelling. He did try to contact Dr. Melchor's office earlier today but he could not get anybody to answer. MD Complaint: extremity pain and extremity swelling Onset (ago): week(s) Pain Consistency: constant Location: right and lower extremity Radiation: none Exacerbating factors: weight bearing and walking Associated symptoms: Reports no associated symptoms; Deny chest pain or fever(s) Related Data Home Medications ?Medication ?Instructions ?Recorded ?Confirmed lisinopril 40 mg tablet 40 mg PO DAILY 09/30/22 03/16/25 metoprolol succinate 25 mg mg PO 12/07/24 03/16/25 tablet,extended release 24 hr Previous Rx's ?Medication ?Instructions ?Recorded aspirin 325 mg capsule 325 mg PO DAILY #30 caps 10/26/23 ibuprofen 800 mg tablet 800 mg PO Q8H PRN pain #30 tabs 03/05/25 meloxicam 15 mg tablet 15 mg PO DAILY #30 tabs 03/16/25 hydrocodone 5 mg-acetaminophen 325 1 tab PO Q6H pain #14 tabs 03/19/25 mg tablet Allergies Allergy/AdvReac Type Severity Reaction Status Date / Time No Known Allergies Allergy Verified 03/16/25 08:06 Review of Systems Const: Denies: fever(s) Card: Denies: chest pain Resp: Denies: dyspnea Musc: Reports: extremity pain and extremity swelling; Denies: neck pain, back pain, joint pain or joint swelling Neuro: Denies: numbness in extremities, weakness in extremities or sensory changes PFSH ED PFSH: Medical History Osteoarthritis of left hip Urolithiasis Multistone former. Spontaneously passed 2mm stone 2020. Additional bilateral small calculi Stone risk reduction strategies employed. Bilateral renal stones Left ureteral stone Bursitis and tendinitis of shoulder region Elevated blood pressure reading in office with diagnosis of hypertension Obesity (BMI 35.0-39.9 without comorbidity) Deaf, nonspeaking Deaf DVT (deep venous thrombosis) Surgical History H/O left knee surgery Social History Smoking and tobacco/nicotine status: never used tobacco/nicotine Alcohol intake: never Marital status: Single Current occupational status: employed Physical Exam Const: COMMON NORMALS: no acute distress, patient oriented x3, no limitations, alert and well nourished Resp: COMMON NORMALS: normal respiratory effort and clear to auscultation bilaterally AUSCULTATION: clear to auscultation bilaterally Cardio: COMMON NORMALS: regular rate and regular rhythm RATE: regular rate RHYTHM: regular rhythm Extremity: GENERAL: Yes normal exam except as noted RIGHT LOWER EXTREMITY: Yes lower leg (edema/pain localized to R calf muscle) Right lower leg: Yes neurovascular exam (normal) Neuro: COMMON NORMALS: patient oriented x3, moves all extremities, no focal motor deficits and no sensory deficits noted SENSORIUM/ORIENTATION: Yes alert Course Vital Signs: Vital signs: Vital Signs Temperature 97.8 F 03/19/25 12:25 Pulse Rate 75 03/19/25 12:25 Respiratory Rate 18 03/19/25 12:25 Blood Pressure 166/86 03/19/25 12:25 Pulse Oximetry 99 03/19/25 12:25 Oxygen Delivery Me thod Room Air 03/19/25 12:25 MDM - Extremity (Nontraumatic) Medical Decision Making Patient performed continued right calf pain following a strain/sprain. He has recently followed up with Dr. Melchor. Plan for conservative treatment over the next 6 weeks. He states he is not tolerating his meloxicam and that is not helping with discomfort. Recommend he transition over to a different anti-inflammatory, continued ice and elevation, and write him for a small amount of pain medication he can use sparingly for severe pain. Will have case management set him up with a follow-up appointment with Dr. Meclhor. Medical Records I reviewed the patient's medical records. No radiology studies performed this visit Discharge Plan Discharge Patient Disposition: Home Clinical Impression: Strain of right gastrocnemius muscle or tendon Condition: Stable Prescriptions: Changed hydrocodone-acetaminophen 5-325 mg tablet 1 tab PO Q6H Qty: 14 0RF No Action meloxicam 15 mg tablet 15 mg PO DAILY Qty: 30 1RF metoprolol succinate 25 mg tablet extended release 24 hr PO lisinopril 40 mg tablet 40 mg PO DAILY aspirin 325 mg capsule 325 mg PO DAILY Qty: 30 0RF ibuprofen 800 mg tablet 800 mg PO Q8H PRN (Reason: pain) Qty: 30 0RF Discharge Orders: Discharge ED (Routine); Ordered 03/19/25 Ordered By: Michelle Powers Patient Instructions: Opioid Safety, Pain Management Activity Restrictions/Additional Instructions: As we discussed, you need to continue to ice and elevate his extremity to help with pain. You may use the prescribed pain medication as needed for severe pain. Otherwise he needs to continue some form of anti-inflammatory whether that be the meloxicam, ibuprofen, or naproxen. I will have case management reach out to you to set you up with a follow-up appointment with Dr. Melchor. Print Language: Lithuanian Coding Level of Care Code ED Woodenware Assembler for Nati Pierce
[2025-03-19 12:55] VITALS: BP 166/86; PULSE 80; O2SAT 99
--- NOTE | 2025-03-19 13:04 | DCPLANNER ---
messaged podiatry for an er f/u
== END 2025-03-19 12:57 | disposition home or self-care (01) ==
PROVIDERS: Emergency Provider Physician Assistant
DX: S86.811A Strain of other muscle(s) and tendon(s) at lower leg level, right leg, initial encounter (principal); Z79.82 Long term (current) use of aspirin; X58.XXXA Exposure to other specified factors, initial encounter
CPT/HCPCS: 99283

== ENCOUNTER → 2025-04-05 12:29 | Outpatient (BNVA) | payer OTHER, SELFPAY | PROVIDERS: PCP Family Medicine; Visit Provider Podiatrist Foot & Ankle Surgery | DX: S86.111A Strain of other muscle(s) and tendon(s) of posterior muscle group at lower leg level, right leg, initial encounter (principal); S89.91XA Unspecified injury of right lower leg, initial encounter; X58.XXXA Exposure to other specified factors, initial encounter | CPT/HCPCS: 99214 ==

== ENCOUNTER 2025-05-03 07:49 | Outpatient (CLI) | payer OTHER, SELFPAY ==
--- NOTE | 2025-05-03 08:00 | MR_ITS ---
WS: [id number] INDICATION: RIGHT calf strain TECHNIQUE: Coronal T1, STIR, sagittal STIR, sagittal T1, axial T2, axial PD FINDINGS: Evidence of prior tibial tunnel. Normal bone marrow signal in the tibia and fibula. Normal signal in the calf muscles. No visualized high-grade tears. Normal signal involving the lateral and medial head of the gastrocnemius where visualized. Normal muscular signal in the plantaris. Normal calf vessel flow voids and tibioperoneal trunk flow void. MR/MR lower leg RT wo con* [id number] IMPRESSION: No acute findings visualized in the visualized RIGHT calf muscul ature. Visualized origins are incompletely visualized.
== END 2025-05-03 07:50 | disposition home or self-care (01) ==
PROVIDERS: PCP Family Medicine; Visit Provider Podiatrist Foot & Ankle Surgery
DX: S86.111A Strain of other muscle(s) and tendon(s) of posterior muscle group at lower leg level, right leg, initial encounter (principal); X58.XXXA Exposure to other specified factors, initial encounter
CPT/HCPCS: 73718

== ENCOUNTER → 2025-05-20 11:35 | Outpatient (BNVA) | payer OTHER, SELFPAY | PROVIDERS: PCP Family Medicine; Visit Provider Nurse Practitioner Family | DX: M25.552 Pain in left hip (principal); M25.562 Pain in left knee; Q65.89 Other specified congenital deformities of hip; M16.12 Unilateral primary osteoarthritis, left hip | CPT/HCPCS: 99214 ==

== ENCOUNTER → 2025-06-02 14:25 | Outpatient (BNVA) | payer OTHER, SELFPAY | PROVIDERS: PCP Family Medicine; Visit Provider Anesthesiology Pain Medicine | DX: M16.12 Unilateral primary osteoarthritis, left hip (principal) | CPT/HCPCS: 20610; 77002; J1010; J3490 ==

== ENCOUNTER → 2025-06-16 09:56 | Outpatient (BNVA) | payer OTHER, SELFPAY | PROVIDERS: PCP Family Medicine; Visit Provider Nurse Practitioner Family | DX: M17.11 Unilateral primary osteoarthritis, right knee (principal); M25.562 Pain in left knee; M16.12 Unilateral primary osteoarthritis, left hip; Q65.89 Other specified congenital deformities of hip | CPT/HCPCS: 20610; 99214; J1010; J3490 ==

== ENCOUNTER 2025-07-10 17:17 | Emergency (ER) | payer OTHER, SELFPAY ==
--- OUTSIDE RECORDS SUMMARY | 2025-07-10 17:26 | XMS_ITS | Encounter Summary ---
Author Organization [facility] Address [address] Attn: [place] [address] Care Team Providers Care Capital Equipment Specialist Name Role Phone Unavailable Primary Care Provider Unavailabl e Encounter Details Date Type Department Care Team (Late st Contact Info) Description 05/06/2002 Outpatient Historical Bunny Tomlinson MD NO ADDRESS ON FILE Social History Tobacco Use Types Packs/Day Years Used Date Smoking Tobacco: Never Assessed Sex and Gender Information Value Date Recorded Sex Assigned at Not on file Legal Sex Male 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
--- OUTSIDE RECORDS SUMMARY | 2025-07-10 17:26 | XMS_ITS | Encounter Summary ---
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
--- OUTSIDE RECORDS SUMMARY | 2025-07-10 17:26 | XMS_ITS | Encounter Summary ---
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
--- OUTSIDE RECORDS SUMMARY | 2025-07-10 17:26 | XMS_ITS | Encounter Summary ---
Author Organization [facility] Address [address] Attn: [place] [address] Care Team Providers Care Asbestos Handler Name Role Phone Unavailable Primary Care Provider Unavailabl e Encounter Details Date Type Department Care Team (Late st Contact Info) Description 05/06/2002 Outpatient Historical Bunny Tomlinson MD NO ADDRESS ON FILE Social History Tobacco Use Types Packs/Day Years Used Date Smoking Tobacco: Never Assessed Sex and Gender Information Value Date Recorded Sex Assigned at Not on file Legal Sex Male 5:26 AM SAW RUNNER Gender Identity Not on file Sexual Orientation Not on file documented as of this encounter Plan of Treatment Not on file documented as of this encounter Visit Diagnoses Not on filedocumented in this encounter
--- OUTSIDE RECORDS SUMMARY | 2025-07-10 17:26 | XMS_ITS | Encounter Summary ---
Author Organization [facility] Address [address] [place] [address] Care Team Providers Care Infection Preventionist Name Role Phone Unavailable Primary Care Provider Unavailabl e Encounter Details Date Type Department Care Team (Latest Contact Info) Description 05/12/[address] 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
--- OUTSIDE RECORDS SUMMARY | 2025-07-10 17:26 | XMS_ITS | Clinical Summary ---
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 Active traMADol-acetam inophen (ULTRACET) 37.5-325 mg tablet 03/24/2016 Active amoxicillin (AMOXIL) 500 mg capsule 02/25/2016 Active oxyCODONE-aceta minophen (PERCOCET) 5-325 mg tablet Take 1 Tablet by mouth every 4 hours as needed for Pain, Moderate or Pain, Severe Take only if needed.. Max Daily Amount: 6 Tablet 40 Tablet 0 04/25/2016 Active diazepam (VALIUM) 5 mg tablet Take 1 Tablet (5 mg) by mouth every 6 hours as needed for Anxiety or Spasm or Muscle tightness. Take only if needed.. 20 Tablet 1 04/25/2016 Active HYDROcodone-lulu taminophen (NORCO) 5-325 mg tablet Take 1 Tablet by mouth every 8 hours as needed for Pain, Mild or Pain, Moderate Take only if needed.. Max Daily Amount: 3 Tablet 20 Tablet 0 06/04/2016 Active Active Problems Problem Noted Date Diagnosed Date History of deep vein thrombosis 12/12/2015 Left knee pain 12/12/2015 Immunizations Immunization Administration Dates Next Due (TDVAX)(7 YRS UP) TETANUS AN D DIPHTHERIA TOXOIDS, ADSORBED (2 LF OF TETANUS TOXOID AND 2 LF OF DIPHTHERIA TOXOID), 0.5ML (PF), IM 08/20/1997 Dt Dtp Dtap Vaccine 08/20/1997 Family History Relation Name Status Comments Father Alive Mother Alive Social History Tobacco Use Types Packs/Day Years Used Date Smoking Tobacco: Never Smokeless Tobacco: Never Alcohol Use Standard Drinks/Week Comments No 0 (1 standard drink = 0.6 oz pur e alcohol) Sex and Gender Information Value Date Recorded Sex Assigned at Not on file 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 Gender Identity Not on file Sexual Orientation Not on file Last Filed Vital Signs Vital Sign Reading Time Taken Comments Blood Pressure 118/60 06/15/2016 9:32 AM CDT Pulse 78 06/15/2016 9:32 AM CDT Temperature 36.6 C (97.9 F) 04/25/2016 12:20 PM CDT Respiratory Rate 25 04/25/2016 12:20 PM CDT Oxygen Saturation 93% 04/25/2016 1:45 PM CDT Inhaled Oxygen Concentration - - Weight 127 kg (280 lb) 06/15/2016 9:32 AM CDT Height 188 cm (6' 2 ) 06/15/2016 9:32 AM CDT Body Mass Index 35.95 06/15/2016 9:32 AM CDT Plan of Treatment Health Maintenance Due Date Last Done Comments HPV VACCINES (1 - Male 3-dose series) 1997 HEPATITIS B VACCINES (1 of 3 - 19+ 3-dose series) 2001 DTAP/TDAP/TD VACCINES (2 - Tdap) 08/20/2007 08/20/19 97, 08/20/1997 INFLUENZA VACCINE (#1) 2025 Insurance MEDICARE PART A AND B [place] Advance Directives For more information, please contact: [phone] * Full Code (Latest Code Status on File) Date Activated Date Inactivated Comments 04/25/2016 10:09 AM 04/25/2016 4:27 PM * Full Code Date Activated Date Inactivated Comments 04/25/2016 9:13 AM 04/25/2016 10:09 AM
--- OUTSIDE RECORDS SUMMARY | 2025-07-10 17:26 | XMS_ITS | Encounter Summary ---
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
--- OUTSIDE RECORDS SUMMARY | 2025-07-10 17:26 | XMS_ITS | Clinical Summary ---
Author Organization [facility] Address [address] Attn: Epic Prelude ADT [place] [address] Care Team Providers Care Consolidation Accountant Name Role Phone Unavailable Primary Care Provider Unavailabl e Allergies No known active allergies Medications amoxicillin (AMOXIL) 500 mg capsule 02/25/2016 Active HYDROcodone-lulu taminophen (NORCO) 5-325 mg tablet Take 1 Tablet by mouth every 8 hours as needed for Pain, Mild or Pain, Moderate Take only if needed.. Max Daily Amount: 3 Tablet 20 Tablet 0 06/04/2016 Active oxyCODONE-aceta minophen (PERCOCET) 5-325 mg tablet Take 1 Tablet by mouth every 4 hours as needed for Pain, Moderate or Pain, Severe Take only if needed.. Max Daily Amount: 6 Tablet 40 Tablet 0 04/25/2016 Active traMADol-acetam inophen (ULTRACET) 37.5-325 mg tablet 03/24/2016 Active diazePAM (VALIUM) 5 mg tablet Take 1 Tablet (5 mg) by mouth every 6 hours as needed for Anxiety or Spasm or Muscle tightness. Take only if needed.. 20 Tablet 1 04/25/2016 Active dabigatran etexilate (PRADAXA) 150 mg Capsule Take by mouth 2 times daily. 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
[2025-07-10 17:27] VITALS: BP 169/96; PULSE 60; RESP 18; TEMP 36.7; O2SAT 98
--- NOTE | 2025-07-10 18:50 | XRR_ITS ---
PROCEDURE INFORMATION: Exam: XR Right Knee Exam date and time: 07/10/2025 7:17 PM Age: 45 years old Clinical indication: Pain; Knee; Right; Additional info: Right knee pain TECHNIQUE: Imaging protocol: Radiologic exam of the right knee. Views: 3 views. COMPARISON: CR XR knees AP WB w RT lmt ORTH 07/17/2024 8:27 AM FINDINGS: Bones/joints: Patient status post ACL reconstruction. There is mild narrowing of the medial knee compartment. No fracture or dislocation Soft tissues: Normal. Other findings: No significant large effusion. XR/XR knee RT 3V* [id number] IMPRESSION: No acute fracture or dislocation. Mild narrowing of the medial knee compartment could be related degenerative related Findings of prior ACL reconstructive surgery
[2025-07-10 19:42] VITALS: BP 129/105; O2SAT 98
--- NOTE | 2025-07-10 20:34 | W.ED.EXTPRO ---
Documented by User: ZEKE Julian 07/10/25 20:36 HPI - Extremity Problem General: Chief complaint: Extremity Injury, Lower Stated complaint: R leg hurting and swollen above knee Time Seen by Provider: 07/10/25 19:09 Source: patient Mode of arrival: ambulatory Limitations: physical limitation (deaf) History of Present Illness: Patient is a 45-year-old male who presents to the Emergency Department complaining of right knee pain and swelling onset today. History of surgical procedure on that knee for ligament repair, states he was walking he felt popping in his knee and into started to hurt. Pain is primarily to the anterior knee, he compares it to previous pain that he had. Noting is a 09/03. He is deaf and daughter is being used for translation. No reported trauma today. No fever or systemic symptoms of illness. Has been walking okay. Complaint: joint swelling and joint pain Onset (ago): hour(s) Pain Consistency: constant Location: right and knee Severity scale (1-10): 10 Radiation: none Exacerbating factors: walking Associated symptoms: Deny chest pain, fever(s) or rash Related Data Home Medications ?Medication ?Instructions ?Recorded ?Confirmed lisinopril 40 mg tablet 40 mg PO DAILY 09/30/22 06/16/25 metoprolol succinate 25 mg mg PO 12/07/24 06/16/25 tablet,extended release 24 hr Previous Rx's ?Medication ?Instructions ?Recorded aspirin 325 mg capsule 325 mg PO DAILY #30 caps 10/26/23 baclofen 5 mg tablet 5 mg PO BID PRN muscle spasm #60 05/20/25 tabs lidocaine 5 % topical patch 2 patch topical DAILY PRN hip pain 05/20/25 #30 ea ketorolac 10 mg tablet 10 mg PO Q8H PRN pain #15 tabs 07/10/25 prednisone 20 mg tablet 60 mg (3 x 20 mg) PO ONCE 5 days 07/10/25 #15 tabs Allergies Allergy/AdvReac Type Severity Reaction Status Date / Time No Known Allergies Allergy Verified 06/02/25 14:32 Review of Systems General: Reports: 10 or more systems reviewed and unremarkable except in HPI and below Const: Denies: fever(s) or chills Card: Denies: chest pain Resp: Denies: dyspnea or productive cough GI: Denies: abdominal pain, nausea, vomiting or diarrhea : Denies: flank pain Musc: Reports: joint pain (rt knee) and joint swelling (rt knee); Denies: neck pain, back pain, extremity pain, extremity swelling, joint redness, joint warmth, limited range of motion or muscle weakness Skin/Breast: Denies: rash Neuro: Denies: headache(s), numbness in extremities or weakness in extremities PFSH ED PFSH: Medical History Osteoarthritis of left hip Urolithiasis Multistone former. Spontaneously passed 2mm stone 2020. Additional bilateral small calculi Stone risk reduction strategies employed. Bilateral renal stones Left ureteral stone Bursitis and tendinitis of shoulder region Elevated blood pressure reading in office with diagnosis of hypertension Obesity (BMI 35.0-39.9 without comorbidity) Deaf, nonspeaking Deaf DVT (deep venous thrombosis) Surgical History H/O left knee surgery Social History Smoking and tobacco/nicotine status: unknown if used tobacco/nicotine Alcohol intake: never Marital status: Single Current occupational status: employed Physical Exam Const: COMMON NORMALS: no acute distress, patient oriented x3, healthy appearing, alert and well nourished EXAM LIMITATIONS: physical limitations (deaf) HENMT: COMMON NORMALS: normocephalic and atraumatic HEAD & SCALP: normocephalic and atraumatic Neck/C-Spine: COMMON NORMALS: full ROM, supple and no meningeal signs Resp: COMMON NORMALS: normal respiratory effort, No use of accessory muscles and clear to auscultation bilaterally AUSCULTATION: clear to auscultation bilaterally Cardio: COMMON NORMALS: regular rate and regular rhythm RATE: regular rate RHYTHM: regular rhythm Extremity: COMMON NORMALS: normal to inspection, full ROM, capillary refill normal and no clubbing, cyanosis or edema NARRATIVE EXTREMITY EXAM: Full range of motion of the right knee. Diffuse tenderness palpation right anterior knee, with mild swelling noted. It is not warm to the touch. No tenderness to the popliteal space. No calf tenderness, negative Homans' sign. No calf swelling. Distal pulses palpable. Strength intact. Neuro: COMMON NORMALS: patient oriented x3, moves all extremities, no focal motor deficits and no sensory deficits noted SENSORIUM/ORIENTATION: Yes alert MENINGEAL SIGNS: Yes no meningeal signs Skin: COMMON NORMALS: no rashes or lesions noted GENERAL SKIN EXAM: no rashes or lesions noted Course Vital Signs: Vital signs: Vital Signs Temperature 98.1 F 07/10/25 17:27 Pulse Rate 59 L 07/10/25 20:56 Respiratory Rate 18 07/10/25 20:56 Blood Pressure 154/96 07/10/25 20:56 Pulse Oximetry 97 07/10/25 20:56 Oxygen Delivery Me thod Room Air 07/10/25 17:27 MDM - Extremity (Nontraumatic) Medical Decision Making Atraumatic right knee pain, history of procedure on that same knee. The exam was unremarkable overall, I have no concern for any DVT. X-ray showing no acute findings, likely this is internal and we will send him back to orthopedics for further evaluation. In the meantime he is given crutches for nonweightbearing and knee is wrapped prior to discharge. Toradol steroid sent to pharmacy to treat any acute flareup of arthritis as he does have a history of degenerative changes. Lab Data Radiology Impressions Knee X-Ray 07/10/25 18:50 IMPRESSION: No acute fracture or dislocation. Mild narrowing of the medial knee compartment could be related degenerative related Findings of prior ACL reconstructive surgery All radiology interpretation(s) finalized by discharge Discharge Plan Discharge Patient Disposition: Home Clinical Impression: Right knee sprain Qualifiers: Encounter type: initial encounter Involved ligament of knee: unspecified ligament Qualified Code(s): S83.91XA - Sprain of unspecified site of right knee, initial encounter Condition: Stable Prescriptions: New prednisone 20 mg tablet 60 mg PO ONCE 5 Days Qty: 15 0RF ketorolac 10 mg tablet 10 mg PO Q8H PRN (Reason: pain) Qty: 15 0RF Discontinued ibuprofen 800 mg tablet 800 mg PO Q8H PRN (Reason: pain) Qty: 90 2RF No Action metoprolol succinate 25 mg tablet extended release 24 hr PO lidocaine 5 % adhesive patch,medicated 2 patch topical DAILY PRN (Reason: hip pain) Qty: 30 0RF Rx Instructions: leave on most painful area for up to 12 hrs baclofen 5 mg tablet 5 mg PO BID PRN (Reason: muscle spasm) Qty: 60 0RF lisinopril 40 mg tablet 40 mg PO DAILY aspirin 325 mg capsule 325 mg PO DAILY Qty: 30 0RF Discharge Orders: Discharge ED (Routine); Ordered 07/10/25 Ordered By: Jerome Oneal Referrals: Kevin Aguayo MD [Primary Care Provider, [facility]] Patient Instructions: Patient Portal & Pau Instructions Activity Restrictions/Additional Instructions: Knee Sprain Discharge Instructions Diagnosis and Summary: 45-year-old male with right knee pain following trauma, normal X-ray, history of prior ligamentous knee surgery, and current suspicion for internal derangement. No fracture identified. Non-weightbearing with crutches and elastic (Klever) bandage applied. Orthopedic referral arranged. Instructions: - Weightbearing: Remain strictly non-weightbearing on the right lower extremity until evaluated by orthopedics. Use crutches at all times when ambulating. Non-weightbearing is indicated in the setting of suspected significant ligamentous or meniscal injury, especially with prior surgical history, to prevent further injury and facilitate healing. - Immobilization/Support: Continue to use the elastic (Klever) bandage for compression and mild support. Ensure the wrap is snug but not so tight as to compromise distal circulation (check for numbness, tingling, or color change in the foot). While rigid immobilization is not universally recommended for all soft tissue knee injuries, temporary immobilization and compression are appropriate in cases of suspected significant internal derangement or instability pending specialist evaluation. - Elevation and Ice: Elevate the affected limb above heart level as much as possible to reduce swelling. Apply ice packs (wrapped in a towel, not directly on skin) to the knee for 20?30 minutes, 3?4 times daily for the first 48?72 hours. Cold therapy is effective for acute pain and swelling control, though it does not alter long-term recovery. - Pain Management: Acetaminophen or short-term, low-dose NSAIDs may be used for pain control if not contraindicated. Opioids are rarely indicated and should be avoided. - Activity: Avoid any activities that place stress on the injured knee, including walking without crutches, running, squatting, or twisting movements. - Monitoring: Monitor for signs of neurovascular compromise (increasing pain, numbness, tingling, pallor, or coolness of the foot), or signs of infection (increasing redness, warmth, fever). Seek immediate medical attention if these occur. - Follow-Up: Orthopedic evaluation is essential given the history of prior ligamentous repair and current suspicion for recurrent or new internal derangement. MRI may be indicated if instability, mechanical symptoms, or persistent pain are present despite normal radiographs. - Rehabilitation: Do not begin range of motion or strengthening exercises until cleared by orthopedics. Early rehabilitation is important in most knee injuries, but should be guided by specialist input in the context of suspected significant ligamentous or meniscal pathology. Rationale: This management plan is consistent with evidence-based recommendations for acute knee injuries with suspected internal derangement, emphasizing protection, symptom control, and timely specialist referral. The use of non-weightbearing and compression is supported in cases with instability or prior surgical history, while early imaging beyond radiographs (e.g., MRI) is reserved for cases with persistent symptoms or suspicion for significant internal injury. Print Language: German Coding Level of Care Code ED Drying Unit Felting Machine Operator for Chg Fwd Documented by User: Teo Howard DO 07/11/25 00:25 HPI - Extremity Problem General: Chief complaint: Extremity Injury, Lower Stated complaint: R leg hurting and swollen above knee Time Seen by Provider: 07/10/25 19:09 Related Data Home Medications ?Medication ?Instructions ?Recorded ?Confirmed lisinopril 40 mg tablet 40 mg PO DAILY 09/30/22 06/16/25 metoprolol succinate 25 mg mg PO 12/07/24 06/16/25 tablet,extended release 24 hr Previous Rx's ?Medication ?Instructions ?Recorded aspirin 325 mg capsule 325 mg PO DAILY #30 caps 10/26/23 baclofen 5 mg tablet 5 mg PO BID PRN muscle spasm #60 05/20/25 tabs lidocaine 5 % topical patch 2 patch topical DAILY PRN hip pain 05/20/25 #30 ea ketorolac 10 mg tablet 10 mg PO Q8H PRN pain #15 tabs 07/10/25 prednisone 20 mg tablet 60 mg (3 x 20 mg) PO ONCE 5 days 07/10/25 #15 tabs Allergies Allergy/AdvReac Type Severity Reaction Status Date / Time No Known Allergies Allergy Verified 06/02/25 14:32 PFSH ED PFSH: Medical History Osteoarthritis of left hip Urolithiasis Multistone former. Spontaneously passed 2mm stone 2020. Additional bilateral small calculi Stone risk reduction strategies employed. Bilateral renal stones Left ureteral stone Bursitis and tendinitis of shoulder region Elevated blood pressure reading in office with diagnosis of hypertension Obesity (BMI 35.0-39.9 without comorbidity) Deaf, nonspeaking Deaf DVT (deep venous thrombosis) Surgical History H/O left knee surgery Social History Smoking and tobacco/nicotine status: unknown if used tobacco/nicotine Alcohol intake: never Marital status: Single Current occupational status: employed Course Vital Signs: Vital signs: Vital Signs Temperature 98.1 F 07/10/25 17:27 Pulse Rate 59 L 07/10/25 20:56 Respiratory Rate 18 07/10/25 20:56 Blood Pressure 154/96 07/10/25 20:56 Pulse Oximetry 97 07/10/25 20:56 Oxygen Delivery Me thod Room Air 07/10/25 17:27 MDM - Extremity (Nontraumatic) Medical Decision Making Atraumatic right knee pain, history of procedure on that same knee. The exam was unremarkable overall, I have no concern for any DVT. X-ray showing no acute findings, likely this is internal and we will send him back to orthopedics for further evaluation. In the meantime he is given crutches for nonweightbearing and knee is wrapped prior to discharge. Toradol steroid sent to pharmacy to treat any acute flareup of arthritis as he does have a history of degenerative changes. This patient was originally seen by Mr. Kimmy PA-C. I agree with his history, evaluation, and management. Lab Data Radiology Impressions Knee X-Ray 07/10/25 18:50 IMPRESSION: No acute fracture or dislocation. Mild narrowing of the medial knee compartment could be related degenerative related Findings of prior ACL reconstructive surgery Discharge Plan Discharge Patient Disposition: Home Clinical Impression: Right knee sprain Qualifiers: Encounter type: initial encounter Involved ligament of knee: unspecified ligament Qualified Code(s): S83.91XA - Sprain of unspecified site of right knee, initial encounter Condition: Stable Prescriptions: New prednisone 20 mg tablet 60 mg PO ONCE 5 Days Qty: 15 0RF ketorolac 10 mg tablet 10 mg PO Q8H PRN (Reason: pain) Qty: 15 0RF Discontinued ibuprofen 800 mg tablet 800 mg PO Q8H PRN (Reason: pain) Qty: 90 2RF No Action metoprolol succinate 25 mg tablet extended release 24 hr PO lidocaine 5 % adhesive patch,medicated 2 patch topical DAILY PRN (Reason: hip pain) Qty: 30 0RF Rx Instructions: leave on most painful area for up to 12 hrs baclofen 5 mg tablet 5 mg PO BID PRN (Reason: muscle spasm) Qty: 60 0RF lisinopril 40 mg tablet 40 mg PO DAILY aspirin 325 mg capsule 325 mg PO DAILY Qty: 30 0RF Discharge Orders: Discharge ED (Routine); Ordered 07/10/25 Ordered By: Jerome Oneal Referrals: Kevin Aguayo MD [Primary Care Provider, [facility]] Patient Instructions: Patient Portal & Pau Instructions Activity Restrictions/Additional Instructions: Knee Sprain Discharge Instructions Diagnosis and Summary: 45-year-old male with right knee pain following trauma, normal X-ray, history of prior ligamentous knee surgery, and current suspicion for internal derangement. No fracture identified. Non-weightbearing with crutches and elastic (Klever) bandage applied. Orthopedic referral arranged. Instructions: - Weightbearing: Remain strictly non-weightbearing on the right lower extremity until evaluated by orthopedics. Use crutches at all times when ambulating. Non-weightbearing is indicated in the setting of suspected significant ligamentous or meniscal injury, especially with prior surgical history, to prevent further injury and facilitate healing. - Immobilization/Support: Continue to use the elastic (Klever) bandage for compression and mild support. Ensure the wrap is snug but not so tight as to compromise distal circulation (check for numbness, tingling, or color change in the foot). While rigid immobilization is not universally recommended for all soft tissue knee injuries, temporary immobilization and compression are appropriate in cases of suspected significant internal derangement or instability pending specialist evaluation. - Elevation and Ice: Elevate the affected limb above heart level as much as possible to reduce swelling. Apply ice packs (wrapped in a towel, not directly on skin) to the knee for 20?30 minutes, 3?4 times daily for the first 48?72 hours. Cold therapy is effective for acute pain and swelling control, though it does not alter long-term recovery. - Pain Management: Acetaminophen or short-term, low-dose NSAIDs may be used for pain control if not contraindicated. Opioids are rarely indicated and should be avoided. - Activity: Avoid any activities that place stress on the injured knee, including walking without crutches, running, squatting, or twisting movements. - Monitoring: Monitor for signs of neurovascular compromise (increasing pain, numbness, tingling, pallor, or coolness of the foot), or signs of infection (increasing redness, warmth, fever). Seek immediate medical attention if these occur. - Follow-Up: Orthopedic evaluation is essential given the history of prior ligamentous repair and current suspicion for recurrent or new internal derangement. MRI may be indicated if instability, mechanical symptoms, or persistent pain are present despite normal radiographs. - Rehabilitation: Do not begin range of motion or strengthening exercises until cleared by orthopedics. Early rehabilitation is important in most knee injuries, but should be guided by specialist input in the context of suspected significant ligamentous or meniscal pathology. Rationale: This management plan is consistent with evidence-based recommendations for acute knee injuries with suspected internal derangement, emphasizing protection, symptom control, and timely specialist referral. The use of non-weightbearing and compression is supported in cases with instability or prior surgical history, while early imaging beyond radiographs (e.g., MRI) is reserved for cases with persistent symptoms or suspicion for significant internal injury. Print Language: German Coding Level of Care Code ED Drying Unit Felting Machine Operator for Nati Pierce
[2025-07-10 20:56] VITALS: BP 154/96; PULSE 59; RESP 18; O2SAT 97
== END 2025-07-10 20:57 | disposition home or self-care (01) ==
PROVIDERS: Emergency Provider Physician Assistant; PCP Family Medicine
DX: S83.91XA Sprain of unspecified site of right knee, initial encounter (principal); Z79.82 Long term (current) use of aspirin; X58.XXXA Exposure to other specified factors, initial encounter
CPT/HCPCS: 73562; 99283; J9999

== ENCOUNTER 2025-08-22 19:58 | Emergency (ER) | payer OTHER, SELFPAY ==
[2025-08-22 20:07] VITALS: BP 127/78; PULSE 66; RESP 18; TEMP 36.9; O2SAT 99; BMI 38.5
--- OUTSIDE RECORDS SUMMARY | 2025-08-22 20:08 | XMS_ITS | Encounter Summary ---
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
--- OUTSIDE RECORDS SUMMARY | 2025-08-22 20:08 | XMS_ITS | Encounter Summary ---
Author Organization [facility] Address [address] [place] [address] Care Team Providers Care Chlorine Operator Name Role Phone Unavailable Primary Care Provider Unavailabl e Encounter Details Date Type Department Care Team (Latest Contact Info) Description 05/05/2002 Outpatient Historical [facility]- [address]tr[address], 3rd [place] [phone] Bunny Tomlinson MD NO ADDRESS ON FILE CALCULUS OF KIDNEY (Primary Dx) Social History Tobacco Use Types Packs/Day Years Used Date Smoking Tobacco: Never Assessed Sex and Gender Information Value Date Recorded Sex Assigned at Not on file 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
--- OUTSIDE RECORDS SUMMARY | 2025-08-22 20:08 | XMS_ITS | Encounter Summary ---
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
--- OUTSIDE RECORDS SUMMARY | 2025-08-22 20:08 | XMS_ITS | Encounter Summary ---
Author Organization [facility] Address [address] 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
--- OUTSIDE RECORDS SUMMARY | 2025-08-22 20:08 | XMS_ITS | Encounter Summary ---
Author Organization [facility] Address [address] 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
--- OUTSIDE RECORDS SUMMARY | 2025-08-22 20:08 | XMS_ITS | Encounter Summary ---
Author Organization [facility] Address [address] [place] [address] Care Team Providers Care Fountain Server Name Role Phone Unavailable Primary Care Provider Unavailabl e Encounter Details Date Type Department Care Team (Latest Contact Info) Description 05/12/2002 Outpatient Historical [facility] Urology- [address]tr[address], 3rd [place] [phone] Bunny Tomlinson MD NO ADDRESS ON FILE CALCULUS OF URETER (Primary Dx) Social History Tobacco Use Types Packs/Day Years Used Date Smoking Tobacco: Never Assessed Sex and Gender Information Value Date Recorded Sex Assigned at Not on file 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
--- OUTSIDE RECORDS SUMMARY | 2025-08-22 20:08 | XMS_ITS | Clinical Summary ---
Author Organization [employer] Address [address] [facility] Attn: Epic Prelude ADT [place] [address] Care Team Providers Care Tank Erector Name Role Phone Unavailable Primary Care Provider [...] on file Legal Sex Male 1:43 PM EVP Gender Identity Not on file Sexual Orientation [...] Health Maintenance Due Date Last Done Comments HEPATITIS B VACCINES (1 of 3 - 19+ 3-dose series) 2001 DTAP/TDAP/TD VACCINES (2 - Tdap) 08/20/2007 08/20/19 97, 08/20/1997 HPV VACCINES (1 - 3-dose SCDM series) 2009 INFLUENZA VACCINE (#1) 2025
--- OUTSIDE RECORDS SUMMARY | 2025-08-22 20:08 | XMS_ITS | Clinical Summary ---
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
[2025-08-22 21:20] LABS: Hematocrit 44.3 % (37-53); Hemoglobin 14.90 g/dL (11.27-16.99); Mean Corpuscular HGB Conc 33.6 g/dL (30-55); Mean Corpuscular Hemoglobin 28.9 pg (27-33); Mean Corpuscular Volume 85.9 fl (82-101); Nucleated Red Blood Cells % 0 %; Platelet Count 272 10^3/cmm (157-399); Red Blood Count 5.16 10^6/uL (3.85-5.65); White Blood Count 10.33 10^3/uL (3.29-11.43)
--- NOTE | 2025-08-22 21:35 | W.ED.ABDPA2 ---
HPI - Abdominal Pain General: Chief Complaint: Abdominal Pain Stated Complaint: Upper ADB Pain Time Seen by Provider: 08/22/25 21:22 History of Present Illness: Patient is a 45-year-old male presenting with abdominal pain of 4 days duration. The pain is localized to epigastric area of the abdomen. Patient reports having vomited once during this period and has been experiencing diarrhea. He denies any blood in the stool, which is reassuring. Patient has not attempted self-medication The abdominal pain appears to be persistent enough to prompt the patient to seek medical attention. Related Data Home Medications ?Medication ?Instructions ?Recorded ?Confirmed lisinopril 40 mg tablet 40 mg PO DAILY 09/30/22 08/06/25 metoprolol succinate 25 mg mg PO 12/07/24 08/06/25 tablet,extended release 24 hr Previous Rx's ?Medication ?Instructions ?Recorded aspirin 325 mg capsule 325 mg PO DAILY #30 caps 10/26/23 lidocaine 5 % topical patch 2 patch topical DAILY PRN hip pain 05/20/25 #30 ea methocarbamol 500 mg tablet 500 mg PO TID PRN pain #30 tabs 08/06/25 lansoprazole 30 mg capsule,delayed 30 mg PO DAILY #30 caps 08/22/25 release (Prevacid) sucralfate 1 gram tablet 1 g PO TID 4 weeks #84 tabs 08/22/25 Allergies Allergy/AdvReac Type Severity Reaction Status Date / Time No Known Allergies Allergy Verified 08/06/25 10:55 [facility] ED PFSH: Medical History Osteoarthritis of left hip Urolithiasis Multistone former. Spontaneously passed 2mm stone 2020. Additional bilateral small calculi Stone risk reduction strategies employed. Bilateral renal stones Left ureteral stone Bursitis and tendinitis of shoulder region Elevated blood pressure reading in office with diagnosis of hypertension Obesity (BMI 35.0-39.9 without comorbidity) Deaf, nonspeaking Deaf DVT (deep venous thrombosis) Surgical History H/O left knee surgery Social History Smoking and tobacco/nicotine status: unknown if used tobacco/nicotine Alcohol intake: never Marital status: Single Current occupational status: employed Physical Exam Const: COMMON NORMALS: no acute distress GENERAL APPEARANCE: cooperative; not ill appearing and not frail appearing HENMT: COMMON NORMALS: normocephalic, atraumatic and Normal external nose present HEAD & SCALP: normocephalic and atraumatic FACE & SINUS: normal facial exam and face symmetric NOSE: Normal external nose present Eye: COMMON NORMALS: Equal, round and reactive pupils present and EOMs intact bilaterally PUPIL: Yes Equal, round and reactive pupils present Neck/C-Spine: GENERAL: Yes trachea midline Chest: CHEST: Yes Symmetrical chest wall rise Resp: COMMON NORMALS: normal respiratory effort, No retractions, No use of accessory muscles and clear to auscultation bilaterally AUSCULTATION: clear to auscultation bilaterally Cardio: COMMON NORMALS: regular rate and regular rhythm RATE: regular rate RHYTHM: regular rhythm GI: COMMON NORMALS: Normal to inspection, nondistended, normoactive bowel sounds present PALPATION: Yes Tenderness to palpation present (GI) (epigastric) Extremity: COMMON NORMALS: no pedal edema Neuro: SAKSHI COMA SCALE: document GCS findings Sakshi coma scale eye opening: Spontaneous [place] coma scale verbal response: Orientated Sakshi coma scale motor response: Obey commands Sakshi coma scale total score: 15 SENSORY EXAM: Yes extremities (intact) Psych: COMMON NORMALS: speech normal SPEECH: Yes normal speech Skin: COMMON NORMALS: no rashes or lesions noted GENERAL SKIN EXAM: no rashes or lesions noted Course Vital Signs: Vital signs: Vital Signs Temperature 98.4 F 08/22/25 20:07 Pulse Rate 61 08/22/25 23:31 Respiratory Rate 18 08/22/25 20:07 Blood Pressure 141/72 08/22/25 23:31 Pulse Oximetry 96 08/22/25 23:31 Oxygen Delivery Me thod Room Air 08/22/25 23:00 MDM - Abdominal Pain Medical Decision Making 45-year-old male with epigastric discomfort. He is tender in the region. He does not appear ill. His vital signs are stable. CBC BMP are normal. Liver enzymes are normal. Lipase is normal. Pain is resolved after GI cocktail. He will be placed on a PPI and Carafate. He will return for any worsening symptoms. He is stable for discharge. Outpatient follow-up. Lab Data 08/22/25 21:15 08/22/25 21:15 Labs/Radiology: Laboratory Results WBC 10.33 10^3/uL (3.29-11.43) 08/22/25 21:15 RBC 5.16 10^6/uL (3.85-5.65) 08/22/25 21:15 Hgb 14.90 g/dL (11.27-16.99) 08/22/25 21:15 Hct 44.3 % (37-53) 08/22/25 21:15 MCV 85.9 fl (82-101) 08/22/25 21:15 MCH 28.9 pg (27-33) 08/22/25 21:15 MCHC 33.6 g/dL (30-55) 08/22/25 21:15 RDW 13.0 % (12.1-15.1) 08/22/25 21:15 Plt Count 272 10^3/cmm (157-399) 08/22/25 21:15 MPV 9.3 fL (7.4-10.4) 08/22/25 21:15 Neut % (Auto) 66.0 % 08/22/25 21:15 Lymph % (Auto) 23.4 % 08/22/25 21:15 [place] % (Auto) 7.9 % 08/22/25 21:15 Eos % (Auto) 1.9 % 08/22/25 21:15 Baso % (Auto) 0.3 % 08/22/25 21:15 Neut # (Auto) 6.81 10^3/uL (1.8-7.7) 08/22/25 21:15 Lymph # (Auto) 2.4 10^3/uL (0.8-4.8) 08/22/25 21:15 [place] # (Auto) 0.8 10^3/uL (0.2-0.9) 08/22/25 21:15 Eos # (Auto) 0.2 10^3/uL (0.0-0.8) 08/22/25 21:15 Baso # (Auto) 0.0 10^3/uL (0.0-0.1) 08/22/25 21:15 Nucleated RBC % (auto) 0 % 08/22/25 21:15 Nucleated RBCs # 0.0 /100WBC 08/22/25 21:15 Sodium 137 mmol/L (136-145) 08/22/25 21:15 Potassium 3.9 mmol/L (3.5-5.1) 08/22/25 21:15 Chloride 101 mmol/L (98-107) 08/22/25 21:15 Carbon Dioxide 26 mmol/L (22-29) 08/22/25 21:15 Anion Gap 13.9 (5-19) 08/22/25 21:15 BUN 15 mg/dL (6-20) 08/22/25 21:15 Creatinine 1.0 mg/dL (0.7-1.2) 08/22/25 21:15 GFR Calculation 81.6 mL/min (90-130) L 08/22/25 21:15 Glucose 86 mg/dL (65-115) 08/22/25 21:15 Calculated Osmolality 284 mOsm/kg (285-295) L 08/22/25 21:15 Calcium 9.0 mg/dL (8.5-10.5) 08/22/25 21:15 Total Bilirubin 0.4 mg/dL (0.15-1.2) 08/22/25 21:15 AST 15 U/L (0-40) 08/22/25 21:15 ALT 25 U/L (0-41) 08/22/25 21:15 Alkaline Phosphatase 89 U/L (40-130) 08/22/25 21:15 C-Reactive Protein 23.2 mg/L (0.0-4.9) H 08/22/25 21:15 Total Protein 6.9 g/dL (6.6-8.7) 08/22/25 21:15 Albumin 4.1 g/dL (3.5-5.2) 08/22/25 21:15 Globulin 2.8 g/dL (1.3-4.6) 08/22/25 21:15 Lipase 17 U/L (13-60) 08/22/25 21:15 No radiology studies performed this visit Discharge Plan Discharge Patient Disposition: Home Clinical Impression: Gastritis Condition: Stable Prescriptions: New sucralfate 1 gram tablet 1 g PO TID 28 Days Qty: 84 0RF lansoprazole [Prevacid] 30 mg capsule,delayed release(DR/EC) 30 mg PO DAILY Qty: 30 0RF No Action methocarbamol 500 mg tablet 500 mg PO TID PRN (Reason: pain) Qty: 30 0RF metoprolol succinate 25 mg tablet extended release 24 hr PO lidocaine 5 % adhesive patch,medicated 2 patch topical DAILY PRN (Reason: hip pain) Qty: 30 0RF Rx Instructions: leave on most painful area for up to 12 hrs lisinopril 40 mg tablet 40 mg PO DAILY aspirin 325 mg capsule 325 mg PO DAILY Qty: 30 0RF Discharge Orders: Discharge ED (Routine); Ordered 08/22/25 Ordered By: Teo Howard Referrals: Kevin Aguayo MD [Primary Care Provider, Family Practice] - 1-3 days Patient Instructions: Gastritis (ED), Opioid Safety, Pain Management, Patient Portal & Pau Instructions Activity Restrictions/Additional Instructions: Medication as directed. It is helpful to take for at least 2 weeks to allow your stomach lining to heal appropriately. Return for new or worsening symptoms such as fever, vomiting liquids, worsening pain despite treatment, etc. Call your doctor tomorrow for a follow-up appointment as an outpatient. Print Language: Thai Coding Level of Care Code ED Frame Gate Mortiser Operator for Nati Pierce
[2025-08-22 21:39] LABS: Alanine Aminotransferase 25 U/L (0-41); Albumin Level 4.1 g/dL (3.5-5.2); Alkaline Phosphatase 89 U/L (40-130); Anion Gap 13.9 (5-19); Aspartate Amino Transferase 15 U/L (0-40); Blood Urea Nitrogen 15 mg/dL (6-20); Calcium 9.0 mg/dL (8.5-10.5); Carbon Dioxide 26 mmol/L (22-29); Chloride 101 mmol/L (98-107); Creatinine Clr Calc Pharmacy 139.7759; Globulin 2.8 g/dL (1.3-4.6); Glucose 86 mg/dL (65-115); Osmolality Calculated 284 mOsm/kg (285-295); Potassium 3.9 mmol/L (3.5-5.1); Sodium 137 mmol/L (136-145); Total Protein 6.9 g/dL (6.6-8.7)
[2025-08-22 21:54] LABS: Lipase 17 U/L (13-60)
[2025-08-22 22:15] VITALS: BP 129/76; PULSE 59; O2SAT 98
[2025-08-22] MEDS: morphine 4 mg/mL SDV 1 mL IVP (22:23)
[2025-08-22] MEDS: lidocaine 2% viscous 15 ML, aluminum-mag hydrox-simethicon 30 ML, sucralfate oral liq 1 GM PO (22:23)
[2025-08-22] MEDS: ondansetron 2 mg/ML SDV 2 mL 4 MG IVP (22:23)
[2025-08-22 22:30] VITALS: BP 136/85; PULSE 65; O2SAT 94
[2025-08-22 23:00] VITALS: BP 141/72; PULSE 61; O2SAT 96
[2025-08-22 23:31] VITALS: BP 141/72; PULSE 61; O2SAT 96
== END 2025-08-22 23:45 | disposition home or self-care (01) ==
PROVIDERS: Emergency Provider Emergency Medicine; PCP Family Medicine
DX: K29.70 Gastritis, unspecified, without bleeding (principal); Z79.82 Long term (current) use of aspirin
CPT/HCPCS: 36415; 80053; 83690; 85025; 86140; 96374; 96375; 99284; J2270; J2405; J3490; J9999

== ENCOUNTER 2025-09-05 14:47 | Emergency (ER) | payer OTHER, SELFPAY ==
[2025-09-05 14:50] VITALS: BP 153/87; PULSE 69; TEMP 36.8; O2SAT 97
--- OUTSIDE RECORDS SUMMARY | 2025-09-05 14:51 | XMS_ITS | Encounter Summary ---
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
--- OUTSIDE RECORDS SUMMARY | 2025-09-05 14:51 | XMS_ITS | Encounter Summary ---
Author Organization [facility] Address [address] [place] [address] Care Team Providers Care Roller Inspector And Mender Name Role Phone Unavailable Primary Care Provider Unavailabl e Encounter Details Date Type Department Care Team (Latest Contact Info) Description 05/12/2002 Outpatient Historical [facility]rology- [address]tr[address], 3rd [place] [phone] Bunny Tomlinson MD NO ADDRESS ON FILE CALCULUS OF URETER (Primary Dx) Social History Tobacco Use Types Packs/Day Years Used Date Smoking Tobacco: Never Assessed Sex and Gender Information Value Date Recorded Sex Assigned at Not on file 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
--- OUTSIDE RECORDS SUMMARY | 2025-09-05 14:51 | XMS_ITS | Encounter Summary ---
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
--- OUTSIDE RECORDS SUMMARY | 2025-09-05 14:51 | XMS_ITS | Clinical Summary ---
Author Organization [employer] Address [address] [facility] Attn: Epic Prelude ADT [place] [address] Care Team Providers Care Sewing Machine Assembler Name Role Phone Unavailable Primary Care Provider [...] on file Legal Sex Male 1:43 PM EQUITY RESEARCH ASSOCIATE Gender Identity Not on file Sexual Orientation [...]
--- OUTSIDE RECORDS SUMMARY | 2025-09-05 14:51 | XMS_ITS | Encounter Summary ---
Author Organization [facility] Address [address] [place] [address] Care Team Providers Care Waiter/Waitress Take Out Name Role Phone Unavailable Primary Care Provider Unavailabl e Encounter Details Date Type Department Care Team (Latest Contact Info) Description 05/05/2002 Outpatient Historical [facility] Urology- [address]tr[address], 3rd [place] [phone] Bunny Tomlinson MD NO ADDRESS ON FILE CALCULUS OF KIDNEY (Primary Dx) Social History Tobacco Use Types Packs/Day Years Used Date Smoking Tobacco: Never Assessed Sex and Gender Information Value Date Recorded Sex Assigned at Not on file 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
--- OUTSIDE RECORDS SUMMARY | 2025-09-05 14:51 | XMS_ITS | Encounter Summary ---
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
--- OUTSIDE RECORDS SUMMARY | 2025-09-05 14:51 | XMS_ITS | Clinical Summary ---
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
--- OUTSIDE RECORDS SUMMARY | 2025-09-05 14:51 | XMS_ITS | Encounter Summary ---
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
--- NOTE | 2025-09-05 15:09 | ED_ITS ---
HPI - Extremity Problem General: Chief complaint: Extremity Problem,Nontraumatic Stated complaint: Hip pain Time Seen by Provider: 09/05/25 15:05 Source: patient Mode of arrival: ambulatory Limitations: no limitations History of Present Illness: Patient is a 45-year-old male who presents to ED today with complaint of left hip pain. Patient states he has chronic left hip pain and sees pain management for intra-articular injections every 3 months or so. Patient states his next appointment is this week. He states a few days ago he was walking and twisted and feels like he sprained his hip. He states his pain has been even worse than his chronic pain. He is ambulatory without difficulty or assistance here. He has not had any direct injury or trauma to the hip joint. He is not having any back pain. He has not noticed any swelling or color/temperature changes to the left leg. He is here requesting something for discomfort. MD Complaint: joint pain Onset (ago): day(s) Pain Consistency: constant Location: left and lower extremity (hip) Radiation: none Relieving factors: immobilization Exacerbating factors: range of motion, weight bearing and walking Associated symptoms: Reports no associated symptoms; Deny chest pain or fever(s) Related Data Home Medications ?Medication ?Instructions ?Recorded ?Confirmed lisinopril 40 mg tablet 40 mg PO DAILY 09/30/2207/26 metoprolol succinate 25 mg mg PO 12/07/24 08/06/25 tablet,extended release 24 hr Previous Rx's ?Medication ?Instructions ?Recorded aspirin 325 mg capsule 325 mg PO DAILY #30 caps 01/17 lidocaine 5 % topical patch 2 patch topical DAILY PRN hip pain 05/20/25 #30 ea methocarbamol 500 mg tablet 500 mg PO TID PRN pain #30 tabs 08/06/25 lansoprazole 30 mg capsule,delayed 30 mg PO DAILY #30 caps 08/22/25 release (Prevacid) sucralfate 1 gram tablet 1 g PO TID 4 weeks #84 tabs 08/22/25 tramadol 50 mg tablet 50 mg PO Q6H PRN pain #14 ta bs 09/05/25 Allergies Allergy/AdvReac Type Severity Reaction Status Date / Time No Known Allergies Allergy Verified 09/05/25 14:57 Review of Systems Const: Denies: fever(s), chills, body aches, fatigue or malaise Card: Denies: chest pain Resp: Denies: dyspnea Musc: Reports: joint pain (L hip); Denies: back pain, extremity pain, extremity swelling, joint swelling, joint redness, joint warmth, joint stiffness, muscle cramps or muscle weakness Neuro: Denies: numbness in extremities, weakness in extremities, sensory changes or difficulty walking PFSH ED PFSH: Medical History Osteoarthritis of left hip Urolithiasis Multistone former. Spontaneously passed 2mm stone 2020. Additional bilateral small calculi Stone risk reduction strategies employed. Bilateral renal stones Left ureteral stone Bursitis and tendinitis of shoulder region Elevated blood pressure reading in office with diagnosis of hypertension Obesity (BMI 35.0-39.9 without comorbidity) Deaf, nonspeaking Deaf DVT (deep venous thrombosis) Surgical History H/O left knee surgery Social History Smoking and tobacco/nicotine status: unknown if used tobacco/nicotine Alcohol intake: never Marital status: Single Current occupational status: employed Physical Exam Const: COMMON NORMALS: no acute distress, average body habitus, no limitations, healthy appearing, alert and well nourished Resp: COMMON NORMALS: normal respiratory effort and clear to auscultation bilaterally AUSCULTATION: clear to auscultation bilaterally Cardio: COMMON NORMALS: regular rate and regular rhythm RATE: regular rate RHYTHM: regular rhythm : COMMON NORMALS: Yes no CVA tenderness BLADDER/KIDNEY EXAM: Yes no CVA tenderness Back/Pelvis: COMMON NORMALS: no CVA tenderness, thoracic and lumbar spine normal to inspection and no thoracic nor lumbar tenderness Extremity: COMMON NORMALS: normal to inspection, full ROM, no joint enlargement, no clubbing, cyanosis or edema, no calf tenderness and no pedal edema GENERAL: Yes normal exam except as noted LEFT LOWER EXTREMITY: Yes hip joint Left hip: Yes inspection (normal gross inspection of the L hip), Yes ROM (full passive ROM but does complain of discomfort) and Yes neurovascular exam (normal) Neuro: COMMON NORMALS: moves all extremities, no focal motor deficits, no sensory deficits noted and gait normal SENSORIUM/ORIENTATION: Yes alert Course Vital Signs: Vital signs: Vital Signs Temperature 98.3 F 09/05/25 14:50 Pulse Rate 68 09/05/25 15:24 Blood Pressure 165/98 09/05/25 15:24 Pulse Oximetry 97 09/05/25 15:24 Oxygen Delivery Me thod Room Air 09/05/25 15:24 MDM - Extremity (Nontraumatic) Medical Decision Making Patient requesting IM shots here to help with discomfort-he will be given Toradol and Dexamethasone. He is driving so will forego any type of medication that could make him drowsy. He is requesting a prescription to help with discomfort until he can see his mirror painter. He does have a recent diagnosis of gastritis most likely related to NSAID use as he was taking Meloxicam. Hold off on additional NSAIDs at this time because of this-he is still taking his Carafate and PPI. Will write him for a small amount of Tramad ol. Continue plan to follow-up with pain management this week. Return to ED precautions discussed. Differential Diagnosis Likely superficial thrombophlebitis, lower extremity edema and deep vein thrombosis of lower extremity Medical Records I reviewed the patient's medical records. No radiology studies performed this visit Discharge Plan Discharge Patient Disposition: Home Clinical Impression: Hip pain, left Condition: Stable Prescriptions: New tramadol 50 mg tablet 50 mg PO Q6H PRN (Reason: pain) Qty: 14 0RF No Action methocarbamol 500 mg tablet 500 mg PO TID PRN (Reason: pain) Qty: 30 0RF metoprolol succinate 25 mg tablet extended release 24 hr PO lidocaine 5 % adhesive patch,medicated 2 patch topical DAILY PRN (Reason: hip pain) Qty: 30 0RF Rx Instructions: leave on most painful area for up to 12 hrs sucralfate 1 gram tablet 1 g PO TID 28 Days Qty: 84 0RF lansoprazole [Prevacid] 30 mg capsule,delayed release(DR/EC) 30 mg PO DAILY Qty: 30 0RF lisinopril 40 mg tablet 40 mg PO DAILY aspirin 325 mg capsule 325 mg PO DAILY Qty: 30 0RF Discharge Orders: Discharge ED (Routine); Ordered 09/05/25 Ordered By: Michelle Powers Referrals: Kevin Aguayo MD [Primary Care Provider, Family Practice] Patient Instructions: Opioid Safety, Pain Management, Patient Portal & Pau Instructions Activity Restrictions/Additional Instructions: As we discussed, please follow-up with your mirror painter this week as scheduled. Print Language: Rwandan Coding Level of Care Code ED [employer] Unit Feeder for Nati Pierce
[2025-09-05 15:24] VITALS: BP 165/98; PULSE 68; O2SAT 97
[2025-09-05 16:14] VITALS: BP 157/98; PULSE 66; O2SAT 95
== END 2025-09-05 16:17 | disposition home or self-care (01) ==
PROVIDERS: Emergency Provider Physician Assistant; PCP Family Medicine
DX: M25.552 Pain in left hip (principal); Z79.82 Long term (current) use of aspirin
CPT/HCPCS: 96372; 99284; J1100; J1885

== ENCOUNTER → 2025-09-28 15:25 | Outpatient (BNVA) | payer OTHER, SELFPAY | PROVIDERS: PCP Family Medicine; Visit Provider Anesthesiology Pain Medicine | DX: M19.012 Primary osteoarthritis, left shoulder (principal) | CPT/HCPCS: 20610; 77002; J1010; J3490; J9999 ==

== ENCOUNTER → 2025-10-12 09:43 | Outpatient (BNVA) | payer OTHER, SELFPAY | PROVIDERS: PCP Family Medicine; Visit Provider Nurse Practitioner Family | DX: M17.0 Bilateral primary osteoarthritis of knee (principal); M16.12 Unilateral primary osteoarthritis, left hip; Q65.89 Other specified congenital deformities of hip | CPT/HCPCS: 20610; 99214; J1010; J3490 ==

== ENCOUNTER 2025-11-03 20:06 | Emergency (ER) | payer OTHER, SELFPAY ==
[2025-11-03 20:10] VITALS: BP 154/96; PULSE 81; RESP 18; TEMP 36.8; O2SAT 97; BMI 39.1
[2025-11-03 20:58] VITALS: BP 153/77; PULSE 82; O2SAT 96
--- OUTSIDE RECORDS SUMMARY | 2025-11-03 20:58 | XMS_ITS | Clinical Summary ---
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
--- NOTE | 2025-11-03 21:16 | USR_ITS ---
PROCEDURE INFORMATION: Exam: US Duplex Left Lower Extremity Veins, Limited Exam date and time: 11/03/2025 10:53 PM Age: 45 years old Clinical indication: Pain; Leg, lower; Left; Additional info: L calf pain, h/o dvt TECHNIQUE: Imaging protocol: Real-time duplex ultrasound of the left extremity with 2-D benavides scale, color Doppler flow and spectral waveform analysis including responses to compression and other maneuvers (when performed) with image documentation. Limited exam focused on the left lower extremity veins. COMPARISON: US CV venous duplex [facility] [id number] 10/26/2023 12:30 AM FINDINGS: Left deep veins: Unremarkable. The common femoral, femoral, proximal profunda femoral and popliteal veins are patent without thrombus. Normal Doppler waveforms. Normal compressibility and/or augmentation response. Superficial veins: Greater saphenous vein at the saphenofemoral junction is patent without thrombus. Soft tissues: Unremarkable. US/CV venous duplex [facility] [id number] IMPRESSION: No evidence of deep vein thrombosis.
--- NOTE | 2025-11-03 21:16 | W.ED.EXTPRO ---
HPI - Extremity Problem General: Chief complaint: Extremity Problem,Nontraumatic Stated complaint: Left knee pain. and on blood thinner. Time Seen by Provider: 11/03/25 20:33 History of Present Illness: Patient is a 45-year-old patient with a history of DVT status post surgery of his left knee (meniscus, PCL repair), not currently anticoagulated, presents with a chief complaint of left calf pain and cramping since this morning. Patient has not had a fever, denies chest pain, shortness of breath, hemoptysis, syncope, abdominal pain, nausea, vomiting. Patient states that he has been eating and drinking normally, no reason he would be dehydrated. Patient does not recall any trauma or falls. Patient denies any left knee joint swelling, erythema or significant pain with range of motion. Patient has not noted any skin changes such as wounds, redness, streaking over the area. Patient describes the pain as shooting/electrical pain. Related Data Home Medications ?Medication ?Instructions ?Recorded ?Confirmed lisinopril 40 mg tablet 40 mg PO DAILY 09/30/22 10/14/25 metoprolol succinate 25 mg mg PO 12/07/24 10/14/25 tablet,extended release 24 hr Previous Rx's ?Medication ?Instructions ?Recorded aspirin 325 mg capsule 325 mg PO DAILY #30 caps 10/26/23 lansoprazole 30 mg capsule,delayed 30 mg PO DAILY #30 caps 08/22/25 release (Prevacid) tramadol 50 mg tablet 50 mg PO Q6H PRN pain #14 tabs 09/05/25 knrstsnbqhobpch-jejsuaceqaedozd-CC 5 ml PO Q6H PRN cold symptoms #118 10/14/25 2 mg-30 mg-10 mg/5 mL oral syrup mL (Bromfed DM) Allergies Allergy/AdvReac Type Severity Reaction Status Date / Time No Known Allergies Allergy Verified 10/14/25 16:29 [facility] ED PFSH: Medical History (Updated 11/03/25 @ 23:58 by Jaja Mendoza MD) Osteoarthritis of left hip Urolithiasis Multistone former. Spontaneously passed 2mm stone 2020. Additional bilateral small calculi Stone risk reduction strategies employed. Bilateral renal stones Left ureteral stone Bursitis and tendinitis of shoulder region Elevated blood pressure reading in office with diagnosis of hypertension Obesity (BMI 35.0-39.9 without comorbidity) Deaf, nonspeaking Deaf DVT (deep venous thrombosis) Surgical History H/O left knee surgery Social History Smoking and tobacco/nicotine status: never used tobacco/nicotine Alcohol intake: never Marital status: Single Current occupational status: employed Physical Exam Narrative: EXAM NARRATIVE: Vital signs were reviewed. Patient is alert and oriented. Patient is breathing comfortably, no increased WOB or accessory muscle use. SpO2 is above 95% on RA. No hypotension or tachycardia. Patient is moving all extremities, no deformity or gross injury. No asymmetric swelling of LE, no edema, no wounds, no erythema. No swelling, erythema, warmth of the knee joint, L. Normal ROM of L knee joint. +2 DP and PT pulses. Course Vital Signs: Vital signs: Vital Signs Temperature 98.3 F 11/03/25 20:10 Pulse Rate 82 11/03/25 20:58 Respiratory Rate 18 11/03/25 20:10 Blood Pressure 146/90 11/03/25 23:21 Pulse Oximetry 94 11/03/25 23:21 Oxygen Delivery Me thod Room Air 11/03/25 23:21 MDM - Extremity (Nontraumatic) Medical Decision Making 45-year-old male presents with a chief complaint of atraumatic left calf swelling that started today. Patient denies systemic symptoms. He does have a history of DVT. Differential diagnosis includes but is limited to, DVT, peripheral neuropathy, cellulitis, abscess, contusion, muscle cramp/spasm, other. Patient was treated with naproxen, Tylenol and Robaxin p.o. He was evaluate CBC, BMP, magnesium and ultrasound of the left lower extremity to rule out a DVT. Patient has a normal white blood cell count, he is not anemic, no electrolyte abnormalities; has a normal magnesium and potassium. D-dimer is elevated but ultrasound does not show evidence of DVT. Externally, I do not see clinical signs of infection or wound. Patient has palpable PT and DP pulses and nonischemic appearing extremities, have low suspicion for arterial occlusion or emergency. At this time, I do not appreciate a medical emergency, patient is stable for follow-up with his primary care physician on an outpatient basis. Patient was counseled on supportive care at home, given return precautions and discharged in stable condition with recommendation for outpatient follow-up with primary care nurse or doctor. Lab Data 11/03/25 21:52 11/03/25 21:52 Radiology Impressions Venous Duplex 11/03/25 21:16 IMPRESSION: No evidence of deep vein thrombosis. Laboratory Results WBC 11.02 10^3/uL (3.29-11.43) 11/03/25 21:52 RBC 4.94 10^6/uL (3.85-5.65) 11/03/25 21:52 Hgb 14.30 g/dL (11.27-16.99) 11/03/25 21:52 Hct 42.1 % (37-53) 11/03/25 21:52 MCV 85.2 fl (82-101) 11/03/25 21:52 MCH 28.9 pg (27-33) 11/03/25 21:52 MCHC 34.0 g/dL (30-55) 11/03/25 21:52 RDW 12.5 % (12.1-15.1) 11/03/25 21:52 Plt Count 304 10^3/cmm (157-399) 11/03/25 21:52 MPV 9.1 fL (7.4-10.4) 11/03/25 21:52 Neut % (Auto) 66.9 % 11/03/25 21:52 Lymph % (Auto) 23.4 % 11/03/25 21:52 [place] % (Auto) 6.5 % 11/03/25 21:52 Eos % (Auto) 2.3 % 11/03/25 21:52 Baso % (Auto) 0.5 % 11/03/25 21:52 Neut # (Auto) 7.38 10^3/uL (1.8-7.7) 11/03/25 21:52 Lymph # (Auto) 2.6 10^3/uL (0.8-4.8) 11/03/25 21:52 [place] # (Auto) 0.7 10^3/uL (0.2-0.9) 11/03/25 21:52 Eos # (Auto) 0.3 10^3/uL (0.0-0.8) 11/03/25 21:52 Baso # (Auto) 0.1 10^3/uL (0.0-0.1) 11/03/25 21:52 Nucleated RBC % (auto) 0 % 11/03/25 21:52 Nucleated RBCs # 0.0 /100WBC 11/03/25 21:52 D-Dimer 1.78 ug/mLFEU (0-0.59) H 11/03/25 21:52 Sodium 140 mmol/L (136-145) 11/03/25 21:52 Potassium 4.3 mmol/L (3.5-5.1) 11/03/25 21:52 Chloride 103 mmol/L (98-107) 11/03/25 21:52 Carbon Dioxide 28 mmol/L (22-29) 11/03/25 21:52 Anion Gap 13.3 (5-19) 11/03/25 21:52 BUN 19 mg/dL (6-20) 11/03/25 21:52 Creatinine 0.9 mg/dL (0.7-1.2) 11/03/25 21:52 GFR Calculation 92.1 mL/min (90-130) 11/03/25 21:52 Glucose 92 mg/dL (65-115) 11/03/25 21:52 Calculated Osmolality 292 mOsm/kg (285-295) 11/03/25 21:52 Calcium 9.1 mg/dL (8.5-10.5) 11/03/25 21:52 Magnesium 2.0 mg/dL (1.7-2.3) 11/03/25 21:52 All radiology interpretation(s) finalized by discharge Discharge Plan Discharge Patient Disposition: Home Clinical Impression: Pain of left calf Condition: Stable Prescriptions: No Action metoprolol succinate 25 mg tablet extended release 24 hr PO [id number] [Bromfed DM] 2-30-10 mg/5 mL syrup 5 ml PO Q6H PRN (Reason: cold symptoms) Qty: 118 0RF lansoprazole [Prevacid] 30 mg capsule,delayed release(DR/EC) 30 mg PO DAILY Qty: 30 0RF tramadol 50 mg tablet 50 mg PO Q6H PRN (Reason: pain) Qty: 14 0RF lisinopril 40 mg tablet 40 mg PO DAILY aspirin 325 mg capsule 325 mg PO DAILY Qty: 30 0RF Discharge Orders: Discharge ED (Routine); Ordered 11/03/25 Ordered By: aJja Mendoza Referrals: Kevin Aguayo MD [Primary Care Provider, Family Practice] Patient Instructions: Opioid Safety, Pain Management, Patient Portal & Pau Instructions, Leg Pain (ED) Activity Restrictions/Additional Instructions: Please continue to monitor your condition closely at home. Take Ibuprofen 400mg and Tylenol 500-1000mg every six hours for pain and inflammation. If your condition worsens or additional concerns arise, please return promptly to the emergency department for reassessment. Follow up with your primary care doctor in one week. Print Language: Arabic Coding Level of Care Code ED Student Success Coach for Nati Pierce
--- NOTE | 2025-11-03 21:52 | PC.NURSE ---
Car Pincher used for pt. pt. is deaf.
[2025-11-03 21:59] LABS: Hematocrit 42.1 % (37-53); Hemoglobin 14.30 g/dL (11.27-16.99); Mean Corpuscular HGB Conc 34.0 g/dL (30-55); Mean Corpuscular Hemoglobin 28.9 pg (27-33); Mean Corpuscular Volume 85.2 fl (82-101); Nucleated Red Blood Cells % 0 %; Platelet Count 304 10^3/cmm (157-399); Red Blood Count 4.94 10^6/uL (3.85-5.65); White Blood Count 11.02 10^3/uL (3.29-11.43)
[2025-11-03 22:21] LABS: Anion Gap 13.3 (5-19); Blood Urea Nitrogen 19 mg/dL (6-20); Calcium 9.1 mg/dL (8.5-10.5); Carbon Dioxide 28 mmol/L (22-29); Chloride 103 mmol/L (98-107); Glucose 92 mg/dL (65-115); Magnesium 2.0 mg/dL (1.7-2.3); Osmolality Calculated 292 mOsm/kg (285-295); Potassium 4.3 mmol/L (3.5-5.1); Sodium 140 mmol/L (136-145)
[2025-11-03 23:21] VITALS: BP 146/90; O2SAT 94
[2025-11-04 00:19] VITALS: BP 1547/98; PULSE 74; O2SAT 96
== END 2025-11-04 00:21 | disposition home or self-care (01) ==
PROVIDERS: Emergency Provider Emergency Medicine; PCP Family Medicine
DX: M79.662 Pain in left lower leg (principal); Z79.82 Long term (current) use of aspirin
CPT/HCPCS: 36415; 80048; 83735; 85025; 85378; 93971; 99284; J9999